=== PATIENT | female | born 1950 | race Caucasian/White ===

== ENCOUNTER 2021-11-23 10:44 | Inpatient (IN) ==
[2021-11-23 11:28] LABS: Basophils # (auto) 0.03 K/uL (0-0.2); Basophils % (auto) 0.2 %; Eosinophils # (auto) 0.05 K/uL (0-0.50); Eosinophils % (auto) 0.4 %; Hematocrit (blood only) 34.9 % (34.1-44.9); Hemoglobin 12.1 g/dl (12.0-16.0); Immature Granulocytes # (auto) 0.06 K/uL (0.00-0.02); Immature Granulocytes % (auto) 0.5 %; Lymphocytes # (auto) 1.83 K/uL (1.2-3.4); Lymphocytes % (auto) 14.7 %; Mean Corpuscular Hemoglobin 31.8 pg (25.0-34.0); Mean Corpuscular Hgb Conc 34.7 g/dL (32.0-36.0); Mean Corpuscular Volume 91.6 fL (80.0-100.0); Mean Platelet Volume 8.9 fL (9.4-12.3); Monocytes # (auto) 0.72 K/uL (0.24-0.82); Monocytes % (auto) 5.8 %; Neutrophils # (auto) 9.73 K/uL (1.4-6.5); Neutrophils % (auto) 78.4 %; Platelet Count 398 K/uL (130-400); RDW Standard Deviation 40.6 fL (36.4-46.3); Red Blood Count 3.81 M/uL (3.93-5.22); White Blood Count 12.42 K/ul (4.8-10.8)
[2021-11-23 11:46] LABS: Alanine Aminotransferase 12 U/L (7-52); Albumin Globulin Ratio 1.6 (0.9-2); Albumin Level 4.5 gm/dl (3.4-5.0); Alkaline Phosphatase 66 U/L (34-104); Anion Gap 14 (3-11); Aspartate Aminotransferase 12 U/L (13-39); BUN Creatinine Ratio 21.8 (10-20); Blood Urea Nitrogen 44 mg/dl (6-23); Calcium 9.8 mg/dl (8.5-10.1); Carbon Dioxide 22 mmol/L (21-32); Chloride 93 mmol/L (98-107); Est GFR (African American) 28.5 ml/min; Est GFR (Non-African American) 24.5 ml/min; Globulin 2.8 gm/dl (2.5-4.0); Glucose 165 mg/dl (70-99(Fasting)); Potassium 4.9 mmol/L (3.5-5.1); Sodium 129 mmol/L (136-145); Total Protein 7.3 gm/dl (6.0-8.3)
--- NOTE | 2021-11-23 12:10 | XRay Report ---
XR chest 1V portable HISTORY: Altered mental status. weakness COMPARISON: None. FINDINGS: No pneumothorax. No pleural effusions. There are low lung volumes. The heart is top normal in size. There are calcifications within the aortic knob. No focal lung consolidations to suggest pne umonia. No evidence for pulmonary edema. Small linear density lateral base of the left lower lobe fav ors subsegmental atelectasis are scarring. IMPRESSION: Low lung volumes. Otherwise, no acute process within the chest. ACT 112: Negative or not required by law. Electronically signed by: Moris Ann M.D. 11/23/2021 12:08 PM
--- NOTE | 2021-11-23 12:36 | Electrocardiogram Report ---
Test Reason : Blood Pressure : / mmHG Vent. Rate : 080 BPM Atrial Rate : 080 BPM P-R Int : 200 ms QRS Dur : 076 ms QT Int : 376 ms P-R-T Axes : 052 032 063 degrees QTc Int : 433 ms Normal sinus rhythm Low voltage QRS Abnormal ECG No previous ECGs available Confirmed by Artem Alcantar ([id number]) on 11/23/2021 12:36:27 PM Referred By: SELF Confirmed By:Mateusz Alcantar
[2021-11-23] MEDS ORDERED: QUEtiapine FUMARATE 25 MG TABLET PO STA (12:40)
[2021-11-23] MEDS ORDERED: SODIUM CHLORIDE 0.9% 1000ML 500 ML IV ONE (12:41)
[2021-11-23] MEDS ORDERED: HALOPERIDOL LACTATE 5 MG/ML 1 ML VIAL ONE (13:29)
[2021-11-23] MEDS: SODIUM CHLORIDE 0.9% 1000ML 1,000 ML IV SCH ×2 (13:36→21:58)
--- NOTE | 2021-11-23 14:00 | CT Scan Report ---
CT SCAN OF THE BRAIN WITHOUT IV CONTRAST CLINICAL HISTORY: Change in mental status. COMPARISON STUDY: No priors. TECHNIQUE: Unenhanced axial CT scan of the brain is performed from the vertex to the skull base. A do se lowering technique was utilized adhering to the principles of ALARA. CT DOSE: 537.48 mGy.cm FINDINGS: Brain parenchyma: There is age-related involutional change noting minimal subcortical and periventric ular microangiopathic disease. There is no hemorrhage, mass effect, or evidence of acute territorial ischemia by CT criteria. Ramos-white matter differentiation is preserved. No extra-axial fluid collect ion is seen. Ventricles, sulci, cisterns: Prominent secondary to involutional change. Intracranial vasculature: There is atherosclerotic calcification of the cavernous carotid arteries. Calvarium: Unremarkable. Sinuses and mastoids: The visualized paranasal sinuses are clear. The mastoid air cells are well pneu matized. Orbits: The bony orbits are grossly intact. There is a right ocular lens implant. IMPRESSION: There is no hemorrhage, mass effect, or evidence of acute territorial ischemia by CT chun urbina. ACT 112: Negative or not required by law. Electronically signed by: Sridhar Sifuentes M.D. 11/23/2021 1:59 PM
--- NOTE | 2021-11-23 15:35 | Emergency Department Note ---
Impression & Plan Hyponatremia, Acute kidney injury, Psychosis, Acute dehydration ED Provider Note CHIEF COMPLAINT: Abnormal labs, confusion HISTORY OF PRESENT ILLNESS: This 71-year-old female patient presents to the emergency department with complaints of laboratory work with an elevated creatinine and increase in psychotic thinking. The patient is currently an inpatient at the [facility] and was referred to our emergency department because of the low sodium and creatinine that has apparently gone from 0.9-2 over the last several days. The patient has had a decreased p.o. intake and does have some paranoid thinking. She is on multiple blood pressure medications in addition to her psychiatric treatments. She does have a history of diabetes. Patient is currently unable to answer questions and does have tangential thought process. She is unwilling to take any medications currently. REVIEW OF SYSTEMS: Unable to perform a full review of systems secondary to the patient's mental status/psychiatric illness. ALLERGIES: see below MEDICATIONS: see below PMH: see below SOCIAL HISTORY: see below DDx:Infection, dehydration, metabolic abnormality, hypo/hyperglycemia, el ectrolyte disturbance, anemia, hypoxia, cardiac sources, intracerebral event, toxicologic, neurologic, as well as other pathologies. PHYSICAL EXAM: Vital signs reviewed. General: Well-appearing 71-year-old female, in no significant distress. Slightly disheveled but ambulatory about the room. HEENT: No scleral icterus, PERRLA, neck supple. Dry mucous membranes. Cardiovascular: Regular rate and rhythm, no extra sounds. Pulmonary: Clear to auscultation bilaterally, normal work of breathing. Abdomen: Soft, nontender, nondistended, positive bowel sounds. Musculoskeletal: Atraumatic, no peripheral edema. Psychiatric: Paranoid about people present in the room. Speaking about Nazis and her parents. Accusatory thinking. Unable to answer more specific questions or to be redirected. Neurologic: Patient awake alert and aware that she is in the hospital. Believes that she is in [place] Skin: Warm, dry, no rash EMERGENCY DEPARTMENT COURSE/MDM: This patient was evaluated and appeared to be in no significant distress. The patient was somewhat paranoid and psychotic. She refused to take her Seroquel but was willing to take an IV. Patient took IV fluids but ripped out her IV shortly thereafter. She did receive 2.5 mg of IV Haldol. CT imaging of the head was performed and is negative for acute pathology. Electrolytes are significant only for mild hyponatremia at 129. Potassium is 4.9. I do believe the patient's renal insufficiency is explained by her medications including HCTZ and lisinopril as well as her poor p.o. intake. She refused p.o. fluids for me. She was willing to receive IV fluids and received at least 1 full liter of normal saline solution and had small 250 to 500 cc out of the second bag prior to ripping out her IV. Receive a call from Dr. Cote at the [facility] is concerned about the level of medical support that they have at their facility. I do believe that with some medication adjustments and helping the patient return to baseline p.o. intake the creatinine will recover. Nonetheless a renal ultrasound has been ordered and the hospitalist service has been consulted to ensure the patient is in optimal medical condition prior to returning for psychiatric care. Dr. Cote is aware that we do not have a psychiatrist available on the inpatient service this week due to staffing issues and COVID. MONITORING: An order for cardiac monitoring was placed and the patient is noted to be in a normal sinus rhythm at 73 beats per minute. RADIOLOGY: See below EKG: Normal sinus rhythm at 80 bpm. Low voltage QRS. QTC is 433. No PVC, no PVC. QTC is 433. No previous for comparison. DISPOSITION: Hospitalist consult Past Med/Surg History Medical History Acute dehydration Acute kidney injury Benzodiazepine withdrawal Diabetes Hypertension Hyponatremia Psychosis Surgical History (Updated 11/27/21 @ 09:35 by Gallo Hurley MD) S/P cataract surgery Family History Father , age 65 of an HI Myocardial infarction Mother , age 86 of congestive heart failure Heart disease Social History Smoking Status: Never smoker Hx Alcohol Use: No Hx Substance Use: Yes (unknown) Preferred Language: [place] Communication Ability: Impaired Slotter Operator Required: No Beliefs That Will Affect Care: None Current Living Situation: Spouse current occupational status: retired 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 Feels Safe at Home: Yes Assistive Devices: Cane Allergies Allergies Allergy/AdvReac Type Severity Reaction Status Date / Time ciprofloxacin Allergy Intermediate itching Unverified 11/23/21 10:55 Home Meds Home Medications Medication Instructions Recorded Confirmed acetaminophen 325 mg tablet 650 mg PO Q4H PRN Pain 11/23/21 11/23/21 atorvastatin 20 mg tablet 20 mg PO HS 11/23/21 11/23/21 metformin 500 mg tablet 1,000 mg PO BID 11/23/21 11/23/21 sitagliptin 50 mg tablet (Januvia) 50 mg PO BID 11/23/21 11/23/21 Previous Rx's Medication Instructions Recorded amlodipine 5 mg tablet 5 mg PO QAM #30 tabs 11/28/21 lisinopril 20 mg tablet 20 mg PO QAM #30 tabs 11/28/21 lorazepam 0.5 mg tablet 0.5 mg PO TID #30 tabs 11/28/21 quetiapine 25 mg tablet (Seroquel) 25 mg PO HS #30 tabs 11/28/21 valproic acid 250 mg capsule 500 mg PO BID #120 caps 11/28/21 Results & Data (ED) Vital Signs Vital Signs - 24 hr 11/23/21 10:38 11/23/21 11:02 11/23/21 11:10 Temperature 36.8 C Temperature Source Oral Pulse Rate 77 80 82 Pulse Rate from SpO2 Sensor 79 87 Pulse Rhythm Regular Respiratory Rate 16 22 17 Respiratory Depth Normal Blood Pressure 134/73 Blood Pressure Mean 93 Pulse Oximetry 100 97 98 Oxygen Delivery Method Room Air Sepsis Recent Fever Within 48 Hours No Sepsis New/Unexplained Change in Mental Status No Sepsis Action Taken by Nursing No Action Required 11/23/21 11:18 11/23/21 11:20 11/23/21 11:30 Temperature Temperature Source Pulse Rate 81 71 Pulse Rate from SpO2 Sensor Pulse Rhythm Respiratory Rate 21 12 Respiratory Depth Blood Pressure Blood Pressure Mean Pulse Oximetry 98 Oxygen Delivery Method Room Air Sepsis Recent Fever Within 48 Hours Sepsis New/Unexplained Change in Mental Status Sepsis Action Taken by Nursing 11/23/21 11:40 11/23/21 11:50 11/23/21 13:35 Temperature Temperature Source Pulse Rate 68 77 Pulse Rate from SpO2 Sensor Pulse Rhythm Respiratory Rate 15 23 Respiratory Depth Blood Pressure 114/59 L Blood Pressure Mean 77 Pulse Oximetry Oxygen Delivery Method Sepsis Recent Fever Within 48 Hours Sepsis New/Unexplained Change in Mental Status Sepsis Action Taken by Nursing 11/23/21 13:40 11/23/21 13:52 11/23/21 14:00 Temperature Temperature Source Pulse Rate 64 49 L 52 L Pulse Rate from SpO2 Sensor 65 50 L 53 L Pulse Rhythm Respiratory Rate 16 18 18 Respiratory Depth Blood Pressure Blood Pressure Mean Pulse Oximetry 94 95 95 Oxygen Delivery Method Sepsis Recent Fever Within 48 Hours Sepsis New/Unexplained Change in Mental Status Sepsis Action Taken by Nursing 11/23/21 14:10 Temperature Temperature Source Pulse Rate 73 Pulse Rate from SpO2 Sensor Pulse Rhythm Respiratory Rate 15 Respiratory Depth Blood Pressure Blood Pressure Mean Pulse Oximetry Oxygen Delivery Method Sepsis Recent Fever Within 48 Hours Sepsis New/Unexplained Change in Mental Status Sepsis Action Taken by [facility] Medications Current Medication List: was personally reviewed by me Laboratory Data Attestation: I reviewed the patient's lab results. Result diagrams: 11/27/21 05:36 11/27/21 05:36 Lab Results 11/23/21 11/23/21 11/23/21 Range/Units 10:52 10:52 10:52 WBC 12.42 H (4.8-10.8) K/ul RBC 3.81 L (3.93-5.22) M/uL Hgb 12.1 (12.0-16.0) g/dl Hct 34.9 (34.1-44.9) % MCV 91.6 (80.0-100.0) fL MCH 31.8 (25.0-34.0) pg MCHC 34.7 (32.0-36.0) g/dL RDW Std Deviation 40.6 (36.4-46.3) fL RDW Coeff of Farida 12.0 (11.5-14.5) % Plt Count 398 (130-400) K/uL MPV 8.9 L (9.4-12.3) fL Immature Gran % (Auto) 0.5 % Neut % (Auto) 78.4 % Lymph % (Auto) 14.7 % Thomas % (Auto) 5.8 % Eos % (Auto) 0.4 % Baso % (Auto) 0.2 % Neut # (Auto) 9.73 H (1.4-6.5) K/uL Lymph # (Auto) 1.83 (1.2-3.4) K/uL Thomas # (Auto) 0.72 (0.24-0.82) K/uL Eos # (Auto) 0.05 (0-0.50) K/uL Baso # (Auto) 0.03 (0-0.2) K/uL Immature Gran # (Auto) 0.06 H (0.00-0.02) K/uL Sodium 129 L (136-145) mmol/L Potassium 4.9 (3.5-5.1) mmol/L Chloride 93 L (98-107) mmol/L Carbon Dioxide 22 (21-32) mmol/L Anion Gap 14 H (3-11) BUN 44 H (6-23) mg/dl Creatinine 2.02 H (0.6-1.2) mg/dl Est Cr Clr Drug Dosing Not Reportable Est GFR ( Amer) 28.5 ml/min Est GFR (Non-Af Amer) 24.5 ml/min BUN/Creatinine Ratio 21.8 H (10-20) Glucose 165 H (70-99(Fasting)) mg/dl Calcium 9.8 (8.5-10.1) mg/dl Total Bilirubin 2.0 H (0.2-1.0) mg/dl AST 12 L (13-39) U/L ALT 12 (7-52) U/L Alkaline Phosphatase 66 (34-104) U/L Total Protein 7.3 (6.0-8.3) gm/dl Albumin 4.5 (3.4-5.0) gm/dl Globulin 2.8 (2.5-4.0) gm/dl Albumin/Globulin Ratio 1.6 (0.9-2) TSH 1.231 (0.300-4.500) uIu/ml Urine Color Urine Appearance (Clear) Urine pH (4.5-7.5) Ur Specific [place] (1.000-1.030) Urine Protein (Negative) Urine Glucose (UA) (Negative) Urine Ketones (Negative) Urine Blood (Negative) Urine Nitrite (Negative) Urine Bilirubin (Negative) Urine Urobilinogen (Negative) Ur Leukocyte Esterase (Negative) SARS-CoV-2, RNA, NAAT (NEGATIVE) 11/23/21 11/23/21 11/23/21 Range/Units 11:22 15:25 21:30 WBC (4.8-10.8) K/ul RBC (3.93-5.22) M/uL Hgb (12.0-16.0) g/dl Hct (34.1-44.9) % MCV (80.0-100.0) fL MCH (25.0-34.0) pg MCHC (32.0-36.0) g/dL RDW Std Deviation (36.4-46.3) fL RDW Coeff of Farida (11.5-14.5) % Plt Count (130-400) K/uL MPV (9.4-12.3) fL Immature Gran % (Auto) % Neut % (Auto) % Lymph % (Auto) % Thomas % (Auto) % Eos % (Auto) % Baso % (Auto) % Neut # (Auto) (1.4-6.5) K/uL Lymph # (Auto) (1.2-3.4) K/uL Thomas # (Auto) (0.24-0.82) K/uL Eos # (Auto) (0-0.50) K/uL Baso # (Auto) (0-0.2) K/uL Immature Gran # (Auto) (0.00-0.02) K/uL Sodium 129 L (136-145) mmol/L Potassium 4.5 (3.5-5.1) mmol/L Chloride 97 L (98-107) mmol/L Carbon Dioxide 20 L (21-32) mmol/L Anion Gap 12 H (3-11) BUN 44 H (6-23) mg/dl Creatinine 1.91 H (0.6-1.2) mg/dl Est Cr Clr Drug Dosing Not Reportable Est GFR ( Amer) 30.4 ml/min Est GFR (Non-Af Amer) 26.3 ml/min BUN/Creatinine Ratio 23.0 H (10-20) Glucose 181 H (70-99(Fasting)) mg/dl Calcium 8.9 (8.5-10.1) mg/dl Total Bilirubin (0.2-1.0) mg/dl AST (13-39) U/L ALT (7-52) U/L Alkaline Phosphatase (34-104) U/L Total Protein (6.0-8.3) gm/dl Albumin (3.4-5.0) gm/dl Globulin (2.5-4.0) gm/dl Albumin/Globulin Ratio (0.9-2) TSH (0.300-4.500) uIu/ml Urine Color Yellow Urine Appearance Clear (Clear) Urine pH 5.0 (4.5-7.5) Ur Specific [place] 1.012 (1.000-1.030) Urine Protein Negative (Negative) Urine Glucose (UA) Negative (Negative) Urine Ketones Trace H (Negative) Urine Blood Negative (Negative) Urine Nitrite Negative (Negative) Urine Bilirubin Negative (Negative) Urine Urobilinogen Negative (Negative) Ur Leukocyte Esterase Negative (Negative) SARS-CoV-2, RNA, NAAT NEGATIVE (NEGATIVE) 11/24/21 11/24/21 11/25/21 Range/Units 08:24 08:24 06:39 WBC 12.93 H 13.05 H (4.8-10.8) K/ul RBC 3.47 L 3.78 L (3.93-5.22) M/uL Hgb 11.1 L 12.0 (12.0-16.0) g/dl Hct 31.7 L 34.6 (34.1-44.9) % MCV 91.4 91.5 (80.0-100.0) fL MCH 32.0 31.7 (25.0-34.0) pg MCHC 35.0 34.7 (32.0-36.0) g/dL RDW Std Deviation 40.1 39.8 (36.4-46.3) fL RDW Coeff of Farida 12.0 11.9 (11.5-14.5) % Plt Count 330 345 (130-400) K/uL MPV 8.8 L 8.5 L (9.4-12.3) fL Immature Gran % (Auto) 0.3 0.3 % Neut % (Auto) 76.9 73.7 % Lymph % (Auto) 13.4 16.2 % Thomas % (Auto) 8.4 8.7 % Eos % (Auto) 0.7 0.7 % Baso % (Auto) 0.3 0.4 % Neut # (Auto) 9.95 H 9.63 H (1.4-6.5) K/uL Lymph # (Auto) 1.73 2.11 (1.2-3.4) K/uL Thomas # (Auto) 1.08 H 1.13 H (0.24-0.82) K/uL Eos # (Auto) 0.09 0.09 (0-0.50) K/uL Baso # (Auto) 0.04 0.05 (0-0.2) K/uL Immature Gran # (Auto) 0.04 H 0.04 H (0.00-0.02) K/uL Sodium 132 L (136-145) mmol/L Potassium 4.3 (3.5-5.1) mmol/L Chloride 101 (98-107) mmol/L Carbon Dioxide 21 (21-32) mmol/L Anion Gap 10 (3-11) BUN 30 H (6-23) mg/dl Creatinine 1.41 H D (0.6-1.2) mg/dl Est Cr Clr Drug Dosing 39.3 Est GFR ( Amer) 43.9 ml/min Est GFR (Non-Af Amer) 37.9 ml/min BUN/Creatinine Ratio 21.3 H (10-20) Glucose 149 H (70-99(Fasting)) mg/dl Calcium 8.7 (8.5-10.1) mg/dl Total Bilirubin 1.4 H (0.2-1.0) mg/dl AST 12 L (13-39) U/L ALT 11 (7-52) U/L Alkaline Phosphatase 58 (34-104) U/L Total Protein 6.6 (6.0-8.3) gm/dl Albumin 4.0 (3.4-5.0) gm/dl Globulin 2.6 (2.5-4.0) gm/dl Albumin/Globulin Ratio 1.5 (0.9-2) TSH (0.300-4.500) uIu/ml Urine Color Urine Appearance (Clear) Urine pH (4.5-7.5) Ur Specific [place] (1.000-1.030) Urine Protein (Negative) Urine Glucose (UA) (Negative) Urine Ketones (Negative) Urine Blood (Negative) Urine Nitrite (Negative) Urine Bilirubin (Negative) Urine Urobilinogen (Negative) Ur Leukocyte Esterase (Negative) SARS-CoV-2, RNA, NAAT (NEGATIVE) 11/25/21 Range/Units 06:39 WBC (4.8-10.8) K/ul RBC (3.93-5.22) M/uL Hgb (12.0-16.0) g/dl Hct (34.1-44.9) % MCV (80.0-100.0) fL MCH (25.0-34.0) pg MCHC (32.0-36.0) g/dL RDW Std Deviation (36.4-46.3) fL RDW Coeff of Farida (11.5-14.5) % Plt Count (130-400) K/uL MPV (9.4-12.3) fL Immature Gran % (Auto) % Neut % (Auto) % Lymph % (Auto) % Thomas % (Auto) % Eos % (Auto) % Baso % (Auto) % Neut # (Auto) (1.4-6.5) K/uL Lymph # (Auto) (1.2-3.4) K/uL Thomas # (Auto) (0.24-0.82) K/uL Eos # (Auto) (0-0.50) K/uL Baso # (Auto) (0-0.2) K/uL Immature Gran # (Auto) (0.00-0.02) K/uL Sodium 134 L (136-145) mmol/L Potassium 4.0 (3.5-5.1) mmol/L Chloride 103 (98-107) mmol/L Carbon Dioxide 22 (21-32) mmol/L Anion Gap 9 (3-11) BUN 19 (6-23) mg/dl Creatinine 1.10 D (0.6-1.2) mg/dl Est Cr Clr Drug Dosing 50.4 Est GFR ( Amer) 59.3 ml/min Est GFR (Non-Af Amer) 51.2 ml/min BUN/Creatinine Ratio 17.3 (10-20) Glucose 178 H (70-99(Fasting)) mg/dl Calcium 8.9 (8.5-10.1) mg/dl Total Bilirubin 1.2 H (0.2-1.0) mg/dl AST 11 L (13-39) U/L ALT 11 (7-52) U/L Alkaline Phosphatase 59 (34-104) U/L Total Protein 6.7 (6.0-8.3) gm/dl Albumin 4.0 (3.4-5.0) gm/dl Globulin 2.7 (2.5-4.0) gm/dl Albumin/Globulin Ratio 1.5 (0.9-2) TSH (0.300-4.500) uIu/ml Urine Color Urine Appearance (Clear) Urine pH (4.5-7.5) Ur Specific [place] (1.000-1.030) Urine Protein (Negative) Urine Glucose (UA) (Negative) Urine Ketones (Negative) Urine Blood (Negative) Urine Nitrite (Negative) Urine Bilirubin (Negative) Urine Urobilinogen (Negative) Ur Leukocyte Esterase (Negative) SARS-CoV-2, RNA, NAAT (NEGATIVE) Administered Medications Discontinued Medications Acetaminophen (Acetaminophen 325 Mg Tab) 650 mg PO Q4H PRN PRN Reason: pain/fever Stop: 12/23/21 21:49 Last Admin: 11/28/21 14:08 Dose: 650 mg Documented By: Admin: 11/28/21 05:47 Dose: 650 mg Documented By: Admin: 11/28/21 00:20 Dose: 650 mg Documented By: Admin: 11/27/21 17:30 Dose: 650 mg Documented By: Admin: 11/27/21 04:16 Dose: 650 mg Documented By: Admin: 11/26/21 17:36 Dose: 650 mg Documented By: [id number] Admin: 11/24/21 09:35 Dose: 650 mg Documented By: YOANDY(2) Albuterol (Albuterol Hfa 8 Gm Inhaler) 2 puffs INH NOW ONE Stop: 11/28/21 15:15 Last Admin: 11/28/21 16:57 Dose: 2 puffs Documented By: SCOTT Amlodipine Besylate (Amlodipine Besylate 5 Mg Tab) [facility] Stop: 12/24/21 08:59 Last Admin: 11/25/21 08:55 Dose: 10 mg Documented By: Admin: 11/24/21 12:54 Dose: 10 mg Documented By: YOANDY(2) Atorvastatin Calcium (Atorvastatin 20 Mg Tab) 20 mg PO HS [facility] Stop: 12/23/21 21:49 Last Admin: 11/27/21 21:43 Dose: 20 mg Documented By: Admin: 11/26/21 20:38 Dose: 20 mg Documented By: Admin: 11/25/21 20:07 Dose: 20 mg Documented By: Admin: 11/24/21 20:24 Dose: 20 mg Documented By: Admin: 11/23/21 22:31 Dose: Not Given Documented By: BOY Carvedilol (Carvedilol 12.5 Mg Tab) 12.5 mg PO BIDM DESIRAE Stop: 12/23/21 21:49 Last Admin: 11/25/21 16:59 Dose: 12.5 mg Documented By: Admin: 11/25/21 08:55 Dose: 12.5 mg Documented By: Admin: 11/24/21 20:24 Dose: 12.5 mg Documented By: Admin: 11/24/21 12:54 Dose: 12.5 mg Documented By: YOANDY(2) Admin: 11/23/21 22:26 Dose: 12.5 mg Documented By: BOY Enoxaparin Sodium (Enoxaparin Inj 40 Mg/0.4 Ml Syr) 40 mg SQ Q24H DESIRAE Stop: 12/27/21 12:59 Last Admin: 11/28/21 14:08 Dose: 40 mg Documented By: Admin: 11/27/21 13:43 Dose: 40 mg Documented By: NILSA Etomidate (Etomidate 2 Mg/Ml 20 Ml Vial) 25 mg IV NOW ONE Stop: 11/25/21 21:29 Last Admin: 11/25/21 23:43 Dose: Not Given Documented By: VALERIE Fentanyl Citrate (Fentanyl Citrate 2,500 Mcg/250 Ml Bag) Confirm Administered Dose 2,500 mcg IV .STK-MED ONE Stop: 11/25/21 22:11 Last Admin: 11/25/21 23:44 Dose: Not Given Documented By: VALERIE Gadobutrol (Gadobutrol 30ml Vial) 7.8 ml IV ONCE ONE Stop: 11/26/21 11:00 Last Admin: 11/26/21 10:33 Dose: 7.8 ml Documented By: SHER Haloperidol Lactate (Haloperidol Lactate 5 Mg/Ml 1 Ml Vial) Confirm Administered Dose 5 mg .ROUTE .STK-MED ONE Stop: 11/23/21 13:30 Last Admin: 11/23/21 13:35 Dose: 2.5 mg Documented By: AB Heparin Sodium (Porcine) (Heparin Sod 5,000 Unit/0.5 Ml Vial) 5,000 units SQ Q12 DESIRAE Stop: 12/26/21 08:59 Last Admin: 11/27/21 07:34 Dose: 5,000 units Documented By: Admin: 11/26/21 20:38 Dose: 5,000 units Documented By: Admin: 11/26/21 08:17 Dose: 5,000 units Documented By: [id number] Sodium Chloride (Nss 1000ml) 500 mls @ 999 mls/hr IV .Q31M ONE Stop: 11/23/21 13:11 Last Infusion: 11/23/21 14:05 Dose: 0 mls/hr Documented By: Admin: 11/23/21 13:35 Dose: 999 mls/hr Documented By: AB Sodium Chloride (Nss 1000ml) 1,000 mls @ 70 mls/hr IV .[id number] DESIRAE Stop: 12/23/21 12:44 Last Infusion: 11/25/21 09:45 Dose: 0 mls/hr Documented By: Infusion: 11/25/21 08:48 Dose: 0 mls/hr Documented By: Admin: 11/25/21 06:40 Dose: 150 mls/hr Documented By: Infusion: 11/25/21 06:40 Dose: 150 mls/hr Documented By: Admin: 11/25/21 00:26 Dose: 150 mls/hr Documented By: Infusion: 11/25/21 00:26 Dose: 150 mls/hr Documented By: Admin: 11/24/21 20:21 Dose: Not Given Documented By: Admin: 11/24/21 18:26 Dose: 150 mls/hr Documented By: YOANDY(2) Infusion: 11/24/21 11:23 Dose: 150 mls/hr Documented By: YOANDY(2) Admin: 11/24/21 04:42 Dose: 150 mls/hr Documented By: Infusion: 11/24/21 04:39 Dose: 150 mls/hr Documented By: Admin: 11/23/21 21:58 Dose: 150 mls/hr Documented By: Infusion: 11/23/21 17:17 Dose: 0 mls/hr Documented By: Admin: 11/23/21 13:36 Dose: 150 mls/hr Documented By: AB Levetiracetam 500 mg/ Sodium (Chloride) 105 mls @ 420 mls/hr IV Q12H DESIRAE Stop: 12/26/21 08:59 Last Infusion: 11/26/21 11:26 Dose: 0 mls/hr Documented By: [id number] Admin: 11/26/21 08:18 Dose: 420 mls/hr Documented By: [id number] Midazolam HCl (Versed) 125 mg in 250 mls @ 2 mls/hr IV .Q96H DESIRAE; Protocol Stop: 12/25/21 22:14 Last Titration: 11/26/21 11:26 Dose: 0 mg/hr, 0 mls/hr Documented By: [id number] Co-signed By: AGNES Titration: 11/26/21 07:07 Dose: 2 mg/hr, 4 mls/hr Documented By: AGNES Co-signed By: VALERIE Admin: 11/25/21 23:46 Dose: 2 mg/hr, 4 mls/hr Documented By: VALERIE Co-signed By: SHAE Fentanyl Citrate (Fentanyl Citrate) 2,500 mcg in 250 mls @ 0 mls/hr IV .Q0M DESIRAE; Protocol Stop: 12/09/21 22:14 Last Titration: 11/26/21 12:12 Dose: 0 mcg/hr, 0 mls/hr Documented By: [id number] Co-signed By: AVA Titration: 11/26/21 11:45 Dose: 75 mcg/hr, 7.5 mls/hr Documented By: [id number] Co-signed By: AGNES Titration: 11/26/21 07:07 Dose: 100 mcg/hr, 10 mls/hr Documented By: AGNES Co-signed By: VALERIE Admin: 11/25/21 23:45 Dose: 100 mcg/hr, 10 mls/hr Documented By: VALERIE Co-signed By: SHAE Levetiracetam 500 mg/ Sodium (Chloride) 105 mls @ 420 mls/hr IV NOW ONE Stop: 11/25/21 22:24 Last Infusion: 11/26/21 00:26 Dose: 0 mls/hr Documented By: Admin: 11/25/21 23:44 Dose: 420 mls/hr Documented By: VALERIE Sodium Chloride (Nss 1000ml) 1,000 mls @ 125 mls/hr IV .Q8H DESIRAE Stop: 12/25/21 23:29 Last Admin: 11/27/21 10:54 Dose: Not Given Documented By: Infusion: 11/27/21 10:53 Dose: 0 mls/hr Documented By: Admin: 11/27/21 01:55 Dose: 125 mls/hr Documented By: Infusion: 11/27/21 00:57 Dose: 125 mls/hr Documented By: Infusion: 11/26/21 22:03 Dose: 125 mls/hr Documented By: Infusion: 11/26/21 21:20 Dose: 0 mls/hr Documented By: Admin: 11/26/21 16:14 Dose: 125 mls/hr Documented By: [id number] Infusion: 11/26/21 15:31 Dose: 125 mls/hr Documented By: [id number] Admin: 11/26/21 07:31 Dose: 125 mls/hr Documented By: [id number] Infusion: 11/26/21 07:31 Dose: 125 mls/hr Documented By: [id number] Admin: 11/25/21 23:46 Dose: 125 mls/hr Documented By: VALERIE Magnesium Sulfate/Dextrose (Magnesium Sulfate / D5w) 1 gm in 100 mls @ 50 mls/hr IV Q2H DESIRAE Stop: 11/26/21 04:59 Last Infusion: 11/26/21 05:31 Dose: 0 mls/hr Documented By: Admin: 11/26/21 03:16 Dose: 50 mls/hr Documented By: Infusion: 11/26/21 03:16 Dose: 50 mls/hr Documented By: Y Admin: 11/26/21 01:23 Dose: 50 mls/hr Documented By: VALERIE Potassium Phosphate 30 mmol/ (Sodium Chloride) 510 mls @ 88 mls/hr IV ONE ONE Stop: 11/26/21 12:32 Last Infusion: 11/26/21 14:27 Dose: 0 mls/hr Documented By: [id number] Admin: 11/26/21 07:30 Dose: 88 mls/hr Documented By: [id number] Propofol (Diprivan) 1,000 mg in 100 mls @ 0 mls/hr IV .Q0M DESIRAE; Protocol Stop: 11/29/21 07:29 Last Titration: 11/26/21 12:45 Dose: 0 mcg/kg/min, 0 mls/hr Documented By: [id number] Titration: 11/26/21 12:12 Dose: 0 mcg/kg/min, 0 mls/hr Documented By: [id number] Titration: 11/26/21 11:59 Dose: 5 mcg/kg/min, 2.4 mls/hr Documented By: [id number] Titration: 11/26/21 11:54 Dose: 10 mcg/kg/min, 4.7 mls/hr Documented By: [id number] Titration: 11/26/21 11:44 Dose: 15 mcg/kg/min, 7.1 mls/hr Documented By: [id number] Admin: 11/26/21 07:31 Dose: 20 mcg/kg/min, 9.5 mls/hr Documented By: [id number] Co-signed By: AGNES Valproic Acid 1,000 mg/ (Dextrose) 60 mls @ 55 mls/hr IV ONE ONE Stop: 11/26/21 11:05 Last Infusion: 11/26/21 12:45 Dose: 0 mls/hr Documented By: [id number] Admin: 11/26/21 11:12 Dose: 55 mls/hr Documented By: [id number] Valproic Acid 250 mg/ Dextrose 52.5 mls @ 55 mls/hr IV Q6H DESIRAE Stop: 12/26/21 15:59 Last Infusion: 11/27/21 05:15 Dose: 0 mls/hr Documented By: Admin: 11/27/21 04:17 Dose: 55 mls/hr Documented By: Infusion: 11/26/21 22:03 Dose: 0 mls/hr Documented By: Admin: 11/26/21 21:05 Dose: 55 mls/hr Documented By: Infusion: 11/26/21 17:15 Dose: 0 mls/hr Documented By: [id number] Admin: 11/26/21 16:14 Dose: 55 mls/hr Documented By: [id number] Magnesium Sulfate/Dextrose (Magnesium Sulfate / D5w) 1 gm in 100 mls @ 50 mls/hr IV Q2H DESIRAE Stop: 11/27/21 12:59 Last Infusion: 11/27/21 14:48 Dose: 0 mls/hr Documented By: Admin: 11/27/21 12:40 Dose: 50 mls/hr Documented By: Infusion: 11/27/21 12:39 Dose: 0 mls/hr Documented By: Admin: 11/27/21 10:26 Dose: 50 mls/hr Documented By: Infusion: 11/27/21 09:33 Dose: 50 mls/hr Documented By: Admin: 11/27/21 07:33 Dose: 50 mls/hr Documented By: AGNES Insulin Aspart (Insulin Aspart Per Unit) 0 units SC ACHS DESIRAE Stop: 12/26/21 16:29 Last Admin: 11/28/21 17:26 Dose: Not Given Documented By: Admin: 11/28/21 12:32 Dose: 1 units Documented By: [email or web address] Co-signed By: [email or web address] Admin: 11/28/21 08:58 Dose: Not Given Documented By: Admin: 11/27/21 21:45 Dose: 1 units Documented By: [email or web address] Co-signed By: [id number] Admin: 11/27/21 17:03 Dose: 1 units Documented By: [email or web address] Co-signed By: GUDELIA Admin: 11/27/21 11:11 Dose: 1 units Documented By: AGNES Co-signed By: [email or web address] Admin: 11/27/21 07:35 Dose: Not Given Documented By: AGNES Co-signed By: [email or web address] Admin: 11/26/21 20:10 Dose: Not Given Documented By: Admin: 11/26/21 16:28 Dose: 1 units Documented By: [id number] Co-signed By: AGNES Levetiracetam (Levetiracetam 250 Mg Tab) 250 mg PO HS DESIRAE Stop: 12/23/21 21:49 Last Admin: 11/23/21 22:27 Dose: 250 mg Documented By: BOY Lorazepam (Lorazepam 0.5 Mg Tab) 0.5 mg PO TID DESIRAE Stop: 12/26/21 09:44 Last Admin: 11/28/21 14:08 Dose: 0.5 mg Documented By: Admin: 11/28/21 09:03 Dose: 0.5 mg Documented By: Admin: 11/27/21 21:43 Dose: 0.5 mg Documented By: Admin: 11/27/21 13:43 Dose: 0.5 mg Documented By: Admin: 11/27/21 07:36 Dose: 0.5 mg Documented By: Admin: 11/26/21 20:38 Dose: 0.5 mg Documented By: Admin: 11/26/21 14:03 Dose: 0.5 mg Documented By: [id number] Admin: 11/26/21 11:12 Dose: 0.5 mg Documented By: [id number] Midazolam HCl (Midazolam Hcl 125mg/250ml D5w) Confirm Administered Dose 125 mg .ROUTE .STK-MED ONE Stop: 11/25/21 22:12 Last Admin: 11/25/21 23:44 Dose: Not Given Documented By: VALERIE Miscellaneous (Rapid Sequence Induction Bag) Confirm Administered Dose 1 each .ROUTE .STK-MED ONE Stop: 11/25/21 21:29 Last Admin: 11/25/21 23:43 Dose: 1 each Documented By: VALERIE Polyethylene Glycol (Polyethylene (Miralax) 17 Gm Pack) 17 gm PO DAILY DESIRAE Stop: 12/25/21 08:59 Last Admin: 11/25/21 08:53 Dose: Not Given Documented By: MYNOR Potassium Chloride (Potassium Chloride 20 Meq/15 Ml Udc) 40 meq PO NOW STA Stop: 11/26/21 06:36 Last Admin: 11/26/21 07:33 Dose: 40 meq Documented By: [id number] Potassium Chloride (Potassium Chloride Crtab 20 Meq Tabcr) 20 meq PO NOW STA Stop: 11/27/21 06:36 Last Admin: 11/27/21 07:33 Dose: 20 meq Documented By: AGNES Potassium Phosphate (Potassium Phos 3 Mmol/1 Ml Infusion) 30 mmol IV NOW STA Stop: 11/26/21 06:36 Last Admin: 11/26/21 11:30 Dose: Not Given Documented By: [id number] Propofol (Propofol Iv Emulsion 10 Mg/Ml 100 Ml Vial) Confirm Administered Dose 1,000 mg IV .STK-MED ONE Stop: 11/25/21 21:44 Last Admin: 11/25/21 23:44 Dose: Not Given Documented By: VALERIE Quetiapine Fumarate (Quetiapine Fumarate 25 Mg Tablet) 12.5 mg PO NOW STA Stop: 11/23/21 12:41 Last Admin: 11/23/21 17:18 Dose: Not Given Documented By: KAILEY Quetiapine Fumarate (Quetiapine Fumarate 25 Mg Tablet) 12.5 mg PO Q4H PRN PRN Reason: Agitation Stop: 12/23/21 21:49 Last Admin: 11/25/21 11:06 Dose: 12.5 mg Documented By: Admin: 11/24/21 09:34 Dose: 12.5 mg Documented By: YOANDY(2) Quetiapine Fumarate (Quetiapine Fumarate 25 Mg Tablet) 50 mg PO HS DESIRAE Stop: 12/23/21 21:49 Last Admin: 11/24/21 20:25 Dose: 50 mg Documented By: Admin: 11/23/21 22:27 Dose: 50 mg Documented By: BOY Quetiapine Fumarate (Quetiapine Fumarate 25 Mg Tablet) 25 mg PO DESIRAE Stop: 12/25/21 20:59 Last Admin: 11/25/21 20:07 Dose: 25 mg Documented By: BERTHA Senna/Docusate Sodium (Docusate Sodium/Senna 50/8.6mg Tab) 1 tab PO QA DESIRAE Stop: 12/25/21 07:44 Last Admin: 11/28/21 08:58 Dose: Not Given Documented By: Admin: 11/27/21 07:33 Dose: 1 tab Documented By: Admin: 11/26/21 08:17 Dose: Not Given Documented By: [id number] Admin: 11/25/21 09:11 Dose: Not Given Documented By: Admin: 11/25/21 09:11 Dose: Not Given Documented By: MYNOR Succinylcholine Chloride (Succinylcholine Chloride 20 Mg/Ml 10 Ml Vial) 100 mg IV NOW STA Stop: 11/25/21 21:29 Last Admin: 11/25/21 23:43 Dose: Not Given Documented By: Y Valproic Acid (Valproic Acid Soln 500 Mg/10 Ml Udc) 500 mg PO BID DESIRAE Stop: 12/27/21 09:59 Last Admin: 11/28/21 08:58 Dose: 500 mg Documented By: Admin: 11/27/21 21:43 Dose: 500 mg Documented By: Admin: 11/27/21 10:06 Dose: 500 mg Documented By: AGNES Venlafaxine HCl (Venlafaxine Hcl Xr 75 Mg Capxr) 75 mg PO QAM DESIRAE Stop: 12/24/21 08:59 Last Admin: 11/24/21 21:45 Dose: Not Given Documented By: ESG Venlafaxine HCl (Venlafaxine Hcl Xr 37.5 Mg Capxr) 37.5 mg PO QAM DESIRAE Stop: 12/25/21 08:59 Last Admin: 11/25/21 11:06 Dose: 37.5 mg Documented By: MYNOR Imaging Data Attestation: I personally reviewed and interpreted this imaging study as follows: Radiologist's Impression: Chest X-Ray 11/23/21 11:18 XR chest 1V portable HISTORY: Altered mental status. weakness COMPARISON: None. FINDINGS: No pneumothorax. No pleural effusions. There are low lung volumes. The heart is top normal in size. There are calcifications within the aortic knob. No focal lung consolidations to suggest pneumonia. No evidence for pulmonary edema. Small linear density lateral base of the left lower lobe favors subsegmental atelectasis are scarring. IMPRESSION: Low lung volumes. Otherwise, no acute process within the chest. ACT 112: Negative or not required by law. Electronically signed by: Moris Ann M.D. 11/23/2021 12:[address] 11/23/21 11:19 CT SCAN OF THE BRAIN WITHOUT IV CONTRAST CLINICAL HISTORY: Change in mental status. COMPARISON STUDY: No priors. TECHNIQUE: Unenhanced axial CT scan of the brain is performed from the vertex to the skull base. A dose lowering technique was utilized adhering to the principles of ALARA. CT DOSE: 537.48 mGy.cm FINDINGS: Brain parenchyma: There is age-related involutional change noting minimal subcortical and periventricular microangiopathic disease. There is no hemorrhage, mass effect, or evidence of acute territorial ischemia by CT criteria. Ramos-white matter differentiation is preserved. No extra-axial fluid collection is seen. Ventricles, sulci, cisterns: Prominent secondary to involutional change. Intracranial vasculature: There is atherosclerotic calcification of the cavernous carotid arteries. Calvarium: Unremarkable. Sinuses and mastoids: The visualized paranasal sinuses are clear. The mastoid air cells are well pneumatized. Orbits: The bony orbits are grossly intact. There is a right ocular lens implant. IMPRESSION: There is no hemorrhage, mass effect, or evidence of acute territorial ischemia by CT criteria. ACT 112: Negative or not required by law. Electronically signed by: Sridhar Sifuentes M.D. 11/23/2021 1:59 PM Blood Pressure Blood Pressure Findings: Normal blood pressure Blood Pressure Disposition: did not require urgent referral Discharge Plan Visit Data Chief Complaint: Confusion Stated Complaint: AMS ED Provider: Noris Garcia Discharge Problem: Hyponatremia, Acute kidney injury, Psychosis, Acute dehydration Patient Disposition: Admitted As Inpatient Condition: Good Discharge Instructions Interventions: ED Discharge Assessment Last Done: 11/23/21 20:26
[2021-11-23 16:02] LABS: Anion Gap 12 (3-11); Blood Urea Nitrogen 44 mg/dl (6-23); Calcium 8.9 mg/dl (8.5-10.1); Carbon Dioxide 20 mmol/L (21-32); Chloride 97 mmol/L (98-107); Est GFR (African American) 30.4 ml/min; Est GFR (Non-African American) 26.3 ml/min; Glucose 181 mg/dl (70-99(Fasting)); Potassium 4.5 mmol/L (3.5-5.1); Sodium 129 mmol/L (136-145)
--- NOTE | 2021-11-23 16:18 | Ultrasound Report ---
RENAL ULTRASOUND HISTORY: Acute kidney injury. COMPARISON: None. FINDINGS: Right kidney: 11.2 cm. No hydronephrosis. Normal corticomedullary differentiation and cortical thickn ess. Left kidney: 10.2 cm. No hydronephrosis. Normal corticomedullary differentiation and cortical thickne ss. Bladder: No bladder wall thickening. Only the right ureteral jet was identified this time. IMPRESSION: 1. Normal kidneys. 2. Normal bladder. ACT 112: Negative or not required by law. Electronically signed by: Moris Ann M.D. 11/23/2021 4:16 PM
--- NOTE | 2021-11-23 16:19 | History & Physical Report ---
Date of Service November 23, 2021 Assessment & Plan (1) GABI (acute kidney injury): Plan: Hold lisinopril and HCTZ LR @ 125 ml/hr Repeat BMP in AM (2) Acute dehydration: Plan: IV fluids as above (3) Diarrhea: Plan: Stool PCR is able and diarrhea continues. Possibly contributing towards diarrhea. (4) Hyponatremia: Plan: Suspect due to poor intake and HCTZ use. IV fluids as above (5) Groin pain: Plan: Complained of bilateral groin pain to RN. Unable to examine her at the current time. UA when/if able (6) Psychosis: Plan: paranoid delusions. Expressed Zach is controlling her brain and she needs help froma burning room from RN. Mute to myself. Pulling out IVs Continue Seroquel (7) Hypertension: Plan: Continue amlodipine and carvedilol. Stop lisinopril and carvedilol as above Plan VTE Prophylaxis - low risk and increased risk of delusions/delirium therefore deferred Diet - regular Disposition observation status to med/surg Admission and Anticipated Discharge Date Admission Date: November 23, 2021 History of Present Illness Chief Complaint: Increased creatinine Primary Care Provider: NO PCP Kenya Lord is a 71 year old female who presents from the [facility] due to GABI on routine lab work. Unable to get any history from the patient as she will not talk to me, just stares blankly back at me. She has expressed paranoid thinking to her RN in the ER with asking to be kept safe from the room of fire and saying someone called Zach is controlling her brain. Reportedly because of these paranoid delusions she hasn't been eating or drinking well likely leading to GABI in setting of lisinopril and HCTZ use in addition. Reportedly she has also had some diarrhea while going to the bathroom in the Emergency room. She has also complained of groin pain but will not let me examine this area. Allergies Allergy/AdvReac Type Severity Reaction Status Date / Time ciprofloxacin Allergy Intermediate itching Unverified 11/23/21 10:55 Home Medications Medication Instructions Recorded Confirmed Type acetaminophen 325 mg tablet 650 mg PO Q4H PRN Pain 11/23/21 11/23/21 History amlodipine 5 mg tablet 10 mg PO QAM 11/23/21 11/23/21 History atorvastatin 20 mg tablet 20 mg PO HS 11/23/21 11/23/21 History carvedilol 3.125 mg tablet 12.5 mg PO BIDM 11/23/21 11/23/21 History donepezil 5 mg tablet 5 mg PO HS 11/23/21 11/23/21 History hydrochlorothiazide 25 mg tablet 25 mg PO QAM 11/23/21 11/23/21 History levetiracetam 250 mg tablet 250 mg PO HS 11/23/21 11/23/21 History lisinopril 20 mg tablet 40 mg PO QAM 11/23/21 11/23/21 History metformin 500 mg tablet 1,000 mg PO BID 11/23/21 11/23/21 History potassium chloride 10 mEq 10 meq PO BID 11/23/21 11/23/21 History capsule,extended release quetiapine 25 mg tablet 12.5 mg PO Q4H PRN Agitation 11/23/21 11/23/21 History quetiapine 50 mg tablet 50 mg PO HS 11/23/21 11/23/21 History sitagliptin 50 mg tablet (Januvia) 50 mg PO BID 11/23/21 11/23/21 History venlafaxine 37.5 mg 37.5 mg PO DAILY@1300 11/23/21 11/23/21 History capsule,extended release 24 hr venlafaxine 75 mg tablet,extended 75 mg PO QAM 11/23/21 11/23/21 History release 24 hr Past Med/Surg History Medical History (Updated 11/23/21 @ 17:35 by Sonny Garcia MD) Acute dehydration Acute kidney injury Diabetes Hypertension Hyponatremia Psychosis Social History (Updated 11/23/21 @ 15:43 by Noris Garcia MD) Smoking Status: Unknown if ever smoked Hx Substance Use: Yes (unknown) Preferred Language: Hebrew Communication Ability: Impaired Field Servicer Required: No Beliefs That Will Affect Care: None Current Living Situation: Other Current Living Situation Comment: [facility] Other Information That Helps Us Care for You: No other: Current inpatient at the [facility]. Feels Safe at Home: Yes Assistive Devices: None Review of Systems Review of Systems: Unobtainable due to mental health condition Physical Exam Physical Exam: Limited exam due to patient co-operation Constitutional: WD/WN, vitals as above Respiratory: normal respiratory effort, lungs clear to auscultation Cardiovascular: RRR, no murmur, no edema Gastrointestinal (Abdomen): normal bowel sounds, soft, nontender, no hepatosplenomegaly Neurologic: moves all extremities and awake Psychiatric: Orientation: alert; + not oriented x 3 (will not talk to me) Affect: + flat affect Thought Content: + paranoid Insight: + severely impaired insight Genitourinary: no CVA tenderness Results & Data Results & Data ([facility]) Vital Signs (Past 12 Hours) Vital Signs Temp Pulse Pulse Resp BP BP Pulse Ox 11/23/21 16:13 69 18 102/61 99 11/23/21 14:10 73 15 11/23/21 14:00 52 L 18 95 11/23/21 13:52 49 L 18 95 11/23/21 13:40 64 16 94 11/23/21 13:35 114/59 L 11/23/21 11:50 77 23 11/23/21 11:40 68 15 11/23/21 11:30 71 12 11/23/21 11:20 81 21 11/23/21 11:18 98 11/23/21 11:10 82 17 98 11/23/21 11:02 80 22 97 11/23/21 10:38 36.8 C 77 16 134/73 100 O2 Del Method 11/23/21 16:13 Room Air 11/23/21 14:10 11/23/21 14:00 11/23/21 13:52 11/23/21 13:40 11/23/21 13:35 11/23/21 11:50 11/23/21 11:40 11/23/21 11:30 11/23/21 11:20 11/23/21 11:18 Room Air 11/23/21 11:10 11/23/21 11:02 11/23/21 10:38 Room Air Laboratory Results Abnormal lab results 11/23/21 11/23/21 11/23/21 Range/Units 10:52 10:52 15:25 WBC 12.42 H (4.8-10.8) K/ul RBC 3.81 L (3.93-5.22) M/uL MPV 8.9 L (9.4-12.3) fL Neut # (Auto) 9.73 H (1.4-6.5) K/uL Immature Gran # (Auto) 0.06 H (0.00-0.02) K/uL Sodium 129 L 129 L (136-145) mmol/L Chloride 93 L 97 L (98-107) mmol/L Carbon Dioxide 20 L (21-32) mmol/L Anion Gap 14 H 12 H (3-11) BUN 44 H 44 H (6-23) mg/dl Creatinine 2.02 H 1.91 H (0.6-1.2) mg/dl BUN/Creatinine Ratio 21.8 H 23.0 H (10-20) Glucose 165 H 181 H (70-99(Fasting)) mg/dl Total Bilirubin 2.0 H (0.2-1.0) mg/dl AST 12 L (13-39) U/L Diagnostic Findings XR chest 1V portable HISTORY: Altered mental status. weakness COMPARISON: None. FINDINGS: No pneumothorax. No pleural effusions. There are low lung volumes. The heart is top normal in size. There are calcifications within the aortic knob. No focal lung consolidations to suggest pneumonia. No evidence for pulmonary edema. Small linear density lateral base of the left lower lobe favors subsegmental atelectasis are scarring. IMPRESSION: Low lung volumes. Otherwise, no acute process within the chest. CT SCAN OF THE BRAIN WITHOUT IV CONTRAST CLINICAL HISTORY: Change in mental status. COMPARISON STUDY: No priors. TECHNIQUE: Unenhanced axial CT scan of the brain is performed from the vertex to the skull base. A dose lowering technique was utilized adhering to the principles of ALARA. CT DOSE: 537.48 mGy.cm FINDINGS: Brain parenchyma: There is age-related involutional change noting minimal subcortical and periventricular microangiopathic disease. There is no hemorrhage, mass effect, or evidence of acute territorial ischemia by CT criteria. Ramos-white matter differentiation is preserved. No extra-axial fluid collection is seen. Ventricles, sulci, cisterns: Prominent secondary to involutional change. Intracranial vasculature: There is atherosclerotic calcification of the cavernous carotid arteries. Calvarium: Unremarkable. Sinuses and mastoids: The visualized paranasal sinuses are clear. The mastoid air cells are well pneumatized. Orbits: The bony orbits are grossly intact. There is a right ocular lens implant. IMPRESSION: There is no hemorrhage, mass effect, or evidence of acute territorial ischemia by CT criteria. RENAL ULTRASOUND HISTORY: Acute kidney injury. COMPARISON: None. FINDINGS: Right kidney: 11.2 cm. No hydronephrosis. Normal corticomedullary differentiation and cortical thickness. Left kidney: 10.2 cm. No hydronephrosis. Normal corticomedullary differentiation and cortical thickness. Bladder: No bladder wall thickening. Only the right ureteral jet was identified this time. IMPRESSION: 1. Normal kidneys. 2. Normal bladder. Medications Administered ER medications given: Quetiapine 2.5 mg p.o. NSS 500 mL bolus Haloperidol ECG Indication: altered mental status Rate (beats per minute): 80 Rhythm: normal sinus Findings: no acute ischemic change Comparison ECG Date: no prior available Code Status & VTE Plan Code Status Full - default presumed VTE Prophylaxis Plan VTE Prophylaxis will be ordered: No PG Care Time/CCT Total # of Minutes Spent Total Time Spent with Patient: Total time spent is greater than 50% in coordination of care (as documented) at patient's floor/unit and/or counseling patient: Coding Level of Care Code INT OBSERVATION CARE 50M LVL 2 Diagnoses GABI (acute kidney injury) N17.9 Acute dehydration E86.0 Diarrhea R19.7 Hyponatremia E87.1 Groin pain R10.30 Psychosis F29 Hypertension I10
[2021-11-23] MEDS ORDERED: POLYETHYLENE (MIRALAX) 17 GM PACK PO PRN (21:50)
[2021-11-23] MEDS ORDERED: levETIRAcetam 250 MG TAB PO SCH (21:50)
[2021-11-23 22:22] LABS: Appearance Urine Clear (Clear); Bilirubin Urine Negative (Negative); Blood Urine Negative (Negative); Color Urine Yellow; Glucose Urine UA Negative (Negative); Ketones Urine Trace (Negative); Leukocyte Esterase Urine Negative (Negative); Nitrite Urine Negative (Negative); Protein Urine Negative (Negative); Specific Gravity Urine 1.012 (1.000-1.030); Urobilinogen Urine Negative (Negative)
[2021-11-23] MEDS: carvediloL 12.5 MG TAB PO SCH (22:26)
[2021-11-23] MEDS: QUEtiapine FUMARATE 25 MG TABLET PO SCH (22:27)
[2021-11-23] MEDS: ATORVASTATIN 20 MG TAB PO SCH (22:31)
[2021-11-24] MEDS: SODIUM CHLORIDE 0.9% 1000ML 1,000 ML IV SCH ×3 (04:42→20:21)
[2021-11-24 08:58] LABS: Basophils # (auto) 0.04 K/uL (0-0.2); Basophils % (auto) 0.3 %; Eosinophils # (auto) 0.09 K/uL (0-0.50); Eosinophils % (auto) 0.7 %; Hematocrit (blood only) 31.7 % (34.1-44.9); Hemoglobin 11.1 g/dl (12.0-16.0); Immature Granulocytes # (auto) 0.04 K/uL (0.00-0.02); Immature Granulocytes % (auto) 0.3 %; Lymphocytes # (auto) 1.73 K/uL (1.2-3.4); Lymphocytes % (auto) 13.4 %; Mean Corpuscular Volume 91.4 fL (80.0-100.0); Mean Platelet Volume 8.8 fL (9.4-12.3); Monocytes # (auto) 1.08 K/uL (0.24-0.82); Monocytes % (auto) 8.4 %; Neutrophils # (auto) 9.95 K/uL (1.4-6.5); Neutrophils % (auto) 76.9 %; Platelet Count 330 K/uL (130-400); RDW Standard Deviation 40.1 fL (36.4-46.3); Red Blood Count 3.47 M/uL (3.93-5.22); White Blood Count 12.93 K/ul (4.8-10.8)
[2021-11-24] MEDS ORDERED: VENLAFAXINE HCL XR 75 MG CAPXR PO SCH (09:00)
[2021-11-24 09:10] LABS: Albumin Globulin Ratio 1.5 (0.9-2); BUN Creatinine Ratio 21.3 (10-20); Bilirubin,Total 1.4 mg/dl (0.2-1.0); Calcium 8.7 mg/dl (8.5-10.1); Creatinine Clr Calc Pharmacy 39.3 ml/min; Est GFR (African American) 43.9 ml/min; Est GFR (Non-African American) 37.9 ml/min; Globulin 2.6 gm/dl (2.5-4.0); Potassium 4.3 mmol/L (3.5-5.1); Total Protein 6.6 gm/dl (6.0-8.3)
[2021-11-24] MEDS ORDERED: HALOPERIDOL LACTATE 5 MG/ML 1 ML VIAL IM PRN (09:15)
[2021-11-24] MEDS: QUEtiapine FUMARATE 25 MG TABLET PO PRN (09:34)
[2021-11-24] MEDS: ACETAMINOPHEN 325 MG TAB PO PRN (09:35)
--- NOTE | 2021-11-24 11:36 | Psychiatric Consultation ---
Date of Consultation November 24, 2021 Impression / Recommendations Impression 71 yo admitted medically as transfer from [facility] due to concern for worsening mental status changes with significant hyponatremia and GABI. Diagnostically consistent with delirium likely from hyponatremia superimposed on worsening recent confusion and paranoia. Unclear if these behavioral and psychiatric symptoms are new or if she has a history of elvie or schizophrenia or any substance use or dementia with behavioral disturbance. Lack of orientation is a significant change from admission at [facility] a few days ago. Suspect hyponatremia may be due to recent additions of psychiatric medications at [facility] including Effexor and addition vs changes in seroquel vs lack of po intake due to paranoia. No evidence for catatonia. She was started on donepezil and Keppra at [facility] for suspected dementia and for mood symptoms/agitation as well. (1) Delirium: (2) Psychosis: (3) Acute dehydration: (4) Hyponatremia: (5) Acute kidney injury: Plan -Decrease Effexor XR to 37.5 mg qd and then stop after 1 -2 days -Stop Keppra given no known history of epilepsy (psych liason confirmed no hx with [facility] medical provider) and risk of worsening agitation/disinhibition -Continue with seroquel 50mg qhs and 12.5mg q4h prn, continue to monitor Na+ encouragingly it has been improving slowly -Hold donepezil for now given unclear hx regarding cognitive impairment and limiting polypharmacy in context of delirium -Get records from [facility] to confirm prior to admission and med changes while admitted there -Psych liason to get further collateral, especially past psych hx and symptom progression prior to [facility], from patient's -Patient does not have decision making capacity regarding disposition, cannot leave AMA Psych History Identifying Data 71 yo woman with history of possible dementia and possible BPAD [facility] status and GABI. Psychiatry consulted for medication recommendations. Chief Complaint "lino, lino, lino, lino, lino". History of Present Illness Kenya presents in bed, malodorous and unable to engage with meaningful interview. She is oriented to person and knows she is in a hospital but thinks she is still at [facility], doesn't know city, month, year and responds bizarrely at times to these questions and out of context. She states she lives in [place] then changes her response to [facility] (per chart review she lives in [facility] [place]). Recalls that she has a but states his name is Julio (per chart review and RN discussion this is not her 's name). She then became perseverative on this topic stating repeatedly "hubby, hubby, hubby, hubby". Per discussion with RN she threw her breakfast food this morning and pulled out her IV lines. Made bizarre statements in the ED related to paranoia and expressing concerns regarding delusions of control. Per ED documentation she has not been eating or drinking well due to paranoia likely leading to her worsening altered mental status and GABI. Per review of chart documentation from [facility] she was fully oriented when admitted there on 11/18/21 but would not cooperate with admission interview until 11/19/21. They noted reason for admission was due to "confusion and psychosis". While at the [facility] her prior to admission sertraline was discontinued and she was started on Effexor XR which was titrated to 75mg qd. She was also on seroquel 75mg qhs and donepezil and Keppra were added for possible cognitive impairment/dementia. Past Psychiatric History Previous Psych History: unable to assess Allergies Allergy/AdvReac Type Severity Reaction Status Date / Time ciprofloxacin Allergy Intermediate itching Unverified 11/23/21 10:55 Home Medications Medication Instructions Recorded Confirmed Type acetaminophen 325 mg tablet 650 mg PO Q4H PRN Pain 11/23/21 11/23/21 History amlodipine 5 mg tablet 10 mg PO QAM 11/23/21 11/23/21 History atorvastatin 20 mg tablet 20 mg PO HS 11/23/21 11/23/21 History carvedilol 3.125 mg tablet 12.5 mg PO BIDM 11/23/21 11/23/21 History donepezil 5 mg tablet 5 mg PO HS 11/23/21 11/23/21 History hydrochlorothiazide 25 mg tablet 25 mg PO QAM 11/23/21 11/23/21 History levetiracetam 250 mg tablet 250 mg PO HS 11/23/21 11/23/21 History lisinopril 20 mg tablet 40 mg PO QAM 11/23/21 11/23/21 History metformin 500 mg tablet 1,000 mg PO BID 11/23/21 11/23/21 History potassium chloride 10 mEq 10 meq PO BID 11/23/21 11/23/21 History capsule,extended release quetiapine 25 mg tablet 12.5 mg PO Q4H PRN Agitation 11/23/21 11/23/21 History quetiapine 50 mg tablet 50 mg PO HS 11/23/21 11/23/21 History sitagliptin 50 mg tablet (Januvia) 50 mg PO BID 11/23/21 11/23/21 History venlafaxine 37.5 mg 37.5 mg PO DAILY@1300 11/23/21 11/23/21 History capsule,extended release 24 hr venlafaxine 75 mg tablet,extended 75 mg PO QAM 11/23/21 11/23/21 History release 24 hr Family History unknown Substance Abuse History unknown, per [facility] intake patient reported "I do and I don't" when asked about alcohol use. Personal History Living Arrangements: Home (with her ) Beliefs That Will Affect Care: None Patient History Medical History Acute dehydration Acute kidney injury Diabetes Hypertension Hyponatremia Psychosis Social History Smoking Status: Unknown if ever smoked Hx Substance Use: Yes (unknown) Preferred Language: Vincentian Communication Ability: Impaired Drupal Programmer Required: No Beliefs That Will Affect Care: None Current Living Situation: Other Current Living Situation Comment: [facility] Other Information That Helps Us Care for You: No other: Current inpatient at the [facility]. Feels Safe at Home: Yes Assistive Devices: None Physical Exam Psychiatric: Orientation: alert and oriented to person; + not oriented to place and + not oriented to time Apperance: + disheveled Eye Contact: + poor eye contact Motor Behavior: no abnormal motor movements Speech: + abnormal rate/rhythm/volume of speech (brief, loud) Affect: + labile affect Mood: + irritable mood Thought Process: + looseness of associations and + perseveration Thought Content: + paranoid, + delusions and + thought broadcasting Suicidal Thoughts: denies suicidal thoughts Homicidal Thoughts: denies homicidal thoughts Hallucinations: no auditory hallucinations (but possible responding to internal stimuli) and no visual hallucinations Cognition: language grossly intact; + recent memory not intact, + remote memory not intact and + attention not intact Insight: + severely impaired insight Judgement: + severely impaired judgement Vital Signs (Past 24 Hours): Last Vital Signs Temp 37 C 11/24/21 07:30 Pulse 74 11/24/21 07:30 Resp 18 11/24/21 07:30 BP 134/75 11/24/21 07:30 Pulse Ox 96 11/24/21 07:30 O2 Del Method 11/24/21 07:30 Review of Systems Unobtainable due to mental health condition Results & Data (PSY) Medications Administered Acetaminophen (Acetaminophen 325 Mg Tab) 650 mg PO Q4H PRN PRN Reason: pain/fever Stop: 12/23/21 21:49 Last Admin: 11/24/21 09:35 Dose: 650 mg Documented By: YOANDY Atorvastatin Calcium (Atorvastatin 20 Mg Tab) 20 mg PO [facility] Stop: 12/23/21 21:49 Last Admin: 11/23/21 22:31 Dose: Not Given Documented By: BOY Carvedilol (Carvedilol 12.5 Mg Tab) 12.5 mg PO BIDM DESIRAE Stop: 12/23/21 21:49 Last Admin: 11/23/21 22:26 Dose: 12.5 mg Documented By: BOY Sodium Chloride (Nss 1000ml) 1,000 mls @ 150 mls/hr IV .Q6H40M DESIRAE Stop: 12/23/21 12:44 Last Admin: 11/24/21 04:42 Dose: 150 mls/hr Documented By: Infusion: 11/24/21 04:39 Dose: 150 mls/hr Documented By: Admin: 11/23/21 21:58 Dose: 150 mls/hr Documented By: Infusion: 11/23/21 17:17 Dose: 0 mls/hr Documented By: Admin: 11/23/21 13:36 Dose: 150 mls/hr Documented By: Levetiracetam (Levetiracetam 250 Mg Tab) 250 mg PO HS DESIRAE Stop: 12/23/21 21:49 Last Admin: 11/23/21 22:27 Dose: 250 mg Documented By: BOY Quetiapine Fumarate (Quetiapine Fumarate 25 Mg Tablet) 12.5 mg PO Q4H PRN PRN Reason: Agitation Stop: 12/23/21 21:49 Last Admin: 11/24/21 09:34 Dose: 12.5 mg Documented By: YOANDY Quetiapine Fumarate (Quetiapine Fumarate 25 Mg Tablet) 50 mg PO HS DESIRAE Stop: 12/23/21 21:49 Last Admin: 11/23/21 22:27 Dose: 50 mg Documented By: BOY Coding Level of Care Code 48633 Inpt Consult Level 3 Diagnoses Delirium R41.0 Psychosis F29 Acute dehydration E86.0 Hyponatremia E87.1 Acute kidney injury N17.9
[2021-11-24] MEDS ORDERED: OLANZapine 10 MG/2.1 ML SDV IM PRN (12:35)
[2021-11-24] MEDS: amLODIPine BESYLATE 5 MG TAB PO SCH (12:54)
[2021-11-24] MEDS: carvediloL 12.5 MG TAB PO SCH ×2 (12:54→20:24)
[2021-11-24] MEDS ORDERED: VENLAFAXINE HCL XR 37.5 MG CAPXR PO SCH (13:00)
--- NOTE | 2021-11-24 15:26 | Hospitalist Progress Note ---
Date of Service November 24, 2021 Assessment & Plan (1) GABI (acute kidney injury): Plan: Secondary to likely poor p.o. intake and side effect of psychiatric medications causing delirium which led to the poor p.o. intake. She is also on lisinopril and HCTZ at home both of which have been held down to 1.4 from 2.2 on admission Metabolic acidosis is now improved, and hyponatremia also improved to 132, BUN down to 30 from 44 Urinalysis shows ketones consistent with dehydration -Continue LR @ 150 ml/hr once IVs replaced Repeat BMP in AM (2) Acute dehydration: Plan: IV fluids as above (3) Diarrhea: Plan: Stool PCR is able and diarrhea continues. Possibly contributing towards dehydration She has not had any diarrhea since admission (4) Hyponatremia: Plan: Suspect due to poor intake and HCTZ use. IV fluids as above Improving today up to 132 Follow BMP (5) Groin pain: Plan: Complained of bilateral groin pain to RN. Now appears comfortable and is resting Urinalysis with ketones only (6) Psychosis: Plan: Seems more consistent with acute metabolic encephalopathy as well as possible toxic encephalopathy from recent medication changes at psychiatric inpatient unit Discussed with psychiatry-will taper off Effexor, not give any benzodiazepines, and stop Keppra Titrate up on Seroquel new Seroquel as needed, IM Zyprexa as needed severe agitation Continue to correct acute kidney injury and hyponatremia -Supportive care with one-on-one sitter as well -Not allowed to leave AMA (7) Hypertension: Plan: Blood pressures controlled Continue amlodipine and carvedilol. Stop lisinopril and HCTZ as above (8) Hyperbilirubinemia: Plan: Total bilirubin 2.0 on admission but rest of LFTs are normal No upper abdominal pain noted on admission Total bilirubin now down to 1.4 Could be Gilbert's in the setting of dehydration Follow LFTs in the morning Plan VTE Prophylaxis - low risk and increased risk of delusions/delirium therefore deferred Diet - regular Disposition-continued stay on medical/surgical unit, eventually back to the [facility] psychiatric unit when encephalopathy and acute kidney injury resolved Admission and Anticipated Discharge Date Admission Date: November 23, 2021 Subjective Patient would not wake up for me but did move her arms in response to my touch. Nursing reports that she did wake up earlier and pulled out her IV and threw some things this morning. She was later in the day then agreeable to replacement of IV to start IV fluids again. She did not eat or drink much throughout the day. I discussed her case with psychiatry, the catalytic case operator, as well as Queta from the [facility] at [phone]. I also discussed her case with her , Pedro at [phone], on the phone. He reports that at home she typically is independent and drives, walks with a cane, and is not agitated or delusional or manic. She has never had a history of seizures. The [facility] psychiatrist put her on Keppra, clonazepam, and Effexor shortly before she became severely agitated and dehydrated. Review of Systems Review of Systems: Unobtainable due to cognitive status Physical Exam Constitutional: WD/WN, vitals as above Neck: trachea midline, no thyromegaly Respiratory: normal respiratory effort, lungs clear to auscultation Cardiovascular: RRR, no murmur, no edema Gastrointestinal (Abdomen): normal bowel sounds, soft, nontender, no hepatosplenomegaly Musculoskeletal: Extremities: extremities normal to inspection; no cyanosis and no clubbing Skin: no rashes, warm and dry Neurologic: + not awake Results & Data Results & Data ([facility]) Vital Signs (Past 12 Hours) Vital Signs Temp Pulse Pulse Resp BP BP Pulse Ox 11/24/21 15:15 37 C 63 18 115/68 92 11/24/21 07:30 37 C 74 18 134/75 96 O2 Del Method 11/24/21 15:15 Room Air 11/24/21 07:30 Room Air Laboratory Results 11/24/21 11/24/21 11/23/21 Range/Units 08:24 08:24 21:30 WBC 12.93 H (4.8-10.8) K/ul RBC 3.47 L (3.93-5.22) M/uL Hgb 11.1 L (12.0-16.0) g/dl Hct 31.7 L (34.1-44.9) % MCV 91.4 (80.0-100.0) fL MCH 32.0 (25.0-34.0) pg MCHC 35.0 (32.0-36.0) g/dL RDW Std Deviation 40.1 (36.4-46.3) fL RDW Coeff of Farida 12.0 (11.5-14.5) % Plt Count 330 (130-400) K/uL MPV 8.8 L (9.4-12.3) fL Immature Gran % (Auto) 0.3 % Neut % (Auto) 76.9 % Lymph % (Auto) 13.4 % [place] % (Auto) 8.4 % Eos % (Auto) 0.7 % Baso % (Auto) 0.3 % Neut # (Auto) 9.95 H (1.4-6.5) K/uL Lymph # (Auto) 1.73 (1.2-3.4) K/uL [place] # (Auto) 1.08 H (0.24-0.82) K/uL Eos # (Auto) 0.09 (0-0.50) K/uL Baso # (Auto) 0.04 (0-0.2) K/uL Immature Gran # (Auto) 0.04 H (0.00-0.02) K/uL Sodium 132 L (136-145) mmol/L Potassium 4.3 (3.5-5.1) mmol/L Chloride 101 (98-107) mmol/L Carbon Dioxide 21 (21-32) mmol/L Anion Gap 10 (3-11) BUN 30 H (6-23) mg/dl Creatinine 1.41 H D (0.6-1.2) mg/dl Est Cr Clr Drug Dosing 39.3 ml/min Est GFR ( Amer) 43.9 ml/min Est GFR (Non-Af Amer) 37.9 ml/min BUN/Creatinine Ratio 21.3 H (10-20) Glucose 149 H (70-99(Fasting)) mg/dl Calcium 8.7 (8.5-10.1) mg/dl Total Bilirubin 1.4 H (0.2-1.0) mg/dl AST 12 L (13-39) U/L ALT 11 (7-52) U/L Alkaline Phosphatase 58 (34-104) U/L Total Protein 6.6 (6.0-8.3) gm/dl Albumin 4.0 (3.4-5.0) gm/dl Globulin 2.6 (2.5-4.0) gm/dl Albumin/Globulin Ratio 1.5 (0.9-2) Urine Color Yellow Urine Appearance Clear (Clear) Urine pH 5.0 (4.5-7.5) Ur Specific [place] 1.012 (1.000-1.030) Urine Protein Negative (Negative) Urine Glucose (UA) Negative (Negative) Urine Ketones Trace H (Negative) Urine Blood Negative (Negative) Urine Nitrite Negative (Negative) Urine Bilirubin Negative (Negative) Urine Urobilinogen Negative (Negative) Ur Leukocyte Esterase Negative (Negative) PG Care Time/CCT Total # of Minutes Spent Total Time Spent with Patient: Total time spent is greater than 50% in coordination of care (as documented) at patient's floor/unit and/or counseling patient: Coding Level of Care Code 53426 Subseq Hosp Care Lvl 3 Diagnoses GABI (acute kidney injury) N17.9 Acute dehydration E86.0 Diarrhea R19.7 Hyponatremia E87.1 Groin pain R10.30 Psychosis F29 Hypertension I10 Hyperbilirubinemia E80.6
[2021-11-24] MEDS: ATORVASTATIN 20 MG TAB PO SCH (20:24)
[2021-11-24] MEDS: QUEtiapine FUMARATE 25 MG TABLET PO SCH (20:25)
[2021-11-25] MEDS: SODIUM CHLORIDE 0.9% 1000ML 1,000 ML IV SCH ×3 (00:26→23:46)
[2021-11-25 06:53] LABS: Basophils # (auto) 0.05 K/uL (0-0.2); Basophils % (auto) 0.4 %; Eosinophils # (auto) 0.09 K/uL (0-0.50); Eosinophils % (auto) 0.7 %; Hematocrit (blood only) 34.6 % (34.1-44.9); Immature Granulocytes # (auto) 0.04 K/uL (0.00-0.02); Immature Granulocytes % (auto) 0.3 %; Lymphocytes # (auto) 2.11 K/uL (1.2-3.4); Lymphocytes % (auto) 16.2 %; Mean Corpuscular Hemoglobin 31.7 pg (25.0-34.0); Mean Corpuscular Hgb Conc 34.7 g/dL (32.0-36.0); Mean Corpuscular Volume 91.5 fL (80.0-100.0); Mean Platelet Volume 8.5 fL (9.4-12.3); Monocytes # (auto) 1.13 K/uL (0.24-0.82); Monocytes % (auto) 8.7 %; Neutrophils # (auto) 9.63 K/uL (1.4-6.5); Neutrophils % (auto) 73.7 %; Platelet Count 345 K/uL (130-400); RDW Coefficient of Variation 11.9 % (11.5-14.5); RDW Standard Deviation 39.8 fL (36.4-46.3); Red Blood Count 3.78 M/uL (3.93-5.22); White Blood Count 13.05 K/ul (4.8-10.8)
[2021-11-25 07:27] LABS: Albumin Globulin Ratio 1.5 (0.9-2); BUN Creatinine Ratio 17.3 (10-20); Bilirubin,Total 1.2 mg/dl (0.2-1.0); Calcium 8.9 mg/dl (8.5-10.1); Creatinine Clr Calc Pharmacy 50.4 ml/min; Est GFR (African American) 59.3 ml/min; Est GFR (Non-African American) 51.2 ml/min; Globulin 2.7 gm/dl (2.5-4.0); Total Protein 6.7 gm/dl (6.0-8.3)
--- NOTE | 2021-11-25 07:35 | Hospitalist Progress Note ---
Date of Service November 25, 2021 Assessment & Plan (1) Acute encephalopathy: Plan: Seems more consistent with acute metabolic encephalopathy as well as possible toxic encephalopathy from recent medication changes at psychiatric inpatient unit Discussed with psychiatry-will taper off Effexor, not give any benzodiazepines, and have stopped Keppra Seroquel also seems to be causing possible akathisia Symptoms ongoing despite resolution of GABI and improvement in sodium to close to normal -Supportive care with one-on-one sitter as well -Not allowed to leave AMA -decreasing Seroquel dosing now -check brain MRI when able to lie still -consider Neuro consult on Saturday if not improving with time off offending medications -continue to correct hyponatremia (2) GABI (acute kidney injury): Plan: Secondary to likely poor p.o. intake and side effect of psychiatric medications causing delirium which led to the poor p.o. intake. She is also on lisinopril and HCTZ at home both of which have been held Treated with IVFs x 2 days intermittently between patient pulling ot IVs Research Epidemiologist now down to 1.1 from 2.2 on admission Metabolic acidosis is now improved, and hyponatremia also improved to 134 (from 129 on admit), BUN down to 19 from 44 Urinalysis shows ketones consistent with dehydration dc IVFs, encourage po intake Repeat BMP in AM (3) Acute dehydration: Plan: resolved as above (4) Fall: Plan: with mechanical fall-tripped while trying to run out the door, fell onto face and arm xrays of right wrist and CT head noncon negative Neuro exam similar to previous observe for worsening issues continue 1:1 sitter (5) Diarrhea: Plan: reported on admission but she has not had a BM since admission, she thinks she is constipated start senna/docusate, Miralax (6) Hyponatremia: Plan: Suspect due to poor intake and HCTZ use Improving today up to 134 Follow BMP (7) Groin pain: Plan: Complained of bilateral groin pain to RN. Now appears comfortable, no abnormalities on exam Urinalysis with ketones only (8) Hypertension: Plan: Blood pressures controlled Continue amlodipine and carvedilol. Stop lisinopril and HCTZ as above (9) Hyperbilirubinemia: Plan: Total bilirubin 2.0 on admission but rest of LFTs are normal No upper abdominal pain noted on admission Total bilirubin now down to 1.2 Could be Gilbert's in the setting of dehydration Follow LFTs in the morning (10) Leukocytosis: Plan: WBC count persistently mildly elevated at 12-13 each day, afebrile, no evidence of infection anywhere suspect stress induced continue to follow clinically follow CBC in AM Plan VTE Prophylaxis - low risk and increased risk of delusions/delirium therefore deferred Diet - regular Disposition-continued stay on medical/surgical unit, eventually back to the [facility] psychiatric unit when encephalopathy and acute kidney injury resolved Admission and Anticipated Discharge Date Admission Date: November 23, 2021 Subjective Pt seen on two occasions today. Initially seen early in AM after she was agitated and pulled the CODE BLUE alarm unintentionally. At that point she was back in bed but agitated, trying to rip out her IV. She was repeatedly saying "I have lost the ability...to forgive and forget." She did have some clearer moments throughout the conversation, but then at times seems easily distracted. She did say that she has pain in her legs but couldn't ell me exactly where. No BM since admission. In the afternoon, I came to see her again after I was notified she jumped up out of her bed and tried to escape out of the room as dietary was leaving the room and she tripped over her feet and fell forward, landing on her head and forearm. When I saw her, she was awake and alert, able to tell me her forehead was hurting and her right wrist was hurting but nowhere else. She had an abrasion on her left knee. RN reports that since being given the prn Seroquel this AM, she has become more energetic, wandering around the room constantly, trying to organize things, talking a lot more. Discussed with Psychiatry about this and decision made to decrease dose of Ser oquel. Review of Systems Review of Systems: Unobtainable due to cognitive status Physical Exam Constitutional: WD/WN, vitals as above Eyes: PERRL, conjunctivae normal, anicteric sclerae EOM intact bilaterally; no anisocoria and no nystagmus ENMT: external ear and nose normal, oropharynx normal no ttp over forehead, no hematoma Neck: trachea midline, no thyromegaly Respiratory: normal respiratory effort, lungs clear to auscultation Cardiovascular: RRR, no murmur, no edema Gastrointestinal (Abdomen): normal bowel sounds, soft, nontender, no hepatosplenomegaly Musculoskeletal: Extremities: + extremities abnormal to inspection (mild edema right wrist), no cyanosis and no clubbing +mild TTP over dorsal right wrist, FROM of wrist No other TTP over all joints, with FROM throughout Skin: no rashes, warm and dry Trauma: + abrasion (left knee, right knee scab) Neurologic: PERRL, EOMI, accommodation nl, no face palsy, no dysarthria CN's II-XI intact bilaterally, moves all extremities, awake and + confused; no focal motor deficits Psychiatric: Orientation: alert, cooperative (intermittently) and + guarded Apperance: + disheveled Eye Contact: + fair eye contact Motor Behavior: + psychomotor agitation Speech: normal rate/rhythm/volume of speech Affect: + flat affect Mood: + anxious mood Thought Process: + looseness of associations, + perseveration and + confabulations Insight: + impaired ins ight Judgement: + impaired judgement Results & Data Results & Data ([facility]) Vital Signs (Past 12 Hours) Vital Signs Temp Pulse Resp BP Pulse Ox O2 Del Method 11/24/21 20:40 Room Air 11/24/21 20:15 37.2 C 72 20 126/70 92 Room Air Laboratory Results 11/25/21 11/25/21 Range/Units 06:39 06:39 WBC 13.05 H (4.8-10.8) K/ul RBC 3.78 L (3.93-5.22) M/uL Hgb 12.0 (12.0-16.0) g/dl Hct 34.6 (34.1-44.9) % MCV 91.5 (80.0-100.0) fL MCH 31.7 (25.0-34.0) pg MCHC 34.7 (32.0-36.0) g/dL RDW Std Deviation 39.8 (36.4-46.3) fL RDW Coeff of Farida 11.9 (11.5-14.5) % Plt Count 345 (130-400) K/uL MPV 8.5 L (9.4-12.3) fL Immature Gran % (Auto) 0.3 % Neut % (Auto) 73.7 % Lymph % (Auto) 16.2 % [place] % (Auto) 8.7 % Eos % (Auto) 0.7 % Baso % (Auto) 0.4 % Neut # (Auto) 9.63 H (1.4-6.5) K/uL Lymph # (Auto) 2.11 (1.2-3.4) K/uL [place] # (Auto) 1.13 H (0.24-0.82) K/uL Eos # (Auto) 0.09 (0-0.50) K/uL Baso # (Auto) 0.05 (0-0.2) K/uL Immature Gran # (Auto) 0.04 H (0.00-0.02) K/uL Sodium 134 L (136-145) mmol/L Potassium 4.0 (3.5-5.1) mmol/L Chloride 103 (98-107) mmol/L Carbon Dioxide 22 (21-32) mmol/L Anion Gap 9 (3-11) BUN 19 (6-23) mg/dl Creatinine 1.10 D (0.6-1.2) mg/dl Est Cr Clr Drug Dosing 50.4 ml/min Est GFR ( Amer) 59.3 ml/min Est GFR (Non-Af Amer) 51.2 ml/min BUN/Creatinine Ratio 17.3 (10-20) Glucose 178 H (70-99(Fasting)) mg/dl Calcium 8.9 (8.5-10.1) mg/dl Total Bilirubin 1.2 H (0.2-1.0) mg/dl AST 11 L (13-39) U/L ALT 11 (7-52) U/L Alkaline Phosphatase 59 (34-104) U/L Total Protein 6.7 (6.0-8.3) gm/dl Albumin 4.0 (3.4-5.0) gm/dl Globulin 2.7 (2.5-4.0) gm/dl Albumin/Globulin Ratio 1.5 (0.9-2) Diagnostic Findings Head CT 11/25/21 13:[address] DOSE: 1459.56 mGycm HISTORY: Confusion. fall, headache TECHNIQUE: Multiaxial CT images of the head were performed without the use of intravenous contrast. Automated exposure control was utilized for this study. A dose lowering technique was utilized adhering to the principles of ALARA. Comparison: Head CT 11/23/2021. Findings: The paranasal sinuses and mastoid air cells are clear. The calvarium and skull base are intact. The ventricles and sulci are within normal limits. There is no mass, hematoma, midline shift, or acute infarct. Impression: No acute intracranial abnormality. ACT 112: Negative or not required by law. Electronically signed by: Moris Ann M.D. 11/25/2021 2:37 PM Wrist X-Ray 11/25/21 13:53 XR wrist RT min 3V routine CLINICAL HISTORY: fall, right wrist pain COMPARISON STUDY: None. FINDINGS: Soft tissue swelling within the right wrist. No fracture or dislocation. 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 There is also mild osteoarthritis at the radiocarpal joint. IMPRESSION: Soft tissue swelling within the right wrist. No acute fractures. ACT 112: Negative or not required by law. Electronically signed by: Moris Ann M.D. 11/25/2021 2:50 PM PG Care Time/CCT Total # of Minutes Spent Total Time Spent with Patient: Total time spent is greater than 50% in coordination of care (as documented) at patient's floor/unit and/or counseling patient: Coding Level of Care Code 95222 Subseq Hosp Care Lvl 3 Diagnoses Acute encephalopathy G93.40 GABI (acute kidney injury) N17.9 Acute dehydration E86.0 Fall W19.XXXA Diarrhea R19.7 Hyponatremia E87.1 Groin pain R10.30 Hypertension I10 Hyperbilirubinemia E80.6 Leukocytosis D72.829
[2021-11-25] MEDS: DOCUSATE SODIUM/SENNA 50/8.6MG TAB PO SCH ×2 (08:53→09:11)
[2021-11-25] MEDS: amLODIPine BESYLATE 5 MG TAB PO SCH (08:55)
[2021-11-25] MEDS: carvediloL 12.5 MG TAB PO SCH ×2 (08:55→16:59)
[2021-11-25] MEDS ORDERED: POLYETHYLENE (MIRALAX) 17 GM PACK PO SCH (09:00)
[2021-11-25] MEDS ORDERED: VENLAFAXINE HCL XR 37.5 MG CAPXR PO SCH (09:00)
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
[2021-11-25] MEDS: QUEtiapine FUMARATE 25 MG TABLET PO PRN (11:06)
[2021-11-25] MEDS ORDERED: ETOMIDATE 2 MG/ML 20 ML VIAL IV ONE ×2 (12:07→21:28)
[2021-11-25] MEDS ORDERED: SUCCINYLCHOLINE CHLORIDE 20 MG/ML 10 ML VIAL IV ONE (12:07)
--- NOTE | 2021-11-25 14:39 | CT Scan Report ---
HEAD CT NONCONTRAST CT DOSE: 1459.56 mGycm HISTORY: Confusion. fall, headache TECHNIQUE: Multiaxial CT images of the head were performed without the use of intravenous contrast. A utomated exposure control was utilized for this study. A dose lowering technique was utilized adheri ng to the principles of ALARA. Comparison: Head CT 11/23/2021. Findings: The paranasal sinuses and mastoid air cells are clear. The calvarium and skull base are int act. The ventricles and sulci are within normal limits. There is no mass, hematoma, midline shift, or acute infarct. Impression: No acute intracranial abnormality. ACT 112: Negative or not required by law. Electronically signed by: Moris Ann M.D. 11/25/2021 2:37 PM
--- NOTE | 2021-11-25 14:51 | XRay Report ---
XR wrist RT min 3V routine CLINICAL HISTORY: fall, right wrist pain COMPARISON STUDY: None. FINDINGS: Soft tissue swelling within the right wrist. No fracture or dislocation. 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 There is also mild osteoarthritis at the radiocarpal joint. IMPRESSION: Soft tissue swelling within the right wrist. No acute fractures. ACT 112: Negative or not required by law. Electronically signed by: Moris Ann M.D. 11/25/2021 2:50 PM
[2021-11-25] MEDS: ATORVASTATIN 20 MG TAB PO SCH (20:07)
[2021-11-25] MEDS ORDERED: QUEtiapine FUMARATE 25 MG TABLET PO SCH (21:00)
[2021-11-25] MEDS ORDERED: SUCCINYLCHOLINE CHLORIDE 20 MG/ML 10 ML VIAL IV STA (21:28)
[2021-11-25] MEDS ORDERED: RAPID SEQUENCE INDUCTION BAG ONE (21:28)
[2021-11-25] MEDS ORDERED: PROPOFOL IV EMULSION 10 MG/ML 100 ML VIAL IV ONE (21:43)
[2021-11-25] MEDS ORDERED: LORazepam 1 MG TAB PO PRN (21:49)
[2021-11-25] MEDS ORDERED: MIDAZOLAM BOLUS FROM BAG IV PRN (22:07)
[2021-11-25] MEDS ORDERED: levETIRAcetam 500 MG in 0.9 % SODIUM CHLORIDE 100 ML IV ONE (22:10)
[2021-11-25] MEDS ORDERED: fentaNYL citrate 2,500 MCG/250 ML BAG IV ONE (22:10)
[2021-11-25] MEDS ORDERED: MIDAZOLAM HCL 125MG/250ML D5W ONE (22:11)
[2021-11-25 22:12] LABS: Hematocrit (blood only) 35.4 % (34.1-44.9); Hemoglobin 11.6 g/dl (12.0-16.0); Mean Corpuscular Hemoglobin 31.7 pg (25.0-34.0); Mean Corpuscular Hgb Conc 32.8 g/dL (32.0-36.0); Mean Corpuscular Volume 96.7 fL (80.0-100.0); Mean Platelet Volume 8.9 fL (9.4-12.3); Platelet Count 342 K/uL (130-400); RDW Coefficient of Variation 11.9 % (11.5-14.5); RDW Standard Deviation 42.4 fL (36.4-46.3); Red Blood Count 3.66 M/uL (3.93-5.22); White Blood Count 22.16 K/ul (4.8-10.8)
[2021-11-25] MEDS ORDERED: MIDAZOLAM HCL 125 MG/250 ML BAG IV SCH (22:15)
[2021-11-25] MEDS ORDERED: fentaNYL citrate 2,500 MCG/250 ML BAG IV SCH (22:15)
[2021-11-25 22:17] LABS: Albumin Globulin Ratio 1.7 (0.9-2); Albumin Level 4.2 gm/dl (3.4-5.0); BUN Creatinine Ratio 14.7 (10-20); Bilirubin,Total 1.2 mg/dl (0.2-1.0); Calcium 9.3 mg/dl (8.5-10.1); Creatinine Clr Calc Pharmacy 42.9 ml/min; Est GFR (African American) 48.9 ml/min; Est GFR (Non-African American) 42.2 ml/min; Globulin 2.5 gm/dl (2.5-4.0); Total Protein 6.7 gm/dl (6.0-8.3)
--- NOTE | 2021-11-25 22:34 | Emergency Department Note ---
ED Visit Note CODE BLUE/RSI/intubation note A CODE BLUE was called and I responded. When I arrived the patient was being bagged by Asael from the ICU. The history was the patient collapsed and became unresponsive. There was questionable seizure initially. She has not had any recent benzos or narcotics. She does have a pulse but is completely unresponsive. She was unresponsive and clamped down but with bagging was 100%. We felt she needed airway protection she was unresponsive we did review her labs earlier today and she had normal potassium of 4 and normal renal function. Based on this we chose to give her etomidate 25 mg IV and succinylcholine 100 mg IV. Asael did then intubate her and used a glide scope and a 7.0 ET tube, I observe it as well and it passed on the first attempt and it went through the cords I listened and there was equal breath sounds bilaterally no breath sounds over the stomach follow-up chest x-ray shows the endotracheal tube a few centimeters above the regino. The patient has pulses and stable hemodynamics at this point and will be transferred to the ICU for further inpatient treatment evaluation. .
[2021-11-25 22:35] LABS: Magnesium 1.8 mg/dl (1.7-2.4); Phosphorus 3.7 mg/dl (2.5-4.9)
--- NOTE | 2021-11-25 23:13 | Critical Care Consultation ---
Date of Consultation November 25, 2021 Assessment & Plan (1) Cardiac arrest: Reason Critically Ill: 71-year-old female with questionable seizure-like activity followed by cardiac arrest presents to the ICU following CODE BLUE with successful ROSC, now mechanically ventilated. Neuro - Sedation: Fentanyl/Versed drips Psychosis/encephalopathypatient's encephalopathy was reported to be improving and was thought to be related to GABI/hyponatremia which have both improved. -Ammonia was unremarkable, BUN 19 -Effexor was being weaned and Seroquel increased -We will hold Seroquel and Zyprexa for the time being -Psychiatry following. Follow recommendations Seizure?Unsure of etiology at this time. Patient had witnessed seizure-like activity prior to cardiac arrest which likely contributed. -No confirmed history of seizures the patient was on Keppra -Keppra recently stopped. We will restart -CT head negative for acute intracranial findings -MRI and EEG pending -Consult neurology -Currently sedated with fentanyl and Versed drips. No further seizure like activity seen on exam and patient recently had to be restrained due to reaching for medical equipment. We will continue to monitor closely Cardiac - Cardiac arrestpatient thought to be in PEA rhythm which converted with CPR only to sinus rhythm. Unclear etiology at this time but thought to be respiratory arrest related to seizure activity? -EKG sinus rhythm without ST elevation. QTc within normal limits -Troponin pending -Hold hypertensive medications for the time being -Echo pending -Currently hemodynamically stable without need for vasopressors and sinus rhythm on monitor -Continuous monitor on telemetry Respiratory - Mechanically ventilatedintubated to secure airway following cardiac arrest. No significant hypoxia or acid-base disorders on ABG -Chest x-ray unremarkable -Follow-up ABG and chest x-ray in a.m. -Continue with mechanical ventilation for now, possible SBT in the morning -Continuous monitoring pulse ox and end-tidal CO2 GI - N.p.o. Hyperbilirubinemiastable, LFTs unremarkable. Monitor RENAL/LYTES - AKIimproving. Likely due to dehydration -Continue to hold lisinopril, HCTZ -Continue with IV fluid resuscitation -Monitor routine BMPs - Foleystrict I's and O's ENDO - DM type IIholding oral agents in favor of sliding scale. ICU hyperglycemic protocol HEME - H&H stable, monitor routine CBCs ID - Leukocytosislikely stress-induced. No other signs of infection at this time and will hold on antibiotic therapy for the time being. Trend fever curve LINES/IV ACCESS - Peripheral IVs DVT PROPHYLAXIS - SCDs, heparin subcu I have personally spent 70 minutes of critical care time in the direct management of this patient. This is a life/limb threatening event. This includes time spent evaluating patient, direct bedside care, chart review, placing orders, interpretation of diagnostic studies, discussion with consultants, patient, and family members, as well as other required patient management activities. This time is exclusive of all separately billable procedures, and teaching time and separate from and in addition to any other critical care service time. Thank you for allowing us to participate in the care of this patient. Please refer to my attending physician's documentation for any further recommendations. (2) Leukocytosis: (3) Acute encephalopathy: (4) Hyperbilirubinemia: (5) GABI (acute kidney injury): (6) Hypertension: (7) Diabetes: (8) Hyponatremia: (9) Psychosis: History of Present Illness Attending Physician: Zoila Wilkins MD History of Present Illness Patient is a 71-year-old female with past medical history of HTN, DM type II, and uncertain psychiatric history suspicious for depression and bipolar disorder. Patient was current resident at [facility] and was admitted with GABI, hyponatremia, and acute metabolic encephalopathy. Hyponatremia and GABI improved during hospitalization and patient was seen by psych. Was undergoing Effexor taper and Keppra had recently been stopped as patient has no known history of epilepsy. This evening patient had a witnessed arrest in which she displayed seizure-like activity. Patient was noted to have stopped breathing and no pulse was palpable and CODE BLUE was called. On arrival to the room patient was receiving CPR. Pads were placed on the patient which revealed underlying sinus rhythm which was thought to be PEA. At pulse check patient was noted to have agonal breathing and palpable pulse was obtained. No epinephrine have been administered as she did not have IV access at the time. At the time she was in sinus bradycardia and was displaying agonal breathing and unable to obtain airway. Decision was made to emergently intubate. She was then stabilized and taken for CT head which was negative for acute intracranial findings. She is now being admitted to ICU for further management at this time. Allergies Allergy/AdvReac Type Severity Reaction Status Date / Time ciprofloxacin Allergy Intermediate itching Unverified 11/23/21 10:55 Home Medications Medication Instructions Recorded Confirmed Type acetaminophen 325 mg tablet 650 mg PO Q4H PRN Pain 11/23/21 11/23/21 History amlodipine 5 mg tablet 10 mg PO QAM 11/23/21 11/23/21 History atorvastatin 20 mg tablet 20 mg PO HS 11/23/21 11/23/21 History carvedilol 3.125 mg tablet 12.5 mg PO BIDM 11/23/21 11/23/21 History donepezil 5 mg tablet 5 mg PO HS 11/23/21 11/23/21 History hydrochlorothiazide 25 mg tablet 25 mg PO QAM 11/23/21 11/23/21 History levetiracetam 250 mg tablet 250 mg PO HS 11/23/21 11/23/21 History lisinopril 20 mg tablet 40 mg PO QAM 11/23/21 11/23/21 History metformin 500 mg tablet 1,000 mg PO BID 11/23/21 11/23/21 History potassium chloride 10 mEq 10 meq PO BID 11/23/21 11/23/21 History capsule,extended release quetiapine 25 mg tablet 12.5 mg PO Q4H PRN Agitation 11/23/21 11/23/21 History quetiapine 50 mg tablet 50 mg PO HS 11/23/21 11/23/21 History sitagliptin 50 mg tablet (Januvia) 50 mg PO BID 11/23/21 11/23/21 History venlafaxine 37.5 mg 37.5 mg PO DAILY@1300 11/23/21 11/23/21 History capsule,extended release 24 hr venlafaxine 75 mg tablet,extended 75 mg PO QAM 11/23/21 11/23/21 History release 24 hr Patient History Medical History Acute dehydration Acute kidney injury Diabetes Hypertension Hyponatremia Psychosis Social History Smoking Status: Unknown if ever smoked Hx Substance Use: Yes (unknown) Preferred Language: Lithuanian Communication Ability: Impaired Embossing 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 Other Information That Helps Us Care for You: No other: Current inpatient at the [facility]. Feels Safe at Home: Yes Assistive Devices: Cane Review of Systems Review of Systems: Unobtainable due to cognitive status Physical Exam Constitutional: + mechanically ventilated Eyes: PERRL, conjunctivae normal, anicteric sclerae ENMT: external ear and nose normal, oropharynx normal Neck: trachea midline, no thyromegaly Respiratory: Mechanically ventilated. Symmetrical chest wall movement. Lungs clear to auscultation bilaterally. Cardiovascular: RRR, no murmur, no edema Extremities: normal capillary refill; no edema Gastrointestinal (Abdomen): normal bowel sounds, soft, nontender, no hepatosplenomegaly Skin: no rashes, warm and dry Neurologic: Sedated. MC Psychiatric: Sedated. MC Genitourinary: Indwelling Sharpe catheter Results & Data Results & Data ([facility]) Vital Signs (Past 12 Hours) Vital Signs Temp Pulse Pulse Pulse Resp BP BP 11/25/21 22:58 77 19 11/25/21 16:58 37.4 C 89 16 116/76 11/25/21 13:46 105 H 16 107/67 Pulse Ox O2 Del Method FiO2 11/25/21 22:58 99 40 11/25/21 16:58 94 Room Air 11/25/21 13:46 96 Coding Level of Care Code Critical Care 1st 30-74 mins Diagnoses Cardiac arrest I46.9 Leukocytosis D72.829 Acute encephalopathy G93.40 Hyperbilirubinemia E80.6 GABI (acute kidney injury) N17.9 Hypertension I10 Diabetes E11.9 Hyponatremia E87.1 Psychosis F29
--- NOTE | 2021-11-25 23:13 | Procedure Note ---
Procedure Note Date of Service November 25, 2021 Note INTUBATION PROCEDURE NOTE: Provider: CHILO Casanova Attending: Zoran Briones A time-out was completed verifying correct patient, procedure, site, positioning. Patient was evaluated and required intubation following cardiac arrest and unable to protect airway following ROSC. Sedative agent used: Etomidate Paralysis agent used: Succinylcholine []Emergent consent was implied given patients rapidly declining clinical status and need for airway protection. The patient was prepared in the appropriate fashion. Sedation was achieved utilizing etomidate and succinylcholine, per Dr. Lnych administration. The patient was easily ventilated using [id number] to achieve adequate oxygenation. A 7.5 Yi endotracheal tube was placed with assistance of video-assisted laryngoscope. Vocal cords were visualized and the ET tube was inserted into the trachea. The stylette was removed and balloon was inflated with 10mL of air. Appropriate Colorimetric change was appreciated. Bilateral breath sounds were heard without air sounds in the abdomen. Dr. Lynch was present for the entire procedure. Post Intubation Chest X-ray confirms placement without pneumothorax. Patient tolerated the procedure well and there were no immediate complications. Coding CPT Codes Resuscitation - Resuscitation: 45827 Endotracheal Intubation, emergency ([id number]) [facility] [place] Procedure Codes (Charges) Resuscitation Resuscitation: 88773 Endotracheal Intubation, emergency
[2021-11-25 23:30] LABS: Cortisol Random 20.25 mcg/dl
[2021-11-26 00:40] LABS: Amphetamines+Metham, Urine Neg (Neg); Barbiturates, Urine Neg (Neg); Benzodiazepine, Urine Neg (Neg); Cocaine, Urine Neg (Neg); MDMA (Ecstacy), Urine Neg (Neg); Methadone, Urine Neg (Neg); Opiate, Urine Neg (Neg); Phencyclidine, Urine Neg (Neg)
[2021-11-26] MEDS: MAGNESIUM SULFATE / D5W 1 GM/100 ML BAG IV SCH ×2 (01:23→03:16)
[2021-11-26 05:04] LABS: iSTAT Allen Test Pass; iSTAT Art Bld Gas pCO2 Correct 31 mmHg (35-46); iSTAT Art Bld Gas pH Corrected 7.444 (7.35-7.45); iSTAT Arterial Blood Gas HCO3 21 meg/L (19-24); iSTAT Arterial Blood Gas pCO2 31 mmHg (35-46); iSTAT Arterial Blood Gas pH 7.44 (7.35-7.45); iSTAT Arterial Blood Gas pO2 86 mmHg (80-95); iSTAT Arterial Blood Gas pO2 C 86; iSTAT Carbon Dioxide 22 mmol/L (24-31); iSTAT FiO2 30 %; iSTAT Hematocrit 27 % (37-47); iSTAT Hemoglobin 9.2 g/dl (12.0-16.0); iSTAT Potassium 2.9 mmol/L (3.3-5.0); iSTAT Site R Radial; iSTAT Sodium 131 mmol/L (135-144)
[2021-11-26 05:39] LABS: Basophils # (auto) 0.03 K/uL (0-0.2); Basophils % (auto) 0.2 %; Eosinophils # (auto) 0.16 K/uL (0-0.50); Eosinophils % (auto) 1.2 %; Hematocrit (blood only) 31.7 % (34.1-44.9); Immature Granulocytes # (auto) 0.08 K/uL (0.00-0.02); Immature Granulocytes % (auto) 0.6 %; Lymphocytes # (auto) 2.89 K/uL (1.2-3.4); Lymphocytes % (auto) 22.5 %; Mean Corpuscular Hemoglobin 32.2 pg (25.0-34.0); Mean Corpuscular Hgb Conc 34.7 g/dL (32.0-36.0); Mean Corpuscular Volume 92.7 fL (80.0-100.0); Mean Platelet Volume 8.7 fL (9.4-12.3); Monocytes # (auto) 0.78 K/uL (0.24-0.82); Monocytes % (auto) 6.1 %; Neutrophils # (auto) 8.88 K/uL (1.4-6.5); Neutrophils % (auto) 69.4 %; Platelet Count 265 K/uL (130-400); RDW Standard Deviation 40.9 fL (36.4-46.3); Red Blood Count 3.42 M/uL (3.93-5.22); White Blood Count 12.82 K/ul (4.8-10.8)
[2021-11-26 06:04] LABS: Albumin Globulin Ratio 1.7 (0.9-2); Albumin Level 3.7 gm/dl (3.4-5.0); BUN Creatinine Ratio 14.5 (10-20); Bilirubin,Total 1.3 mg/dl (0.2-1.0); Calcium 8.4 mg/dl (8.5-10.1); Creatinine Clr Calc Pharmacy 51.2 ml/min; Est GFR (African American) 59.3 ml/min; Est GFR (Non-African American) 51.2 ml/min; Globulin 2.2 gm/dl (2.5-4.0); Magnesium 2.1 mg/dl (1.7-2.4); Phosphorus 2.2 mg/dl (2.5-4.9); Total Protein 5.9 gm/dl (6.0-8.3)
[2021-11-26] MEDS ORDERED: POTASSIUM PHOS 3 MMOL/1 ML INFUSION IV STA (06:35)
[2021-11-26] MEDS ORDERED: POTASSIUM CHLORIDE 20 MEQ/15 ML UDC PO STA (06:35)
[2021-11-26] MEDS ORDERED: POTASSIUM PHOSPHATE 30 MMOL in SODIUM CHLORIDE 0.9% 500 ML IV ONE (06:45)
--- NOTE | 2021-11-26 06:50 | CT Scan Report ---
CT SCAN OF THE BRAIN WITHOUT IV CONTRAST CLINICAL HISTORY: Seizure. Cardiac arrest. COMPARISON STUDY: CT of the brain performed earlier the same day 11/25/2021. TECHNIQUE: Unenhanced axial CT scan of the brain is performed from the vertex to the skull base. A do se lowering technique was utilized adhering to the principles of ALARA. CT DOSE: 823.12 mGy.cm FINDINGS: An endotracheal tube is noted on the exploitation analyst tomogram. Brain parenchyma: There is age-related involutional change noting minimal subcortical and periventric ular microangiopathic disease. There is no hemorrhage, mass effect, or evidence of acute territorial ischemia by CT criteria. Ramos-white matter differentiation is preserved. No extra-axial fluid collect ion is seen. Ventricles, sulci, cisterns: Prominent secondary to involutional change. Intracranial vasculature: There is atherosclerotic calcification of the cavernous carotid arteries. Calvarium: Unremarkable. Sinuses and mastoids: The visualized paranasal sinuses are clear. The mastoid air cells are well pneu matized. Orbits: The bony orbits are grossly intact. There is a right ocular lens implant. IMPRESSION: There is no hemorrhage, mass effect, or evidence of acute territorial ischemia by CT chun urbina. ACT 112: Negative or not required by law. Electronically signed by: Sridhar Sifuentes M.D. 11/26/2021 6:49 AM
[2021-11-26] MEDS ORDERED: PROPOFOL BOLUS FROM BAG IV PRN (07:16)
[2021-11-26] MEDS ORDERED: STAT IV Infusion **Titration per Protocol STA (07:16)
[2021-11-26] MEDS ORDERED: propofoL 1,000 MG/100 ML VIAL IV SCH (07:30)
[2021-11-26] MEDS: SODIUM CHLORIDE 0.9% 1000ML 1,000 ML IV SCH ×2 (07:31→16:14)
[2021-11-26] MEDS: DOCUSATE SODIUM/SENNA 50/8.6MG TAB PO SCH (08:17)
[2021-11-26] MEDS: HEPARIN SOD 5,000 UNIT/0.5 ML VIAL SQ SCH ×2 (08:17→20:38)
--- NOTE | 2021-11-26 08:31 | XRay Report ---
SINGLE VIEW CHEST CLINICAL HISTORY: Respiratory arrest. Intubation. FINDINGS: An AP, portable, supine chest radiograph is compared to study dated 11/23/2021. An endotrach eal tube has been placed. The tip projects approximately 3.5 cm above the regino. The cardiomediastin al silhouette is unremarkable. There is mild elevation of the right hemidiaphragm with associated ate lectasis. The lungs and pleural spaces are otherwise clear. No pneumothorax is seen. The skeletal str uctures are osteopenic. The bony thorax is grossly intact. IMPRESSION: 1. An endotracheal tube has been placed as above. 2. The lungs are clear. ACT 112: Negative or not required by law. Electronically signed by: Sridhar Sifuentes M.D. 11/26/2021 8:30 AM
--- NOTE | 2021-11-26 08:33 | XRay Report ---
KUB CLINICAL HISTORY: Enteric tube placement. FINDINGS: An AP, portable, supine abdominal radiograph is obtained. No prior studies are available fo r comparison at the time of dictation. There is a nonobstructed abdominal bowel gas pattern. Gas is s een throughout the colon. An enteric tube has been placed. The tip projects below the diaphragm over the mid stomach. No evidence of intraperitoneal free air is seen on this supine image. There are no a bnormal abdominal calcifications. The skeletal structures are osteopenic and appear intact. Lumbosacr al spondylosis is observed. IMPRESSION: 1. An enteric tube has been placed as above. 2. There is no radiographic evidence of bowel obstruction Electronically signed by: Sridhar Sifuentes M.D. 11/26/2021 8:31 AM
[2021-11-26] MEDS ORDERED: levETIRAcetam 500 MG in 0.9 % SODIUM CHLORIDE 100 ML IV SCH (09:00)
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
--- NOTE | 2021-11-26 09:46 | Hospitalist Progress Note ---
Date of Service November 26, 2021 Assessment & Plan (1) Acute encephalopathy: Plan: Seems more consistent with acute metabolic encephalopathy as well as possible toxic encephalopathy from recent medication changes at psychiatric inpatient unit Discussed with psychiatry- tapered off Effexor, stopped Keppra Seroquel also seems to be causing possible akathisia-discontinued Symptoms ongoing despite resolution of GABI and improvement in sodium to close to normal Had seizure and CODE BLUE due to respiratory arrest and possible PEA on evening of 11/25--> discovered by 11/26 [facility] shows consistent use of po lorazepam tid therefore her whole presentation is likely delirium tremens related to lorazepam withdrawal. Now in ICU, extubated, restarted po lorazepam and started IV Depakote for seizures as well as for mood MRI brain with contrast negative 11/26 NH3 52 -Supportive care, can make one-on-one sitter prn now -Not allowed to leave AMA as per Psych due to encephalopathy, but I do not believe she is there on a 302 -dc Seroquel as can lower seizure threshold, dc Effexor -awaiting EEG -Neuro consult on Saturday -continue to correct hyponatremia although I do not believe her hyponatremia is related to/the cause of her seizure -continue IVFs -adv diet as tolerated s/p extubation -started Depakote for seizures/mood, check levels daily x 3 days as per Neuro -restart home lorazepam 0.5mg po tid-if desired to stop this medication, would recommend more gradual taper (2) Seizure: Plan: as above (3) GABI (acute kidney injury): Plan: Secondary to likely poor p.o. intake and side effect of psychiatric medications and withdrawal from lorazepam causing delirium which led to the poor p.o. intake. She is also on lisinopril and HCTZ at home both of which have been held Treated with IVFs x 2 days intermittently between patient pulling ot IVs [employer] now down to 1.1 from 2.2 on admission Metabolic acidosis is now improved, and hyponatremia also improved to 134 (from 129 on admit), BUN down to 19 from 44 Urinalysis shows ketones consistent with dehydration Na+ back down to 130 after seizure restarted IVFs, encourage po intake once able to take po Repeat BMP in AM (4) Acute dehydration: Plan: resolved as above (5) Fall: Plan: with mechanical fall-tripped while trying to run out the door, fell onto face and arm while delirious on 11/25 xrays of right wrist and CT head noncon negative continue 1:1 sitter prn (6) Diarrhea: Plan: reported on admission but she has not had a BM since admission, she thinks she is constipated started senna/docusate, Miralax (7) Hyponatremia: Plan: Suspect due to poor intake and HCTZ use Improved Follow BMP (8) Groin pain: Plan: Complained of bilateral groin pain to RN. Now appears comfortable, no abnormalities on exam Urinalysis with ketones only (9) Hypertension: Plan: Blood pressures controlled Continue amlodipine and carvedilol. Stop lisinopril and HCTZ as above (10) Hyperbilirubinemia: Plan: Total bilirubin 2.0 on admission but rest of LFTs are normal No upper abdominal pain noted on admission Total bilirubin now down to 1.2 Could be Gilbert's in the setting of dehydration Follow LFTs (11) Leukocytosis: Plan: WBC count persistently mildly elevated at 12-13 each day, afebrile, no evidence of infection anywhere With acute rise to 22 shortly after CODE suspect stress induced continue to follow clinically follow CBC in AM Plan VTE Prophylaxis - low risk and increased risk of delusions/delirium therefore deferred Diet - NPO for now until improved s/p extubation Disposition-continued stay in ICU, possible downgrade to PCU tomorrow if continues to improve, eventually back to the [facility] psychiatric unit when encephalopathy and acute kidney injury resolved Admission and Anticipated Discharge Date Admission Date: November 25, 2021 Subjective Pt had seizure activity last night and difficulty breathing/witnessed agonal respirations as per notes from nursing, CODE ASHLEY called as initially thought to not have a pulse. Had CPR and had sinus rhythm, was intubated for airway protection, and transferred to ICU. She was extubated today and I saw her 2 hours afterwards. SHe was drowsy but did wake up and answer some of my que stions. She does says that she typically takes lorazepam 3 times a day prior to her admission at the [facility]. She was not being given this medication prior to her transfer here and it was not known until today that she was previously on this medication. Remains on 3LNC, VSS, remains NPO, on IVFs. Brain MRI completed and negative, EEG not done yet. I discussed her care at length with Neurology, Psychiatry, and the Outreach Director. Tele reviewed and NSR, PVCs, normal rates Review of Systems Review of Systems: Unobtainable due to cognitive status Physical Exam Constitutional: WD/WN, vitals as above Eyes: PERRL, conjunctivae normal, anicteric sclerae EOM intact bilaterally; no anisocoria and no nystagmus ENMT: external ear and nose normal, oropharynx normal Neck: trachea midline, no thyromegaly Respiratory: normal respiratory effort, lungs clear to auscultation Cardiovascular: RRR, no murmur, no edema Gastrointestinal (Abdomen): normal bowel sounds, soft, nontender, no hepatosplenomegaly Musculoskeletal: Extremities: no cyanosis and no clubbing Skin: no rashes, warm and dry Trauma: + abrasion (left knee, right knee scab) Psychiatric: Orientation: + not alert (drowsy but wakes up to verbal stimulus and answers questions) Eye Contact: + fair eye contact Affect: + flat affect Insight: + impaired insight Judgement: + impaired judgement Results & Data Results & Data ([facility]) Vital Signs (Past 12 Hours) Vital Signs Temp Pulse Resp BP Pulse Ox O2 Del Method FiO2 11/26/21 09:10 37.5 C 70 14 98 11/26/21 09:00 37.4 C 80 20 118/64 99 11/26/21 08:50 37.4 C 79 16 99 11/26/21 08:40 37.4 C 69 14 98 11/26/21 08:30 37.4 C 67 16 97 11/26/21 08:30 118/64 11/26/21 08:20 37.4 C 73 16 99 11/26/21 08:10 37.4 C 69 14 98 11/26/21 08:00 37.3 C 70 16 98 11/26/21 08:00 129/62 11/26/21 08:53 30 11/26/21 07:50 37.4 C 66 16 99 11/26/21 07:40 37.4 C 65 14 98 11/26/21 07:30 37.4 C 71 16 99 11/26/21 07:30 137/79 11/26/21 07:20 37.4 C 69 16 99 11/26/21 07:17 113/66 11/26/21 07:17 37.4 C 71 17 99 11/26/21 07:10 37.4 C 69 14 97 11/26/21 07:00 37.5 C 71 16 99 11/26/21 07:00 124/67 Mechanical Vent 11/26/21 06:50 37.5 C 64 16 98 11/26/21 06:40 37.5 C 65 14 98 11/26/21 06:30 37.5 C 63 16 98 11/26/21 06:20 37.5 C 66 16 99 11/26/21 06:10 37.5 C 67 14 98 11/26/21 06:00 37.5 C 68 16 98 11/26/21 06:00 117/61 11/26/21 05:50 37.6 C H 67 16 98 11/26/21 05:40 37.5 C 68 14 98 11/26/21 07:24 57 L 22 99 30 11/26/21 08:00 68 11/26/21 08:00 Mechanical Vent 11/26/21 05:30 37.5 C 68 16 98 11/26/21 05:30 134/65 11/26/21 05:20 37.5 C 70 16 99 11/26/21 05:10 37.5 C 66 14 98 11/26/21 05:00 37.5 C 65 16 98 11/26/21 05:00 128/67 11/26/21 04:50 37.5 C 66 18 99 11/26/21 04:40 37.5 C 65 16 98 11/26/21 04:56 16 11/26/21 04:30 37.5 C 66 18 98 11/26/21 04:30 123/62 11/26/21 04:20 37.5 C 68 18 99 11/26/21 04:10 37.5 C 67 16 99 11/26/21 04:00 37.5 C 69 18 99 11/26/21 04:00 118/63 11/26/21 03:50 37.5 C 70 18 99 11/26/21 03:40 37.5 C 70 16 98 11/26/21 03:30 37.5 C 69 18 11/26/21 03:30 112/59 L 11/26/21 03:20 37.4 C 70 18 98 11/26/21 03:10 37.4 C 67 16 99 11/26/21 03:00 37.3 C 69 18 98 11/26/21 03:00 138/68 11/26/21 02:50 37.3 C 71 18 99 11/26/21 02:40 37.3 C 72 16 97 11/26/21 02:30 37.2 C 68 18 98 11/26/21 02:30 118/63 11/26/21 02:20 37.2 C 68 18 98 11/26/21 02:10 37.2 C 70 16 98 11/26/21 02:00 37.2 C 63 18 11/26/21 01:50 37.1 C 69 18 98 11/26/21 01:40 37.1 C 71 16 98 11/26/21 01:30 37.1 C 67 18 11/26/21 01:30 118/61 11/26/21 01:20 37.1 C 69 18 98 11/26/21 01:10 37.0 C 70 16 98 11/26/21 01:00 37.0 C 70 18 98 11/26/21 00:50 36.9 C 70 18 97 11/26/21 00:40 36.8 C 71 16 98 11/26/21 00:31 122/72 11/26/21 00:31 36.8 C 65 16 95 11/26/21 00:30 36.8 C 70 18 98 11/26/21 00:20 36.7 C 71 18 99 11/26/21 00:10 36.6 C 68 16 99 11/26/21 00:01 36.6 C 70 16 100 11/26/21 00:01 165/80 H 11/26/21 00:00 36.6 C 70 18 100 11/25/21 23:50 36.7 C 65 18 100 11/25/21 23:40 36.7 C 64 15 100 11/25/21 23:30 36.6 C 62 18 11/25/21 23:30 135/74 11/25/21 23:20 36.6 C 65 18 100 11/25/21 23:10 36.6 C 69 18 100 11/25/21 23:00 36.7 C 67 18 100 11/25/21 23:00 132/70 11/25/21 22:50 36.8 C 70 18 98 11/25/21 22:40 36.9 C 74 18 98 11/25/21 22:30 37.0 C 79 18 100 11/25/21 22:30 94/63 L 11/26/21 02:45 66 18 98 30 11/26/21 01:00 70 11/26/21 00:32 Mechanical Vent 30 11/25/21 22:58 77 19 99 40 Laboratory Results 11/26/21 11/26/21 11/26/21 Range/Units 08:44 05:15 05:15 WBC (4.8-10.8) K/ul RBC (3.93-5.22) M/uL Hgb (12.0-16.0) g/dl POC Hgb (12.0-16.0) g/dl Hct (34.1-44.9) % POC Hct (37-47) % MCV (80.0-100.0) fL MCH (25.0-34.0) pg MCHC (32.0-36.0) g/dL RDW Std Deviation (36.4-46.3) fL RDW Coeff of Farida (11.5-14.5) % Plt Count (130-400) K/uL MPV (9.4-12.3) fL Immature Gran % (Auto) % Neut % (Auto) % Lymph % (Auto) % [place] % (Auto) % Eos % (Auto) % Baso % (Auto) % Neut # (Auto) (1.4-6.5) K/uL Lymph # (Auto) (1.2-3.4) K/uL [place] # (Auto) (0.24-0.82) K/uL Eos # (Auto) (0-0.50) K/uL Baso # (Auto) (0-0.2) K/uL Immature Gran # (Auto) (0.00-0.02) K/uL PT (9.0-12.0) Seconds INR (0.9-1.1) Sample Site POC pH (7.35-7.45) POC pCO2 (35-46) mmHg POC pO2 (80-95) mmHg POC HCO3 (19-24) elisa/L POC Total CO2 (24-31) mmol/L POC Base Excess (-9-1.8) elisa/L ABG pH (Temp Correct) (7.35-7.45) ABG pCO2 (Temp Corrct (35-46) mmHg POC ABG pO2 at Pt Temp POC ABG O2 Sat (90-95) % Sina Test O2 Delivery Device POC O2 Rate POC FiO2 % Tidal Volume PEEP POC Sodium (135-144) mmol/L Sodium 130 L (136-145) mmol/L POC Potassium (3.3-5.0) mmol/L Potassium 3.0 L D (3.5-5.1) mmol/L Chloride 98 (98-107) mmol/L Carbon Dioxide 23 (21-32) mmol/L Anion Gap 9 (3-11) BUN 16 (6-23) mg/dl Creatinine 1.10 (0.6-1.2) mg/dl Est Cr Clr Drug Dosing 51.2 ml/min Est GFR ( Amer) 59.3 ml/min Est GFR (Non-Af Amer) 51.2 ml/min BUN/Creatinine Ratio 14.5 (10-20) Glucose 168 H (70-99(Fasting)) mg/dl POC Glucose 154 H (70-99) mg/dl Lactate (0.4-2.0) mmol/L Calcium 8.4 L (8.5-10.1) mg/dl Phosphorus 2.2 L D (2.5-4.9) mg/dl Magnesium 2.1 (1.7-2.4) mg/dl Total Bilirubin 1.3 H (0.2-1.0) mg/dl AST 34 (13-39) U/L ALT 36 (7-52) U/L Alkaline Phosphatase 58 (34-104) U/L Ammonia (18-72) umol/L Troponin I High Sens (0-14) pg/ml Total Protein 5.9 L (6.0-8.3) gm/dl Albumin 3.7 (3.4-5.0) gm/dl Globulin 2.2 L (2.5-4.0) gm/dl Albumin/Globulin Ratio 1.7 (0.9-2) Vitamin B12 (180-914) pg/ml Procalcitonin < 0.05 (0-0.5) ng/ml Random Cortisol mcg/dl Urine Opiates Screen (Neg) Ur Methadone, Qual (Neg) Urine Barbiturates (Neg) Levetiracetam Ur Phencyclidine (PCP) (Neg) U Amphetamin/Meth Scrn (Neg) MDMA (Ecstasy) Screen (Neg) U Benzodiazepines Scrn (Neg) Ur Cocaine Metabolite (Neg) U Marijuana (THC) Screen (Neg) 11/26/21 11/26/21 11/26/21 Range/Units 05:15 04:50 00:31 WBC 12.82 H (4.8-10.8) K/ul RBC 3.42 L (3.93-5.22) M/uL Hgb 11.0 L (12.0-16.0) g/dl POC Hgb 9.2 L (12.0-16.0) g/dl Hct 31.7 L (34.1-44.9) % POC Hct 27 L (37-47) % MCV 92.7 (80.0-100.0) fL MCH 32.2 (25.0-34.0) pg MCHC 34.7 (32.0-36.0) g/dL RDW Std Deviation 40.9 (36.4-46.3) fL RDW Coeff of Farida 12.0 (11.5-14.5) % Plt Count 265 (130-400) K/uL MPV 8.7 L (9.4-12.3) fL Immature Gran % (Auto) 0.6 % Neut % (Auto) 69.4 % Lymph % (Auto) 22.5 % [place] % (Auto) 6.1 % Eos % (Auto) 1.2 % Baso % (Auto) 0.2 % Neut # (Auto) 8.88 H (1.4-6.5) K/uL Lymph # (Auto) 2.89 (1.2-3.4) K/uL [place] # (Auto) 0.78 (0.24-0.82) K/uL Eos # (Auto) 0.16 (0-0.50) K/uL Baso # (Auto) 0.03 (0-0.2) K/uL Immature Gran # (Auto) 0.08 H (0.00-0.02) K/uL PT (9.0-12.0) Seconds INR (0.9-1.1) Sample Site R Radial POC pH 7.44 (7.35-7.45) POC pCO2 31 L (35-46) mmHg POC pO2 86 (80-95) mmHg POC HCO3 21 (19-24) elisa/L POC Total CO2 22 L (24-31) mmol/L POC Base Excess -3.0 (-9-1.8) elisa/L ABG pH (Temp Correct) 7.444 (7.35-7.45) ABG pCO2 (Temp Corrct 31 L (35-46) mmHg POC ABG pO2 at Pt Temp 86 POC ABG O2 Sat 97.0 H (90-95) % Sina Test Pass O2 Delivery Device Ventilator POC O2 Rate 18 POC FiO2 30 % Tidal Volume 400 PEEP 5 POC Sodium 131 L (135-144) mmol/L Sodium (136-145) mmol/L POC Potassium 2.9 L (3.3-5.0) mmol/L Potassium (3.5-5.1) mmol/L Chloride (98-107) mmol/L Carbon Dioxide (21-32) mmol/L Anion Gap (3-11) BUN (6-23) mg/dl Creatinine (0.6-1.2) mg/dl Est Cr Clr Drug Dosing ml/min Est GFR ( Amer) ml/min Est GFR (Non-Af Amer) ml/min BUN/Creatinine Ratio (10-20) Glucose (70-99(Fasting)) mg/dl POC Glucose (70-99) mg/dl Lactate 2.0 (0.4-2.0) mmol/L Calcium (8.5-10.1) mg/dl Phosphorus (2.5-4.9) mg/dl Magnesium (1.7-2.4) mg/dl Total Bilirubin (0.2-1.0) mg/dl AST (13-39) U/L ALT (7-52) U/L Alkaline Phosphatase (34-104) U/L Ammonia (18-72) umol/L Troponin I High Sens (0-14) pg/ml Total Protein (6.0-8.3) gm/dl Albumin (3.4-5.0) gm/dl Globulin (2.5-4.0) gm/dl Albumin/Globulin Ratio (0.9-2) Vitamin B12 (180-914) pg/ml Procalcitonin (0-0.5) ng/ml Random Cortisol mcg/dl Urine Opiates Screen (Neg) Ur Methadone, Qual (Neg) Urine Barbiturates (Neg) Levetiracetam Ur Phencyclidine (PCP) (Neg) U Amphetamin/Meth Scrn (Neg) MDMA (Ecstasy) Screen (Neg) U Benzodiazepines Scrn (Neg) Ur Cocaine Metabolite (Neg) U Marijuana (THC) Screen (Neg) 11/25/21 11/25/21 11/25/21 Range/Units 23:31 22:48 22:48 WBC (4.8-10.8) K/ul RBC (3.93-5.22) M/uL Hgb (12.0-16.0) g/dl POC Hgb (12.0-16.0) g/dl Hct (34.1-44.9) % POC Hct (37-47) % MCV (80.0-100.0) fL MCH (25.0-34.0) pg MCHC (32.0-36.0) g/dL RDW Std Deviation (36.4-46.3) fL RDW Coeff of Farida (11.5-14.5) % Plt Count (130-400) K/uL MPV (9.4-12.3) fL Immature Gran % (Auto) % Neut % (Auto) % Lymph % (Auto) % [place] % (Auto) % Eos % (Auto) % Baso % (Auto) % Neut # (Auto) (1.4-6.5) K/uL Lymph # (Auto) (1.2-3.4) K/uL [place] # (Auto) (0.24-0.82) K/uL Eos # (Auto) (0-0.50) K/uL Baso # (Auto) (0-0.2) K/uL Immature Gran # (Auto) (0.00-0.02) K/uL PT (9.0-12.0) Seconds INR (0.9-1.1) Sample Site POC pH (7.35-7.45) POC pCO2 (35-46) mmHg POC pO2 (80-95) mmHg POC HCO3 (19-24) elisa/L POC Total CO2 (24-31) mmol/L POC Base Excess (-9-1.8) elisa/L ABG pH (Temp Correct) (7.35-7.45) ABG pCO2 (Temp Corrct (35-46) mmHg POC ABG pO2 at Pt Temp POC ABG O2 Sat (90-95) % Sina Test O2 Delivery Device POC O2 Rate POC FiO2 % Tidal Volume PEEP POC Sodium (135-144) mmol/L Sodium (136-145) mmol/L POC Potassium (3.3-5.0) mmol/L Potassium (3.5-5.1) mmol/L Chloride (98-107) mmol/L Carbon Dioxide (21-32) mmol/L Anion Gap (3-11) BUN (6-23) mg/dl Creatinine (0.6-1.2) mg/dl Est Cr Clr Drug Dosing ml/min Est GFR ( Amer) ml/min Est GFR (Non-Af Amer) ml/min BUN/Creatinine Ratio (10-20) Glucose (70-99(Fasting)) mg/dl POC Glucose (70-99) mg/dl Lactate 3.9 H* (0.4-2.0) mmol/L Calcium (8.5-10.1) mg/dl Phosphorus (2.5-4.9) mg/dl Magnesium (1.7-2.4) mg/dl Total Bilirubin (0.2-1.0) mg/dl AST (13-39) U/L ALT (7-52) U/L Alkaline Phosphatase (34-104) U/L Ammonia (18-72) umol/L Troponin I High Sens 6.0 (0-14) pg/ml Total Protein (6.0-8.3) gm/dl Albumin (3.4-5.0) gm/dl Globulin (2.5-4.0) gm/dl Albumin/Globulin Ratio (0.9-2) Vitamin B12 (180-914) pg/ml Procalcitonin (0-0.5) ng/ml Random Cortisol mcg/dl Urine Opiates Screen Neg (Neg) Ur Methadone, Qual Neg (Neg) Urine Barbiturates Neg (Neg) Levetiracetam Ur Phencyclidine (PCP) Neg (Neg) U Amphetamin/Meth Scrn Neg (Neg) MDMA (Ecstasy) Screen Neg (Neg) U Benzodiazepines Scrn Neg (Neg) Ur Cocaine Metabolite Neg (Neg) U Marijuana (THC) Screen Neg (Neg) 11/25/21 11/25/21 11/25/21 Range/Units 22:48 22:43 22:43 WBC (4.8-10.8) K/ul RBC (3.93-5.22) M/uL Hgb (12.0-16.0) g/dl POC Hgb (12.0-16.0) g/dl Hct (34.1-44.9) % POC Hct (37-47) % MCV (80.0-100.0) fL MCH (25.0-34.0) pg MCHC (32.0-36.0) g/dL RDW Std Deviation (36.4-46.3) fL RDW Coeff of Farida (11.5-14.5) % Plt Count (130-400) K/uL MPV (9.4-12.3) fL Immature Gran % (Auto) % Neut % (Auto) % Lymph % (Auto) % [place] % (Auto) % Eos % (Auto) % Baso % (Auto) % Neut # (Auto) (1.4-6.5) K/uL Lymph # (Auto) (1.2-3.4) K/uL [place] # (Auto) (0.24-0.82) K/uL Eos # (Auto) (0-0.50) K/uL Baso # (Auto) (0-0.2) K/uL Immature Gran # (Auto) (0.00-0.02) K/uL PT (9.0-12.0) Seconds INR (0.9-1.1) Sample Site POC pH (7.35-7.45) POC pCO2 (35-46) mmHg POC pO2 (80-95) mmHg POC HCO3 (19-24) elisa/L POC Total CO2 (24-31) mmol/L POC Base Excess (-9-1.8) elisa/L ABG pH (Temp Correct) (7.35-7.45) ABG pCO2 (Temp Corrct (35-46) mmHg POC ABG pO2 at Pt Temp POC ABG O2 Sat (90-95) % Sina Test O2 Delivery Device POC O2 Rate POC FiO2 % Tidal Volume PEEP POC Sodium (135-144) mmol/L Sodium (136-145) mmol/L POC Potassium (3.3-5.0) mmol/L Potassium (3.5-5.1) mmol/L Chloride (98-107) mmol/L Carbon Dioxide (21-32) mmol/L Anion Gap (3-11) BUN (6-23) mg/dl Creatinine (0.6-1.2) mg/dl Est Cr Clr Drug Dosing ml/min Est GFR ( Amer) ml/min Est GFR (Non-Af Amer) ml/min BUN/Creatinine Ratio (10-20) Glucose (70-99(Fasting)) mg/dl POC Glucose (70-99) mg/dl Lactate (0.4-2.0) mmol/L Calcium (8.5-10.1) mg/dl Phosphorus (2.5-4.9) mg/dl Magnesium (1.7-2.4) mg/dl Total Bilirubin (0.2-1.0) mg/dl AST (13-39) U/L ALT (7-52) U/L Alkaline Phosphatase (34-104) U/L Ammonia 52.0 (18-72) umol/L Troponin I High Sens (0-14) pg/ml Total Protein (6.0-8.3) gm/dl Albumin (3.4-5.0) gm/dl Globulin (2.5-4.0) gm/dl Albumin/Globulin Ratio (0.9-2) Vitamin B12 173 L (180-914) pg/ml Procalcitonin (0-0.5) ng/ml Random Cortisol 20.25 mcg/dl Urine Opiates Screen (Neg) Ur Methadone, Qual (Neg) Urine Barbiturates (Neg) Levetiracetam Pending Ur Phencyclidine (PCP) (Neg) U Amphetamin/Meth Scrn (Neg) MDMA (Ecstasy) Screen (Neg) U Benzodiazepines Scrn (Neg) Ur Cocaine Metabolite (Neg) U Marijuana (THC) Screen (Neg) 11/25/21 11/25/21 11/25/21 Range/Units 22:43 21:25 21:25 WBC 22.16 H D (4.8-10.8) K/ul RBC 3.66 L (3.93-5.22) M/uL Hgb 11.6 L (12.0-16.0) g/dl POC Hgb (12.0-16.0) g/dl Hct 35.4 (34.1-44.9) % POC Hct (37-47) % MCV 96.7 D (80.0-100.0) fL MCH 31.7 (25.0-34.0) pg MCHC 32.8 (32.0-36.0) g/dL RDW Std Deviation 42.4 (36.4-46.3) fL RDW Coeff of Farida 11.9 (11.5-14.5) % Plt Count 342 (130-400) K/uL MPV 8.9 L (9.4-12.3) fL Immature Gran % (Auto) % Neut % (Auto) % Lymph % (Auto) % [place] % (Auto) % Eos % (Auto) % Baso % (Auto) % Neut # (Auto) (1.4-6.5) K/uL Lymph # (Auto) (1.2-3.4) K/uL [place] # (Auto) (0.24-0.82) K/uL Eos # (Auto) (0-0.50) K/uL Baso # (Auto) (0-0.2) K/uL Immature Gran # (Auto) (0.00-0.02) K/uL PT 11.0 (9.0-12.0) Seconds INR 1.0 (0.9-1.1) Sample Site POC pH (7.35-7.45) POC pCO2 (35-46) mmHg POC pO2 (80-95) mmHg POC HCO3 (19-24) elisa/L POC Total CO2 (24-31) mmol/L POC Base Excess (-9-1.8) elisa/L ABG pH (Temp Correct) (7.35-7.45) ABG pCO2 (Temp Corrct (35-46) mmHg POC ABG pO2 at Pt Temp POC ABG O2 Sat (90-95) % Sina Test O2 Delivery Device POC O2 Rate POC FiO2 % Tidal Volume PEEP POC Sodium (135-144) mmol/L Sodium 133 L (136-145) mmol/L POC Potassium (3.3-5.0) mmol/L Potassium 4.0 (3.5-5.1) mmol/L Chloride 97 L (98-107) mmol/L Carbon Dioxide 18 L (21-32) mmol/L Anion Gap 18 H (3-11) BUN 19 (6-23) mg/dl Creatinine 1.29 H (0.6-1.2) mg/dl Est Cr Clr Drug Dosing 42.9 ml/min Est GFR ( Amer) 48.9 ml/min Est GFR (Non-Af Amer) 42.2 ml/min BUN/Creatinine Ratio 14.7 (10-20) Glucose 228 H (70-99(Fasting)) mg/dl POC Glucose (70-99) mg/dl Lactate (0.4-2.0) mmol/L Calcium 9.3 (8.5-10.1) mg/dl Phosphorus 3.7 (2.5-4.9) mg/dl Magnesium 1.8 (1.7-2.4) mg/dl Total Bilirubin 1.2 H (0.2-1.0) mg/dl AST 30 (13-39) U/L ALT 35 (7-52) U/L Alkaline Phosphatase 64 (34-104) U/L Ammonia (18-72) umol/L Troponin I High Sens (0-14) pg/ml Total Protein 6.7 (6.0-8.3) gm/dl Albumin 4.2 (3.4-5.0) gm/dl Globulin 2.5 (2.5-4.0) gm/dl Albumin/Globulin Ratio 1.7 (0.9-2) Vitamin B12 (180-914) pg/ml Procalcitonin (0-0.5) ng/ml Random Cortisol mcg/dl Urine Opiates Screen (Neg) Ur Methadone, Qual (Neg) Urine Barbiturates (Neg) Levetiracetam Ur Phencyclidine (PCP) (Neg) U Amphetamin/Meth Scrn (Neg) MDMA (Ecstasy) Screen (Neg) U Benzodiazepines Scrn (Neg) Ur Cocaine Metabolite (Neg) U Marijuana (THC) Screen (Neg) Diagnostic Findings Wrist X-Ray 11/25/21 13:53 XR wrist RT min 3V routine CLINICAL HISTORY: fall, right wrist pain COMPARISON STUDY: None. FINDINGS: Soft tissue swelling within the right wrist. No fracture or dislocation. 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 There is also mild osteoarthritis at the radiocarpal joint. IMPRESSION: Soft tissue swelling within the right wrist. No acute fractures. ACT 112: Negative or not required by law. Electronically signed by: Moris Ann M.D. 11/25/2021 2:[address] 11/25/21 21:31 CT SCAN OF THE BRAIN WITHOUT IV CONTRAST CLINICAL HISTORY: Seizure. Cardiac arrest. COMPARISON STUDY: CT of the brain performed earlier the same day 11/25/2021. TECHNIQUE: Unenhanced axial CT scan of the brain is performed from the vertex to the skull base. A dose lowering technique was utilized adhering to the principles of ALARA. CT DOSE: 823.12 mGy.cm FINDINGS: An endotracheal tube is noted on the hotel director tomogram. Brain parenchyma: There is age-related involutional change noting minimal subcortical and periventricular microangiopathic disease. There is no hemorrhage, mass effect, or evidence of acute territorial ischemia by CT criteria. Ramos-white matter differentiation is preserved. No extra-axial fluid collection is seen. Ventricles, sulci, cisterns: Prominent secondary to involutional change. Intracranial vasculature: There is atherosclerotic calcification of the cavernous carotid arteries. Calvarium: Unremarkable. Sinuses and mastoids: The visualized paranasal sinuses are clear. The mastoid air cells are well pneumatized. Orbits: The bony orbits are grossly intact. There is a right ocular lens implant. IMPRESSION: There is no hemorrhage, mass effect, or evidence of acute territorial ischemia by CT criteria. ACT 112: Negative or not required by law. Electronically signed by: Sridhar Sifuentes M.D. 11/26/2021 6:49 AM Chest X-Ray 11/25/21 21:34 SINGLE VIEW CHEST CLINICAL HISTORY: Respiratory arrest. Intubation. FINDINGS: An AP, portable, supine chest radiograph is compared to study dated 11/23/2021. An endotracheal tube has been placed. The tip projects approximately 3.5 cm above the regino. The cardiomediastinal silhouette is unremarkable. There is mild elevation of the right hemidiaphragm with associated atelectasis. The lungs and pleural spaces are otherwise clear. No pneumothorax is seen. The skeletal structures are osteopenic. The bony thorax is grossly intact. IMPRESSION: 1. An endotracheal tube has been placed as above. 2. The lungs are clear. ACT 112: Negative or not required by law. Electronically signed by: Sridhar Sifuentes M.D. 11/26/2021 8:30 AM KUB X-Ray 11/25/21 22:07 KUB CLINICAL HISTORY: Enteric tube placement. FINDINGS: An AP, portable, supine abdominal radiograph is obtained. No prior studies are available for comparison at the time of dictation. There is a nonobstructed abdominal bowel gas pattern. Gas is seen throughout the colon. An enteric tube has been placed. The tip projects below the diaphragm over the mid stomach. No evidence of intraperitoneal free air is seen on this supine image. There are no abnormal abdominal calcifications. The skeletal structures are osteopenic and appear intact. Lumbosacral spondylosis is observed. IMPRESSION: 1. An enteric tube has been placed as above. 2. There is no radiographic evidence of bowel obstruction Electronically signed by: Sridhar Sifuentes M.D. 11/26/2021 8:31 AM Brain MRI 11/26/21 09:29 MRI OF THE BRAIN COMBO CLINICAL HISTORY: Seizure. COMPARISON STUDY: CT of the brain dated 11/25/2021. TECHNIQUE: MRI of the brain was performed utilizing various T1 and T2-weighted sequences in the axial, sagittal, and coronal planes. Contrast-enhanced sequences were acquired following the administration of 7.8 cc of Gadavist. FINDINGS: Brain parenchyma: There is age-related involutional change noting minimal microangiopathic disease. There is no hemorrhage or mass effect. There is no restricted diffusion to suggest acute ischemia. No enhancing mass lesion is identified on the postcontrast images. Ramos-white matter differentiation is preserved. No extra-axial fluid collection is seen. The cerebellar tonsils are normal in configuration. The hippocampi are normal and symmetric. Ventricles, sulci, and cisterns: Prominent secondary to involutional change. Pituitary and sella: Unremarkable. Intracranial vasculature: Normal flow voids are maintained at the skull base. Orbits: The bony orbits are grossly intact. Orbital contents are normal in appearance noting a right ocular lens implants. Sinuses and mastoids: There is trace mucosal thickening ethmoid sinuses. The remaining paranasal sinuses and the mastoid air cells are clear. A small amount of layering fluid is noted in the pharynx. Calvarium: Unremarkable. Cervical cord: Partially visualized cervical spinal cord is normal in morphology and signal intensity. IMPRESSION: No intracranial abnormality is identified. ACT 112: Negative or not required by law. Electronically signed by: Sridhar Sifuentes M.D. 11/26/2021 11:15 AM ECG Additional Comments: ECG NSR, no ischemic changes ECHO-normal PG Care Time/CCT Total # of Minutes Spent Total Time Spent with Patient: Total time spent is greater than 50% in coordination of care (as documented) at patient's floor/unit and/or counseling patient: Coding Level of Care Code 88397 Subseq Hosp Care Lvl 3 Diagnoses Acute encephalopathy G93.40 Seizure R56.9 GABI (acute kidney injury) N17.9 Acute dehydration E86.0 Fall W19.XXXA Diarrhea R19.7 Hyponatremia E87.1 Groin pain R10.30 Hypertension I10 Hyperbilirubinemia E80.6 Leukocytosis D72.829
[2021-11-26] MEDS ORDERED: VALPROATE SOD 1,000 MG in DEXTROSE 5% 50 ML IV ONE (10:00)
--- NOTE | 2021-11-26 10:14 | Critical Care Progress Note ---
Date of Service November 26, 2021 Assessment & Plan (1) Cardiac arrest: Plan: Reason Critically Ill: 71-year-old female with questionable seizure-like activity followed by cardiac arrest presents to the ICU following CODE BLUE with successful ROSC, now mechanically ventilated. Neuro - Sedation: Fentanyl/Versed drips -Decrease sedation after MRI to proceed with extubation Psychosis/encephalopathypatient's encephalopathy was reported to be improving and was thought to be related to GABI/hyponatremia which have both improved. -Ammonia was unremarkable, BUN 19 -Effexor was being weaned and Seroquel increased -We will hold Seroquel and Zyprexa for the time being -Psychiatry following -Restart Ativan schedule SeizureUnsure of etiology at this time. Patient had witnessed seizure-like activity prior to cardiac arrest which likely contributed. -No confirmed history of seizures the patient was on Keppra -Keppra recently stopped. We will restart -CT head negative for acute intracranial findings -MRI and EEG pending -Consult neurology Cardiac - Cardiac arrestpatient thought to be in PEA rhythm which converted with CPR only to sinus rhythm. Unclear etiology at this time but thought to be respiratory arrest related to seizure activity? -EKG sinus rhythm without ST elevation. QTc within normal limits -Troponin pending -Hold hypertensive medications for the time being -Echo pending -Currently hemodynamically stable without need for vasopressors and sinus rhythm on monitor -Continuous monitor on telemetry Respiratory - Mechanically ventilatedintubated to secure airway following cardiac arrest. No significant hypoxia or acid-base disorders on ABG -Chest x-ray unremarkable -Follow-up ABG and chest x-ray in a.m. -Stable for trial of extubation once MRI completed GI - N.p.o. Hyperbilirubinemiastable, LFTs unremarkable. Monitor RENAL/LYTES - AKIresolved. Likely due to dehydration -Continue to hold lisinopril, HCTZ - Foleystrict I's and O's ENDO - DM type IIholding oral agents in favor of sliding scale. ICU hyperglycemic protocol HEME - H&H stable, monitor routine CBCs ID - Leukocytosislikely stress-induced. No other signs of infection at this time and will hold on antibiotic therapy for the time being. Trend fever curve LINES/IV ACCESS - Peripheral IVs DVT PROPHYLAXIS - SCDs, heparin subcu I have personally spent 35 minutes of critical care time in the direct management of this patient. This is a life/limb threatening event. This includes time spent evaluating patient, direct bedside care, chart review, placing orders, interpretation of diagnostic studies, discussion with consultants, patient, and family members, as well as other required patient management activities. This time is exclusive of all separately billable procedures, and teaching time and separate from and in addition to any other critical care service time. (2) Leukocytosis: (3) Acute encephalopathy: (4) Hyperbilirubinemia: (5) GABI (acute kidney injury): (6) Hypertension: (7) Diabetes: (8) Hyponatremia: (9) Psychosis: Admission and Anticipated Discharge Date Admission Date: November 25, 2021 Subjective No overnight events. Patient following simple commands Review of Systems Review of Systems: Unobtainable due to endotracheal tube Physical Exam Physical Exam: General: Sedated. nontoxic. Skin: Warm, dry, Head: Atraumatic Ears, nose, mouth and throat: airway obscured by endotracheal tube Cardiovascular: Normal peripheral perfusion Respiratory: Ventilator settings reviewed Gastrointestinal: Non distended Musculoskeletal: No deformity Results & Data Results & Data ([facility]) Vital Signs (Past 12 Hours) Vital Signs Temp Pulse Resp BP Pulse Ox O2 Del Method FiO2 11/26/21 09:10 37.5 C 70 14 98 11/26/21 09:00 37.4 C 80 20 118/64 99 11/26/21 08:50 37.4 C 79 16 99 11/26/21 08:40 37.4 C 69 14 98 11/26/21 08:30 37.4 C 67 16 97 11/26/21 08:30 118/64 11/26/21 08:20 37.4 C 73 16 99 11/26/21 08:10 37.4 C 69 14 98 11/26/21 08:00 37.3 C 70 16 98 11/26/21 08:00 129/62 11/26/21 08:53 30 11/26/21 07:50 37.4 C 66 16 99 11/26/21 07:40 37.4 C 65 14 98 11/26/21 07:30 37.4 C 71 16 99 11/26/21 07:30 137/79 11/26/21 07:20 37.4 C 69 16 99 11/26/21 07:17 113/66 11/26/21 07:17 37.4 C 71 17 99 11/26/21 07:10 37.4 C 69 14 97 11/26/21 07:00 37.5 C 71 16 99 11/26/21 07:00 124/67 Mechanical Vent 11/26/21 06:50 37.5 C 64 16 98 11/26/21 06:40 37.5 C 65 14 98 11/26/21 06:30 37.5 C 63 16 98 11/26/21 06:20 37.5 C 66 16 99 11/26/21 06:10 37.5 C 67 14 98 11/26/21 06:00 37.5 C 68 16 98 11/26/21 06:00 117/61 11/26/21 05:50 37.6 C H 67 16 98 11/26/21 05:40 37.5 C 68 14 98 11/26/21 07:24 57 L 22 99 30 11/26/21 08:00 68 11/26/21 08:00 Mechanical Vent 11/26/21 05:30 37.5 C 68 16 98 11/26/21 05:30 134/65 11/26/21 05:20 37.5 C 70 16 99 11/26/21 05:10 37.5 C 66 14 98 11/26/21 05:00 37.5 C 65 16 98 11/26/21 05:00 128/67 11/26/21 04:50 37.5 C 66 18 99 11/26/21 04:40 37.5 C 65 16 98 11/26/21 04:56 16 11/26/21 04:30 37.5 C 66 18 98 11/26/21 04:30 123/62 11/26/21 04:20 37.5 C 68 18 99 11/26/21 04:10 37.5 C 67 16 99 11/26/21 04:00 37.5 C 69 18 99 11/26/21 04:00 118/63 11/26/21 03:50 37.5 C 70 18 99 11/26/21 03:40 37.5 C 70 16 98 11/26/21 03:30 37.5 C 69 18 11/26/21 03:30 112/59 L 11/26/21 03:20 37.4 C 70 18 98 11/26/21 03:10 37.4 C 67 16 99 11/26/21 03:00 37.3 C 69 18 98 11/26/21 03:00 138/68 11/26/21 02:50 37.3 C 71 18 99 11/26/21 02:40 37.3 C 72 16 97 11/26/21 02:30 37.2 C 68 18 98 11/26/21 02:30 118/63 11/26/21 02:20 37.2 C 68 18 98 11/26/21 02:10 37.2 C 70 16 98 11/26/21 02:00 37.2 C 63 18 11/26/21 01:50 37.1 C 69 18 98 11/26/21 01:40 37.1 C 71 16 98 11/26/21 01:30 37.1 C 67 18 11/26/21 01:30 118/61 11/26/21 01:20 37.1 C 69 18 98 11/26/21 01:10 37.0 C 70 16 98 11/26/21 01:00 37.0 C 70 18 98 11/26/21 00:50 36.9 C 70 18 97 11/26/21 00:40 36.8 C 71 16 98 11/26/21 00:31 122/72 11/26/21 00:31 36.8 C 65 16 95 11/26/21 00:30 36.8 C 70 18 98 11/26/21 00:20 36.7 C 71 18 99 11/26/21 00:10 36.6 C 68 16 99 11/26/21 00:01 36.6 C 70 16 100 11/26/21 00:01 165/80 H 11/26/21 00:00 36.6 C 70 18 100 11/25/21 23:50 36.7 C 65 18 100 11/25/21 23:40 36.7 C 64 15 100 11/25/21 23:30 36.6 C 62 18 11/25/21 23:30 135/74 11/25/21 23:20 36.6 C 65 18 100 11/25/21 23:10 36.6 C 69 18 100 11/25/21 23:00 36.7 C 67 18 100 11/25/21 23:00 132/70 11/25/21 22:50 36.8 C 70 18 98 11/25/21 22:40 36.9 C 74 18 98 11/25/21 22:30 37.0 C 79 18 100 11/25/21 22:30 94/63 L 11/26/21 02:45 66 18 98 30 11/26/21 01:00 70 11/26/21 00:32 Mechanical Vent 30 11/25/21 22:58 77 19 99 40 Critical Care Results & Data Vital Signs (Past 12 Hours) Vital Signs Temp Pulse Resp BP Pulse Ox O2 Del Method FiO2 11/26/21 09:10 37.5 C 70 14 98 11/26/21 09:00 37.4 C 80 20 118/64 99 11/26/21 08:50 37.4 C 79 16 99 11/26/21 08:40 37.4 C 69 14 98 11/26/21 08:30 37.4 C 67 16 97 11/26/21 08:30 118/64 11/26/21 08:20 37.4 C 73 16 99 11/26/21 08:10 37.4 C 69 14 98 11/26/21 08:00 37.3 C 70 16 98 11/26/21 08:00 129/62 11/26/21 08:53 30 11/26/21 07:50 37.4 C 66 16 99 11/26/21 07:40 37.4 C 65 14 98 11/26/21 07:30 37.4 C 71 16 99 11/26/21 07:30 137/79 11/26/21 07:20 37.4 C 69 16 99 11/26/21 07:17 113/66 11/26/21 07:17 37.4 C 71 17 99 11/26/21 07:10 37.4 C 69 14 97 11/26/21 07:00 37.5 C 71 16 99 11/26/21 07:00 124/67 Mechanical Vent 11/26/21 06:50 37.5 C 64 16 98 11/26/21 06:40 37.5 C 65 14 98 11/26/21 06:30 37.5 C 63 16 98 11/26/21 06:20 37.5 C 66 16 99 11/26/21 06:10 37.5 C 67 14 98 11/26/21 06:00 37.5 C 68 16 98 11/26/21 06:00 117/61 11/26/21 05:50 37.6 C H 67 16 98 11/26/21 05:40 37.5 C 68 14 98 11/26/21 07:24 57 L 22 99 30 11/26/21 08:00 68 11/26/21 08:00 Mechanical Vent 11/26/21 05:30 37.5 C 68 16 98 11/26/21 05:30 134/65 11/26/21 05:20 37.5 C 70 16 99 11/26/21 05:10 37.5 C 66 14 98 11/26/21 05:00 37.5 C 65 16 98 11/26/21 05:00 128/67 11/26/21 04:50 37.5 C 66 18 99 11/26/21 04:40 37.5 C 65 16 98 11/26/21 04:56 16 11/26/21 04:30 37.5 C 66 18 98 11/26/21 04:30 123/62 11/26/21 04:20 37.5 C 68 18 99 11/26/21 04:10 37.5 C 67 16 99 11/26/21 04:00 37.5 C 69 18 99 11/26/21 04:00 118/63 11/26/21 03:50 37.5 C 70 18 99 11/26/21 03:40 37.5 C 70 16 98 11/26/21 03:30 37.5 C 69 18 11/26/21 03:30 112/59 L 11/26/21 03:20 37.4 C 70 18 98 11/26/21 03:10 37.4 C 67 16 99 11/26/21 03:00 37.3 C 69 18 98 11/26/21 03:00 138/68 11/26/21 02:50 37.3 C 71 18 99 11/26/21 02:40 37.3 C 72 16 97 11/26/21 02:30 37.2 C 68 18 98 11/26/21 02:30 118/63 11/26/21 02:20 37.2 C 68 18 98 11/26/21 02:10 37.2 C 70 16 98 11/26/21 02:00 37.2 C 63 18 11/26/21 01:50 37.1 C 69 18 98 11/26/21 01:40 37.1 C 71 16 98 11/26/21 01:30 37.1 C 67 18 11/26/21 01:30 118/61 11/26/21 01:20 37.1 C 69 18 98 11/26/21 01:10 37.0 C 70 16 98 11/26/21 01:00 37.0 C 70 18 98 11/26/21 00:50 36.9 C 70 18 97 11/26/21 00:40 36.8 C 71 16 98 11/26/21 00:31 122/72 11/26/21 00:31 36.8 C 65 16 95 11/26/21 00:30 36.8 C 70 18 98 11/26/21 00:20 36.7 C 71 18 99 11/26/21 00:10 36.6 C 68 16 99 11/26/21 00:01 36.6 C 70 16 100 11/26/21 00:01 165/80 H 11/26/21 00:00 36.6 C 70 18 100 11/25/21 23:50 36.7 C 65 18 100 11/25/21 23:40 36.7 C 64 15 100 11/25/21 23:30 36.6 C 62 18 11/25/21 23:30 135/74 11/25/21 23:20 36.6 C 65 18 100 11/25/21 23:10 36.6 C 69 18 100 11/25/21 23:00 36.7 C 67 18 100 11/25/21 23:00 132/70 11/25/21 22:50 36.8 C 70 18 98 11/25/21 22:40 36.9 C 74 18 98 11/25/21 22:30 37.0 C 79 18 100 11/25/21 22:30 94/63 L 11/26/21 02:45 66 18 98 30 11/26/21 01:00 70 11/26/21 00:32 Mechanical Vent 30 11/25/21 22:58 77 19 99 40 Lab & Micro Results (Past 24 Hours) RBC 3.42 M/uL (3.93-5.22) L 11/26/21 WBC 12.82 K/ul (4.8-10.8) H 11/26/21 Hgb 11.0 g/dl (12.0-16.0) L 11/26/21 Hct 31.7 % (34.1-44.9) L 11/26/21 MCV 92.7 fL (80.0-100.0) 11/26/21 MCH 32.2 pg (25.0-34.0) 11/26/21 MCHC 34.7 g/dL (32.0-36.0) 11/26/21 RDW Standard Deviation 40.9 fL (36.4-46.3) 11/26/21 RDW Coefficient of Variation 12.0 % (11.5-14.5) 11/26/21 Plt Count 265 K/uL (130-400) 11/26/21 MPV 8.7 fL (9.4-12.3) L 11/26/21 Neutrophils (%) (Auto) 69.4 % 11/26/21 Lymphocytes (%) (Auto) 22.5 % 11/26/21 Monocytes # (Auto) 0.78 K/uL (0.24-0.82) 11/26/21 Eosinophils # (Auto) 0.16 K/uL (0-0.50) 11/26/21 Immature Granulocyte % (Auto) 0.6 % 11/26/21 Neutrophils # (Auto) 8.88 K/uL (1.4-6.5) H 11/26/21 Lymphocytes # (Auto) 2.89 K/uL (1.2-3.4) 11/26/21 Monocytes # (Auto) 0.78 K/uL (0.24-0.82) 11/26/21 Eosinophils # (Auto) 0.16 K/uL (0-0.50) 11/26/21 Basophils # (Auto) 0.03 K/uL (0-0.2) 11/26/21 Immature Granulocyte # (Auto) 0.08 K/uL (0.00-0.02) H 11/26 Na 130 mmol/L (136-145) L 11/26/21 K 3.0 mmol/L (3.5-5.1) L 11/26/21 Cl 98 mmol/L (98-107) 11/26/21 CO2 23 mmol/L (21-32) 11/26/21 Anion Gap 9 (3-11) 11/26/21 BUN 16 mg/dl (6-23) 11/26/21 Creatinine 1.10 mg/dl (0.6-1.2) 11/26/21 Estimated GFR ( Amer) 59.3 ml/min 11/26/21 Estimated GFR (Non-Af Amer) 51.2 ml/min 11/26/21 BUN/Creatinine Ratio 14.5 (10-20) 11/26/21 Glu 168 mg/dl (70-99(Fasting)) H 11/26/21 Ca 8.4 mg/dl (8.5-10.1) L 11/26/21 Phosphorus Level 2.2 mg/dl (2.5-4.9) L 11/26/21 Total Bilirubin 1.3 mg/dl (0.2-1.0) H 11/26/21 AST 34 U/L (13-39) 11/26/21 ALT 36 U/L (7-52) 11/26/21 Alkaline Phosphatase 58 U/L (34-104) 11/26/21 TP 5.9 gm/dl (6.0-8.3) L 11/26/21 Albumin 3.7 gm/dl (3.4-5.0) 11/26/21 Globulin 2.2 gm/dl (2.5-4.0) L 11/26/21 Albumin/Globulin Ratio 1.7 (0.9-2) 11/26/21 Mg 2.1 mg/dl (1.7-2.4) 11/26/21 05:15 Calcium Level 8.4 mg/dl (8.5-10.1) L 11/26/21 05:15 Prothromb Time International Ratio 1.0 (0.9-1.1) 11/25/21 22:4 3 Sina Test Pass 11/26/21 04:50 Diagnostic Findings (Past 24 Hours) Head CT 11/25/21 13:[address] DOSE: 1459.56 mGycm HISTORY: Confusion. fall, headache TECHNIQUE: Multiaxial CT images of the head were performed without the use of intravenous contrast. Automated exposure control was utilized for this study. A dose lowering technique was utilized adhering to the principles of ALARA. Comparison: Head CT 11/23/2021. Findings: The paranasal sinuses and mastoid air cells are clear. The calvarium and skull base are intact. The ventricles and sulci are within normal limits. There is no mass, hematoma, midline shift, or acute infarct. Impression: No acute intracranial abnormality. ACT 112: Negative or not required by law. Electronically signed by: Moris Ann M.D. 11/25/2021 2:37 PM Wrist X-Ray 11/25/21 13:53 XR wrist RT min 3V routine CLINICAL HISTORY: fall, right wrist pain COMPARISON STUDY: None. FINDINGS: Soft tissue swelling within the right wrist. No fracture or dislocation. 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 There is also mild osteoarthritis at the radiocarpal joint. IMPRESSION: Soft tissue swelling within the right wrist. No acute fractures. ACT 112: Negative or not required by law. Electronically signed by: Moris Ann M.D. 11/25/2021 2:[address] 11/25/21 21:31 CT SCAN OF THE BRAIN WITHOUT IV CONTRAST CLINICAL HISTORY: Seizure. Cardiac arrest. COMPARISON STUDY: CT of the brain performed earlier the same day 11/25/2021. TECHNIQUE: Unenhanced axial CT scan of the brain is performed from the vertex to the skull base. A dose lowering technique was utilized adhering to the principles of ALARA. CT DOSE: 823.12 mGy.cm FINDINGS: An endotracheal tube is noted on the manager transit tomogram. Brain parenchyma: There is age-related involutional change noting minimal subcortical and periventricular microangiopathic disease. There is no hemorrhage, mass effect, or evidence of acute territorial ischemia by CT criteria. Ramos-white matter differentiation is preserved. No extra-axial fluid collection is seen. Ventricles, sulci, cisterns: Prominent secondary to involutional change. Intracranial vasculature: There is atherosclerotic calcification of the cavernous carotid arteries. Calvarium: Unremarkable. Sinuses and mastoids: The visualized paranasal sinuses are clear. The mastoid air cells are well pneumatized. Orbits: The bony orbits are grossly intact. There is a right ocular lens implant. IMPRESSION: There is no hemorrhage, mass effect, or evidence of acute territorial ischemia by CT criteria. ACT 112: Negative or not required by law. Electronically signed by: Sridhar Sifuentes M.D. 11/26/2021 6:49 AM Chest X-Ray 11/25/21 21:34 SINGLE VIEW CHEST CLINICAL HISTORY: Respiratory arrest. Intubation. FINDINGS: An AP, portable, supine chest radiograph is compared to study dated 11/23/2021. An endotracheal tube has been placed. The tip projects approximately 3.5 cm above the regino. The cardiomediastinal silhouette is unremarkable. There is mild elevation of the right hemidiaphragm with associated atelectasis. The lungs and pleural spaces are otherwise clear. No pneumothorax is seen. The skeletal structures are osteopenic. The bony thorax is grossly intact. IMPRESSION: 1. An endotracheal tube has been placed as above. 2. The lungs are clear. ACT 112: Negative or not required by law. Electronically signed by: Sridhar Sifuentes M.D. 11/26/2021 8:30 AM KUB X-Ray 11/25/21 22:07 KUB CLINICAL HISTORY: Enteric tube placement. FINDINGS: An AP, portable, supine abdominal radiograph is obtained. No prior studies are available for comparison at the time of dictation. There is a nonobstructed abdominal bowel gas pattern. Gas is seen throughout the colon. An enteric tube has been placed. The tip projects below the diaphragm over the mid stomach. No evidence of intraperitoneal free air is seen on this supine image. There are no abnormal abdominal calcifications. The skeletal structures are osteopenic and appear intact. Lumbosacral spondylosis is observed. IMPRESSION: 1. An enteric tube has been placed as above. 2. There is no radiographic evidence of bowel obstruction Electronically signed by: Sridhar Sifuentes M.D. 11/26/2021 8:31 AM I & O Totals 24 Hours 11/25/21 11/26/21 11/27/21 06:59 06:59 06:59 Intake Total 2835 / 2835 619.167 / 865.893 6476.817 / 1271.817 Output Total 350 / 350 700 / 700 175 / 175 Balance 2485 / 2485 -80.833 / -80.833 1096.817 / 1096.817 Cumulative 11/23/21 10:38 thru 11/26/21 08:00 Intake Total 7375.984 Output Total 1650 Balance 5725.984 RT Ventilator Mngmt (Last Documented) Ventilator Ordered Settings Ventilator Support Mode Assist Control 11/26/21 08:53 Respiratory Rate 14 11/26/21 09:10 Ventilator Tidal Volume 400 11/26/21 08:53 Setting Minute Ventilation 7.2 11/26/21 07:24 Positive End Expiratory 5 11/26/21 08:53 Pressure Fraction of Inspired Oxygen 30 11/26/21 08:53 Machine Comment found on 30% 11/26/21 02:45 Ventilator - PT Measurements Respiratory Rate 14 Exhaled Tidal Volume 455 Minute Ventilation 7.2 Peak Inspiratory Airway 20 Pressure Plateau Pressure 13.7 Respiratory Cycle Inspiratory: 1:2.8 Expiratory Ratio Inspiratory Phase Time 1 End-Tidal CO2 30 Static Lung Compliance 52.30 Dynamic Lung Compliance 30.33 Normal Static Lung Compliance 47.00 Coding Level of Care Code Critical Care 1st 30-74 mins Diagnoses Cardiac arrest I46.9 Leukocytosis D72.829 Acute encephalopathy G93.40 Hyperbilirubinemia E80.6 GABI (acute kidney injury) N17.9 Hypertension I10 Diabetes E11.9 Hyponatremia E87.1 Psychosis F29
[2021-11-26] MEDS ORDERED: GADOBUTROL 30ML VIAL IV ONE (10:59)
[2021-11-26] MEDS: LORazepam 0.5 MG TAB PO SCH ×3 (11:12→20:38)
--- NOTE | 2021-11-26 11:18 | Magnetic Resonance Report ---
MRI OF THE BRAIN COMBO CLINICAL HISTORY: Seizure. COMPARISON STUDY: CT of the brain dated 11/25/2021. TECHNIQUE: MRI of the brain was performed utilizing various T1 and T2-weighted sequences in the axial , sagittal, and coronal planes. Contrast-enhanced sequences were acquired following the administratio n of 7.8 cc of Gadavist. FINDINGS: Brain parenchyma: There is age-related involutional change noting minimal microangiopathic disease. T here is no hemorrhage or mass effect. There is no restricted diffusion to suggest acute ischemia. No enhancing mass lesion is identified on the postcontrast images. Ramos-white matter differentiation is preserved. No extra-axial fluid collection is seen. The cerebellar tonsils are normal in configuratio n. The hippocampi are normal and symmetric. Ventricles, sulci, and cisterns: Prominent secondary to involutional change. Pituitary and sella: Unremarkable. Intracranial vasculature: Normal flow voids are maintained at the skull base. Orbits: The bony orbits are grossly intact. Orbital contents are normal in appearance noting a right ocular lens implants. Sinuses and mastoids: There is trace mucosal thickening ethmoid sinuses. The remaining paranasal sinu ses and the mastoid air cells are clear. A small amount of layering fluid is noted in the pharynx. Calvarium: Unremarkable. Cervical cord: Partially visualized cervical spinal cord is normal in morphology and signal intensity . IMPRESSION: No intracranial abnormality is identified. ACT 112: Negative or not required by law. Electronically signed by: Sridhar Sifuentes M.D. 11/26/2021 11:15 AM
[2021-11-26] MEDS ORDERED: Nursing to Pharmacy Communication SCH (12:15)
--- NOTE | 2021-11-26 12:48 | Electrocardiogram Report ---
Test Reason : Blood Pressure : / mmHG Vent. Rate : 067 BPM Atrial Rate : 067 BPM P-R Int : 192 ms QRS Dur : 080 ms QT Int : 394 ms P-R-T Axes : 021 -01 036 degrees QTc Int : 416 ms Normal sinus rhythm Low voltage QRS Septal infarct (cited on or before 25-NOV-2021) Abnormal ECG When compared with ECG of 23-NOV-2021 11:02, No significant change was found Confirmed by Karri Gonzalez ([id number]) on 11/26/2021 12:48:17 PM Referred By: REFERRED SELF Confirmed By:Karri Gonzalez
--- NOTE | 2021-11-26 13:08 | XCELERA ---
[id number]
[2021-11-26] MEDS ORDERED: CARBOHYDRATES FOR HYPOGLYCEMIA PO PRN (16:04)
[2021-11-26] MEDS ORDERED: DEXTROSE 50% 50 ML SYRINGE IV PRN (16:04)
[2021-11-26] MEDS ORDERED: GLUCOSE 10 TAB/TUBE PO PRN (16:04)
[2021-11-26] MEDS ORDERED: GLUCAGON FOR INJ 1 MG VIAL SQ PRN (16:04)
[2021-11-26] MEDS ORDERED: GLUCOSE 40% GEL 15 GM TUBE PO PRN (16:04)
[2021-11-26] MEDS: VALPROATE SOD 250 MG in DEXTROSE 5% 50 ML IV SCH ×2 (16:14→21:05)
[2021-11-26] MEDS: INSULIN ASPART PER UNIT SC SCH ×2 (16:28→20:10)
[2021-11-26] MEDS: ACETAMINOPHEN 325 MG TAB PO PRN (17:36)
[2021-11-26] MEDS: ATORVASTATIN 20 MG TAB PO SCH (20:38)
[2021-11-27] MEDS: SODIUM CHLORIDE 0.9% 1000ML 1,000 ML IV SCH ×2 (01:55→10:54)
[2021-11-27] MEDS: ACETAMINOPHEN 325 MG TAB PO PRN ×2 (04:16→17:30)
[2021-11-27] MEDS: VALPROATE SOD 250 MG in DEXTROSE 5% 50 ML IV SCH (04:17)
[2021-11-27 05:47] LABS: Basophils # (auto) 0.04 K/uL (0-0.2); Basophils % (auto) 0.4 %; Eosinophils # (auto) 0.36 K/uL (0-0.50); Eosinophils % (auto) 3.3 %; Hematocrit (blood only) 28.5 % (34.1-44.9); Hemoglobin 9.8 g/dl (12.0-16.0); Immature Granulocytes # (auto) 0.05 K/uL (0.00-0.02); Immature Granulocytes % (auto) 0.5 %; Lymphocytes # (auto) 2.07 K/uL (1.2-3.4); Lymphocytes % (auto) 19.1 %; Mean Corpuscular Hgb Conc 34.4 g/dL (32.0-36.0); Mean Corpuscular Volume 93.1 fL (80.0-100.0); Mean Platelet Volume 8.8 fL (9.4-12.3); Monocytes # (auto) 0.64 K/uL (0.24-0.82); Monocytes % (auto) 5.9 %; Neutrophils # (auto) 7.65 K/uL (1.4-6.5); Neutrophils % (auto) 70.8 %; Platelet Count 227 K/uL (130-400); RDW Standard Deviation 40.8 fL (36.4-46.3); Red Blood Count 3.06 M/uL (3.93-5.22); White Blood Count 10.81 K/ul (4.8-10.8)
[2021-11-27 06:16] LABS: Albumin Globulin Ratio 1.5 (0.9-2); Albumin Level 3.4 gm/dl (3.4-5.0); BUN Creatinine Ratio 7.4 (10-20); Bilirubin,Total 0.8 mg/dl (0.2-1.0); Calcium 7.9 mg/dl (8.5-10.1); Creatinine Clr Calc Pharmacy 59.8 ml/min; Est GFR (African American) 70.8 ml/min; Est GFR (Non-African American) 61.1 ml/min; Globulin 2.2 gm/dl (2.5-4.0); Magnesium 1.5 mg/dl (1.7-2.4); Phosphorus 3.6 mg/dl (2.5-4.9); Potassium 3.9 mmol/L (3.5-5.1); Total Protein 5.6 gm/dl (6.0-8.3)
[2021-11-27] MEDS ORDERED: POTASSIUM CHLORIDE CRTAB 20 MEQ TABCR PO STA (06:35)
[2021-11-27] MEDS: MAGNESIUM SULFATE / D5W 1 GM/100 ML BAG IV SCH ×3 (07:33→12:40)
[2021-11-27] MEDS: DOCUSATE SODIUM/SENNA 50/8.6MG TAB PO SCH (07:33)
[2021-11-27] MEDS: HEPARIN SOD 5,000 UNIT/0.5 ML VIAL SQ SCH (07:34)
[2021-11-27] MEDS: INSULIN ASPART PER UNIT SC SCH ×4 (07:35→21:45)
[2021-11-27] MEDS: LORazepam 0.5 MG TAB PO SCH ×3 (07:36→21:43)
[2021-11-27 07:51] LABS: Estimated Average Glucose 154 mg/dl
--- NOTE | 2021-11-27 08:48 | Critical Care Progress Note ---
Date of Service November 27, 2021 Assessment & Plan (1) Acute encephalopathy: (2) Seizure: (3) Benzodiazepine withdrawal: (4) GABI (acute kidney injury): Plan 71-year-old female with a past medical history of anxiety and depression presenting to the hospital due to GABI. She was found to have benzodiazepine withdrawal and had a seizure on the floor. She was intubated. There was concern of cardiac arrest at 1 point. She has now much improved and off the ventilator. Neurologic: Avoid agents that could lower her seizure threshold including antipsychotics. Continue benzodiazepines. Appreciate neurology input. Valproic acid per neurology recommendations. Pulmonary: No issues at present. Extubated 11/26/2021. Cardiovascular: Hemodynamically stable. Continue to monitor telemetry. Echo from 11/26/2021 reviewed with a normal LVEF of 60 to 65%. Mild mitral regurgitation. Continue home antihypertensives. Gastrointestinal: Initiate low-carb and cardiac diet. LFTs unremarkable. Renal: Mild hyponatremia. This should correct with her diet and with minimizing SSRIs and SNRIs. Replacing electrolytes per ICU protocol. Infectious disease: No issues. Hematologic: Mild hemodilution all anemia. Follow hemoglobin. Endocrine: TSH normal. Hemoglobin A1c 7. Continue sliding scale. VTE prophylaxis: Lovenox 40 mg subcu CODE STATUS: Full code Family at bedside: Not available at bedside. Disposition: Downgrade out of the ICU. Discussed with bedside nursing and neurologist. Thank you for allowing us to participate in the care of this patient. Admission and Anticipated Discharge Date Admission Date: November 25, 2021 Subjective Patient seen and examined at bedside. She denies any chest pain or shortness of breath. She had an uneventful morning. She is eager to get an IV out of her hand due to pain and itchiness. No significant fevers or chills. She endorses taking too many pills of Ativan and Seroquel at home due to severe anxiety. Review of Systems Review of Systems: All systems reviewed & are unremarkable except as noted in HPI & below Physical Exam Physical Exam: Constitutional: Mildly anxious appearing female. No apparent distress. Lying in bed. Eyes: Pupils are equal round and reactive to light. Conjunctivae are normal. Anicteric sclera. Ears nose, mouth and throat: Deferred. Neck: Trachea is midline. Visual inspection is normal. Respiratory: Clear to auscultation bilaterally. No use of accessory muscles. No significant clubbing noted. Cardiovascular: Regular rate and rhythm. No murmurs. No edema. Gastrointestinal: Normal bowel sounds, soft, nontender and nondistended. No hepatosplenomegaly noted. Musculoskeletal: No cyanosis. Patient is able to move all extremities. Skin: No rashes, warm dry and intact. Neurologic: No obvious focal neurological deficits seen. Psychiatric: Alert and oriented. Anxious. Results & Data Results & Data ([facility]) Vital Signs (Past 12 Hours) Vital Signs Temp Pulse Resp BP Pulse Ox O2 Del Method O2 Flow Rate 11/27/21 05:01 110/70 11/27/21 05:01 37.6 C H 82 18 94 Nasal Cannula 3 11/27/21 05:00 37.6 C H 88 24 94 11/27/21 04:00 37.7 C H 78 17 97 11/27/21 04:00 129/63 11/27/21 03:00 37.6 C H 84 17 97 11/27/21 02:00 37.6 C H 85 21 97 11/27/21 02:00 119/61 11/27/21 01:00 37.5 C 73 14 97 Nasal Cannula 3 11/27/21 01:00 98/68 L 11/27/21 00:00 37.4 C 73 15 97 11/27/21 00:00 119/64 11/26/21 23:00 37.4 C 69 14 96 11/26/21 23:00 118/53 L 11/26/21 22:00 37.4 C 74 14 97 11/26/21 22:00 113/56 L 11/27/21 00:04 82 11/26/21 21:02 37.6 C H 96 Nasal Cannula 3 11/26/21 21:02 119/50 L 11/26/21 21:00 37.5 C 84 L Room Air Coding Level of Care Code 47400 Subseq Hosp Care Lvl 3 Diagnoses Acute encephalopathy G93.40 Seizure R56.9 Benzodiazepine withdrawal F13.939 GABI (acute kidney injury) N17.9
--- NOTE | 2021-11-27 09:24 | Neurology Consultation ---
Date of Consultation November 27, 2021 Assessment & Plan (1) Seizure: (2) Acute encephalopathy: (3) Benzodiazepine withdrawal: (4) Hyponatremia: (5) Psychosis: Plan Patient has a history of depression and anxiety. I am not certain of the history of psychosis but there have been note of some paranoid ideation. She was admitted with an acute encephalopathy and probably had a seizure-like episode in the evening of November 25. the etiology of her acute mental status changes was likely multifactorial, including benzodiazepine withdrawal from discontinuing lorazepam, the addition of multiple medications including donepezil, levetiracetam, and venlafaxine. Her Seroquel dose was likely increased. She had some hyponatremia and was very dehydrated on admission. Renal function is normal currently. She does have some anemia from hydration however. Hydrochlorothiazide and carvedilol can be associated with hyponatremia. Rarely, amlodipine , donepezil, and venlafaxine can cause hyponatremia. Her sodium is normal today. MRI of the brain was unremarkable for any significant abnormalities, including frontal or temporal lobe atrophy. Her seizure like activity was most likely associated with the medication and benzodiazepine withdrawal. She is quite stable today. She has been loaded on valproic acid which can act as a mood stabilizer has well as an anticonvulsant. Recommendations: 1. EEG is pending. 2. Agree with discontinuing donepezil, venlafaxine, levetiracetam, olanzapine, and quetiapine 3. continue valproic acid 500 mg p.o. twice daily, checking a trough level each morning for the next 3 days. 4. Control glucose as you are doing, aiming to lower her hemoglobin A1c from 7 down to closer to 6. 5. Continue blood pressure control as you are doing. 6. Increase activity as able. Overall, I spent a total of 120 minutes with this case including review of records, review of MRI films, direct evaluation the patient at bedside, and discussing the case with the patient and RN at bedside, and Dr. aCntu including differential diagnosis and treatment options. History of Present Illness Reason for Consultation: Patient is a 71-year-old, who I was asked to see at the request of Dr. Wilkins, for neurologic consultation regarding acute encephalopathy and possible seizure. Requesting Physician: Dr. Wilkins Attending Physician: Chuy Cantu History of Present Illness patient has a 25+ year history of hypertension, treated with hydrochlorothiazide, carvedilol, potassium, lisinopril, and amlodipine. She has a 10 year history of diabetes currently on metformin and Januvia. patient tells me that she has never been on donepezil or a medication for memory problems. She has been on atorvastatin for dyslipidemia. The patient, according to history I gathered from a psychiatry note (who got the information from her ) states that the patient had ECT in her 20s because of depression. She has had some issues with depression intermittently over last 15 years seeing Psychiatry and having been on certain medications. She has had a history of significant depression, anxiety, and stress stemming back several years ago from interactions with a dysfunctional neighbor. she can give significant detail about what this man has said and done to her. She moved because of the neighbor but there are still issues. Her stated that the patient has stopped cooking and cleaning over the last 3-6 months, tanika roy decreased motivation , not doing what she typically enjoy doing, and crying. She lives in [place], [place] and currently sees a psychiatrist, Dr. Lynne Dooley in [place], [place], who currently was giving her 0.5 mg lorazepam which the patient took 3 to 4 times a day, as well as a low-dose (uncertain amount) of Seroquel which helped her sleep and stay calm. Because of increased stress and depression, she was recently admitted to the [facility]. Apparently they were giving her Keppra 250 mg at bedtime, venlafaxine 75 mg the morning and 37.5 in the evening, donepezil 5 mg a day, Seroquel 50 mg at bedtime and 25 as needed at other times, and they discontinued her Ativan. She became increasingly confused, paranoid and psychotic with her thinking and they noted a low sodium. they sent her to our emergency room. When she arrived to the emergency room November 23, afebrile with a blood pressure 134/73 and O2 sat 100%. Pulse was 77 regular respiratory rate was 16. She was described as not being able to answer questions and not being overly cooperative including pulling out IVs. Sodium was 129, BUN 44 head creatinine 2.0. Glucose was 165. White count was elevated at 12.4 with increased neutrophils. Chest x- ray and CT scan of the head were unremarkable. She remained confused. On the evening of November 25, the patient was found to be unresponsive and may have had some seizure activity prior to this. She ended up being intubated. She was extubated on the after her MRI and sedation was stopped. MRI of the brain shows some very mild atrophy and white matter changes but otherwise was unremarkable with no significant findings with and without contrast. I reviewed these films. Today, the patient is more awake and alert. She denies pain or headache, dizziness or lightheadedness, blurry vision, confusion, or any focal weakness or numbness. Laboratory studies today revealed a sodium of 135 with a glucose of 127. BUN was 7 and creatinine 0.95. Calcium was mildly low at 7.9 and magnesium was low at 1.5. She has some anemia with hydration with hemoglobin 9.8 and hematocrit 28.5. She is afebrile at 37.6 and blood pressure 110/70. Allergies Allergy/AdvReac Type Severity Reaction Status Date / Time ciprofloxacin Allergy Intermediate itching Unverified 11/23/21 10:55 Home Medications Medication Instructions Recorded Confirmed Type acetaminophen 325 mg tablet 650 mg PO Q4H PRN Pain 11/23/21 11/23/21 History amlodipine 5 mg tablet 10 mg PO QAM 11/23/21 11/23/21 History atorvastatin 20 mg tablet 20 mg PO HS 11/23/21 11/23/21 History carvedilol 3.125 mg tablet 12.5 mg PO BIDM 11/23/21 11/23/21 History donepezil 5 mg tablet 5 mg PO HS 11/23/21 11/23/21 History hydrochlorothiazide 25 mg tablet 25 mg PO QAM 11/23/21 11/23/21 History levetiracetam 250 mg tablet 250 mg PO HS 11/23/21 11/23/21 History lisinopril 20 mg tablet 40 mg PO QAM 11/23/21 11/23/21 History metformin 500 mg tablet 1,000 mg PO BID 11/23/21 11/23/21 History potassium chloride 10 mEq 10 meq PO BID 11/23/21 11/23/21 History capsule,extended release quetiapine 25 mg tablet 12.5 mg PO Q4H PRN Agitation 11/23/21 11/23/21 History quetiapine 50 mg tablet 50 mg PO HS 11/23/21 11/23/21 History sitagliptin 50 mg tablet (Januvia) 50 mg PO BID 11/23/21 11/23/21 History venlafaxine 37.5 mg 37.5 mg PO DAILY@1300 11/23/21 11/23/21 History capsule,extended release 24 hr venlafaxine 75 mg tablet,extended 75 mg PO QAM 11/23/21 11/23/21 History release 24 hr lorazepam 0.5 mg tablet 0.5 mg PO TID 11/26/21 11/26/21 History Patient History Medical History Acute dehydration Acute kidney injury Benzodiazepine withdrawal Diabetes Hypertension Hyponatremia Psychosis Surgical History (Updated 11/27/21 @ 09:35 by Gallo Hurley MD) S/P cataract surgery Family History Father , age 65 of an DE Myocardial infarction Mother , age 86 of congestive heart failure Heart disease Social History Smoking Status: Never smoker Hx Alcohol Use: No Hx Substance Use: Yes (unknown) Preferred Language: Mozambican Communication Ability: Impaired Millwork 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 Feels Safe at Home: Yes Assistive Devices: Cane Review of Systems Constitutional: no fever, no fatigue and no weakness Eyes: no diplopia, no eye pain and no worsening vision Ear, Nose, Mouth, Throat: no ear pain, no tinnitus, no hearing loss, no dizziness, no snoring, no hoarseness and no dysphagia Respiratory: no cough and no dyspnea Cardiovascular: no chest pain, no palpitations and no lightheadedness Gastrointestinal: no abdominal pain, no nausea and no vomiting Genitourinary: no dysuria, no urinary frequency and no urinary incontinence Musculoskeletal: no back pain, no neck pain, no radicular pain, no joint pain and no myalgia Integumentary: no rash and no lesions Neurologic: no gait abnormality, no localized weakness, no generalized weakness, no tingling, no numbness, no tremor(s), no abnormal movements, no headache(s), no abnormal speech, no confusion and no memory loss Psychiatric: + depression and + anxiety; no irritability, no difficulty concentrating, no confusion and no hallucinations Endocrine: no fatigue and no flushing Hematologic / Lymphatic: no easy bleeding and no easy bruising Allergy / Immunological: no urticaria and no problem reported Exam (Neuro) Physical Exam: The patient is right-handed. The patient is awake, alert, and attentive. Speech is normal without any aphasia or dysarthria. The patient can name objects, repeat phrases, and has normal spontaneous speech. Mentation and thought processes are intact, with orientation to person, age, month, year. her speech is not pressured and she does not have a flight of ideas but she will go on talking about a topic and even repeating some of the things she says. She is not overtly perseverating however. Attention and concentration are reasonably normal. Mood and affect are normal and appropriate. General appearance and grooming are normal. Short and long-term memory seem very intact but I do not have any way to verify what she is saying. The discs are sharp with positive venous pulsations bilaterally. There are no exudates, hemorrhages, or blood vessel changes seen. Pupils are 4 mm bilaterally and reactive to light. Extraocular eye muscles are intact without nystagmus. Visual acuity and visual calabrese seem normal grossly to confrontation. There are no deficits to sensation in the face in all 3 distributions of the fifth cranial nerve bilaterally. Corneal reflexes are positive bilaterally. Facial strength and symmetry was normal bilaterally. Hearing seems normal bilaterally. Palate moves well without asymmetry. There is normal sternocleidomastoid and trapezius (shoulder shrug) strength bilaterally. Tongue is midline with good strength bilaterally. Neck has a full range of motion without discomfort. There are no cervical bruits bilaterally. There are no cranial or ocular bruits. Heart is without murmur. There is a regular rhythm and rate. Cervical, thoracic, and lumbar spine are nontender to palpation. Gait is not tested but stance sitting up in bed is normal. She can walk from bed to commode with assistance. With outstretched arms there is no drift. There are no resting tremors. There is no ataxia with finger to nose testing. She does have some mild postural and action tremor in the hands bilaterally. There is good facility in the hands. No other abnormal involuntary movements are noted. Motor strength is 5/5 diffusely in the arms bilaterally including deltoids, biceps, triceps, brachioradialis, wrist flexors and extensors, director of orthopedics, and intrinsic hand muscles. Motor strength is 5/5 diffusely in the legs bilaterally including hip flexors, quadriceps, hamstrings, gastrocnemius, tibialis anterior, tibialis posterior, and Peroneii muscles. Toe extensors are normal and there is good bulk in the extensor digitorum brevis muscles bilaterally. The limbs have good tone without rigidity or spasticity. There is no atrophy noted in the muscles. Muscle bulk is normal, there is no tenderness to palpation, no myotonia to percussion, and no fasciculations seen. Sensory examination is intact to touch and pin throughout all 4 limbs diffusely. Reflexes are 2/4 in the biceps, triceps, brachioradialis, quadriceps, and Achilles tendons bilaterally. There is no clonus bilaterally. Toes are downgoing with plantar stimulation bilaterally. Peripheral pulses are present and of normal quality distally in all 4 limbs. There is no peripheral edema noted in the limbs. Results & Data ([facility]) Vital Signs (Past 12 Hours) Vital Signs Temp Pulse Resp BP Pulse Ox O2 Del Method O2 Flow Rate 11/27/21 05:01 110/70 11/27/21 05:01 37.6 C H 82 18 94 Nasal Cannula 3 11/27/21 05:00 37.6 C H 88 24 94 11/27/21 04:00 37.7 C H 78 17 97 11/27/21 04:00 129/63 11/27/21 03:00 37.6 C H 84 17 97 11/27/21 02:00 37.6 C H 85 21 97 11/27/21 02:00 119/61 11/27/21 01:00 37.5 C 73 14 97 Nasal Cannula 3 11/27/21 01:00 98/68 L 11/27/21 00:00 37.4 C 73 15 97 11/27/21 00:00 119/64 11/26/21 23:00 37.4 C 69 14 96 11/26/21 23:00 118/53 L 11/26/21 22:00 37.4 C 74 14 97 11/26/21 22:00 113/56 L 11/27/21 00:04 82 PG Care Time/CCT Total # of Minutes Spent Total Time Spent with Patient: Total time spent is greater than 50% in coordination of care (as documented) at patient's floor/unit and/or counseling patient: Coding Level of Care Code 60404 Initial Inpt Care Lvl 3 Diagnoses Seizure R56.9 Acute encephalopathy G93.40 Benzodiazepine withdrawal F13.939 Hyponatremia E87.1 Psychosis F29 Time Spent (min) 120 Comment Add modifiers as able
[2021-11-27] MEDS: VALPROIC ACID SOLN 500 MG/10 ML UDC PO SCH ×2 (10:06→21:43)
--- NOTE | 2021-11-27 10:26 | Psychiatric Progress Note ---
Date of Service November 27, 2021 Impression / Recommendations Impression 71 yo admitted medically as transfer from [place] due to concern for worsening mental status changes with significant hyponatremia and GABI. Diagnostically consistent with delirium likely from hyponatremia versus benzo withdrawal versus recent steroid use superimposed on worsening recent confusion and paranoia with concern for newer onset cognitive decline and prefrontal dysfunction. as per Dr. Garcia above, improving (1) Benzodiazepine withdrawal: (2) Seizure: (3) Acute encephalopathy: Plan return to [facility] to continue acute inpatient psychiatric hospitalization when medically cleared. Interval History Identifying Information 71 yo woman with history of possible dementia and possible BPAD [facility] for altered mental status and GABI. Psychiatry initially consulted for medication recommendations, patient's keppra, donepezil, effexor were discontinued in setting of possible benzodiazepine withdrawal seizure. Patient then extubated, loaded on Depakote and restarted on lower dose Ativan. Chief Complaint "I feel like reading." Review of Systems Notes patient has some swelling on former venipuncture site, denies N/V. apparently ambulates to commode. Subjective Subjective Patient was seen & assessed and interval progress reviewed with nursing. Patient cooperative with EEG, formal read pending. MS improved and likely placement on regular med floor soon pending return to [facility]. She seems aware of her medical course thus far at [facility] and indicates she would like to continue treatment for depression and anxiety/return to [facility]. Physical Exam Psychiatric Orientation: alert Apperance: appropriately groomed Eye Contact: + fair eye contact Motor Behavior: no abnormal motor movements Speech: normal rate/rhythm/volume of speech Affect: + depressed affect Mood: + depressed mood Thought Process: + concrete thought process Thought Content: reality based without delusions Hallucinations: no auditory hallucinations and no visual hallucinations Cognition: attention grossly intact and language grossly intact Vital Signs (Past 24 Hours) Last Vital Signs Temp 37.4 C 11/27/21 08:00 Pulse 84 11/27/21 10:00 Resp 20 11/27/21 10:00 BP 112/80 11/27/21 10:00 Pulse Ox 99 11/27/21 10:00 O2 Del Method 11/27/21 10:00 O2 Flow Rate 2 11/27/21 10:00 FiO2 30 11/26/21 08:53 Results & Data ([facility]) Laboratory Results Laboratory Results - last 24 hr 11/26/21 11/26/21 11/27/21 16:21 19:42 05:36 WBC 10.81 H RBC 3.06 L Hgb 9.8 L Hct 28.5 L MCV 93.1 MCH 32.0 MCHC 34.4 RDW Std Deviation 40.8 RDW Coeff of Farida 12.0 Plt Count 227 MPV 8.8 L Immature Gran % (Auto) 0.5 Neut % (Auto) 70.8 Lymph % (Auto) 19.1 [place] % (Auto) 5.9 Eos % (Auto) 3.3 Baso % (Auto) 0.4 Neut # (Auto) 7.65 H Lymph # (Auto) 2.07 [place] # (Auto) 0.64 Eos # (Auto) 0.36 Baso # (Auto) 0.04 Immature Gran # (Auto) 0.05 H Sodium Potassium Chloride Carbon Dioxide Anion Gap BUN Creatinine Est Cr Clr Drug Dosing Est GFR ( Amer) Est GFR (Non-Af Amer) BUN/Creatinine Ratio Glucose POC Glucose 144 H 111 H Estimat Average Glucose Hemoglobin A1c Calcium Phosphorus Magnesium Total Bilirubin AST ALT Alkaline Phosphatase Total Protein Albumin Globulin Albumin/Globulin Ratio 11/27/21 11/27/21 11/27/21 05:36 05:36 07:19 WBC RBC Hgb Hct MCV MCH MCHC RDW Std Deviation RDW Coeff of Farida Plt Count MPV Immature Gran % (Auto) Neut % (Auto) Lymph % (Auto) [place] % (Auto) Eos % (Auto) Baso % (Auto) Neut # (Auto) Lymph # (Auto) [place] # (Auto) Eos # (Auto) Baso # (Auto) Immature Gran # (Auto) Sodium 135 L Potassium 3.9 D Chloride 105 Carbon Dioxide 22 Anion Gap 8 BUN 7 Creatinine 0.95 Est Cr Clr Drug Dosing 59.8 Est GFR ( Amer) 70.8 Est GFR (Non-Af Amer) 61.1 BUN/Creatinine Ratio 7.4 L Glucose 127 H POC Glucose 136 H Estimat Average Glucose 154 Hemoglobin A1c 7.0 H Calcium 7.9 L Phosphorus 3.6 D Magnesium 1.5 L Total Bilirubin 0.8 D AST 26 ALT 38 Alkaline Phosphatase 59 Total Protein 5.6 L Albumin 3.4 Globulin 2.2 L Albumin/Globulin Ratio 1.5 Current Inpatient Medications Current Inpatient Medications: Current Inpatient Medications Acetaminophen (Acetaminophen 325 Mg Tab) 650 mg PO Q4H PRN PRN Reason: pain/fever Stop: 12/23/21 21:49 Last Admin: 11/27/21 04:16 Dose: 650 mg Amlodipine Besylate (Amlodipine Besylate 5 Mg Tab) 10 mg PO QAM DESIREA Stop: 12/24/21 08:59 Last Admin: 11/25/21 08:55 Dose: 10 mg Atorvastatin Calcium (Atorvastatin 20 Mg Tab) 20 mg PO HS DESIRAE Stop: 12/23/21 21:49 Last Admin: 11/26/21 20:38 Dose: 20 mg Carvedilol (Carvedilol 12.5 Mg Tab) 12.5 mg PO BIDM [facility] Stop: 12/23/21 21:49 Last Admin: 11/25/21 16:59 Dose: 12.5 mg Cyanocobalamin (Cyanocobalamin 1000 Mcg/Ml Vial) 1,000 mcg IM QAM [facility] Stop: 12/01/21 09:01 Dextrose (Dextrose 50% 50 Ml Syringe) 25 - 50 ml IV UD PRN; Protocol PRN Reason: Hypoglycemia Protocol Stop: 12/26/21 16:03 Enoxaparin Sodium (Enoxaparin Inj 40 Mg/0.4 Ml Syr) 40 mg SQ Q24H DESIRAE Stop: 12/27/21 12:59 Glucagon (Glucagon For Inj 1 Mg Vial) 1 mg SQ UD PRN; Protocol PRN Reason: Hypoglycemia Protocol Stop: 12/26/21 16:03 Glucose (Glucose 40% Gel 15 Gm Tube) 15 - 30 gm PO UD PRN; Protocol PRN Reason: Hypoglycemia Protocol Stop: 12/26/21 16:03 Glucose (Glucose 10 Tab/Tube) 4 - 8 tab PO UD PRN; Protocol PRN Reason: Hypoglycemia Treatment Stop: 12/26/21 16:03 Sodium Chloride (Nss 1000ml) 1,000 mls @ 125 mls/hr IV .Q8H DESIRAE Stop: 12/25/21 23:29 Last Admin: 11/27/21 01:55 Dose: 125 mls/hr Magnesium Sulfate/Dextrose (Magnesium Sulfate / D5w) 1 gm in 100 mls @ 50 mls/hr IV Q2H DESIRAE Stop: 11/27/21 12:59 Last Admin: 11/27/21 07:33 Dose: 50 mls/hr Insulin Aspart (Insulin Aspart Per Unit) 0 units SC ACHS [facility] Stop: 12/26/21 16:29 Last Admin: 11/27/21 07:35 Dose: Not Given Lorazepam (Lorazepam 1 Mg Tab) 1 - 3 mg PO UD PRN; Protocol PRN Reason: EtoH Withdrawal AWSS 6-10+ Stop: 12/25/21 21:48 Lorazepam (Lorazepam 0.5 Mg Tab) 0.5 mg PO TID [facility] Stop: 12/26/21 09:44 Last Admin: 11/27/21 07:36 Dose: 0.5 mg Miscellaneous (Carbohydrates For Hypoglycemia ) 15 - 30 gm PO UD PRN PRN Reason: Hypoglycemia Protocol Stop: 12/26/21 16:03 Senna/Docusate Sodium (Docusate Sodium/Senna 50/8.6mg Tab) 1 tab PO QAM [facility] Stop: 12/25/21 07:44 Last Admin: 11/27/21 07:33 Dose: 1 tab Valproic Acid (Valproic Acid Soln 500 Mg/10 Ml Udc) 500 mg PO BID [facility] Stop: 12/27/21 09:59 Last Admin: 11/27/21 10:06 Dose: 500 mg
--- NOTE | 2021-11-27 10:55 | Electroencephalogram ---
EEG Procedure Note Date of Service November 27, 2021 Start / End Times Start Time: 918 End Time: 958 Referring Physician CHILO Casanova History 71-year-old with history of acute cephalopathy and seizure-like activity on November 25. Home Medication List Medication Instructions Recorded Confirmed Type acetaminophen 325 mg tablet 650 mg PO Q4H PRN Pain 11/23/21 11/23/21 History amlodipine 5 mg tablet 10 mg PO QAM 11/23/21 11/23/21 History atorvastatin 20 mg tablet 20 mg PO HS 11/23/21 11/23/21 History carvedilol 3.125 mg tablet 12.5 mg PO BIDM 11/23/21 11/23/21 History donepezil 5 mg tablet 5 mg PO HS 11/23/21 11/23/21 History hydrochlorothiazide 25 mg tablet 25 mg PO QAM 11/23/21 11/23/21 History levetiracetam 250 mg tablet 250 mg PO HS 11/23/21 11/23/21 History lisinopril 20 mg tablet 40 mg PO QAM 11/23/21 11/23/21 History metformin 500 mg tablet 1,000 mg PO BID 11/23/21 11/23/21 History potassium chloride 10 mEq 10 meq PO BID 11/23/21 11/23/21 History capsule,extended release quetiapine 25 mg tablet 12.5 mg PO Q4H PRN Agitation 11/23/21 11/23/21 History quetiapine 50 mg tablet 50 mg PO HS 11/23/21 11/23/21 History sitagliptin 50 mg tablet (Januvia) 50 mg PO BID 11/23/21 11/23/21 History venlafaxine 37.5 mg 37.5 mg PO DAILY@1300 11/23/21 11/23/21 History capsule,extended release 24 hr venlafaxine 75 mg tablet,extended 75 mg PO QAM 11/23/21 11/23/21 History release 24 hr lorazepam 0.5 mg tablet 0.5 mg PO TID 11/26/21 11/26/21 History Inpatient Medication List Acetaminophen (Acetaminophen 325 Mg Tab) 650 mg PO Q4H PRN PRN Reason: pain/fever Stop: 12/23/21 21:49 Last Admin: 11/27/21 04:16 Dose: 650 mg Documented By: Admin: 11/26/21 17:36 Dose: 650 mg Documented By: [id number] Admin: 11/24/21 09:35 Dose: 650 mg Documented By: YOANDY Amlodipine Besylate (Amlodipine Besylate 5 Mg Tab) 10 mg PO QAM DESIRAE Stop: 12/24/21 08:59 Last Admin: 11/25/21 08:55 Dose: 10 mg Documented By: Admin: 11/24/21 12:54 Dose: 10 mg Documented By: YOANDY Atorvastatin Calcium (Atorvastatin 20 Mg Tab) 20 mg PO HS DESIRAE Stop: 12/23/21 21:49 Last Admin: 11/26/21 20:38 Dose: 20 mg Documented By: Admin: 11/25/21 20:07 Dose: 20 mg Documented By: Admin: 11/24/21 20:24 Dose: 20 mg Documented By: Admin: 11/23/21 22:31 Dose: Not Given Documented By: BOY Carvedilol (Carvedilol 12.5 Mg Tab) 12.5 mg PO BIDM [facility] Stop: 12/23/21 21:49 Last Admin: 11/25/21 16:59 Dose: 12.5 mg Documented By: Admin: 11/25/21 08:55 Dose: 12.5 mg Documented By: Admin: 11/24/21 20:24 Dose: 12.5 mg Documented By: Admin: 11/24/21 12:54 Dose: 12.5 mg Documented By: Admin: 11/23/21 22:26 Dose: 12.5 mg Documented By: BOY Magnesium Sulfate/Dextrose (Magnesium Sulfate / D5w) 1 gm in 100 mls @ 50 mls /hr IV Q2H DESIRAE Stop: 11/27/21 12:59 Last Admin: 11/27/21 10:26 Dose: 50 mls/hr Documented By: Infusion: 11/27/21 09:33 Dose: 50 mls/hr Documented By: Admin: 11/27/21 07:33 Dose: 50 mls/hr Documented By: AGNES Insulin Aspart (Insulin Aspart Per Unit) 0 units SC ACHS DESIRAE Stop: 12/26/21 16:29 Last Admin: 11/27/21 07:35 Dose: Not Given Documented By: AGNES Co-signed By: [email or web address] Admin: 11/26/21 20:10 Dose: Not Given Documented By: Admin: 11/26/21 16:28 Dose: 1 units Documented By: [id number] Co-signed By: AGNES Lorazepam (Lorazepam 0.5 Mg Tab) 0.5 mg PO TID [facility] Stop: 12/26/21 09:44 Last Admin: 11/27/21 07:36 Dose: 0.5 mg Documented By: Admin: 11/26/21 20:38 Dose: 0.5 mg Documented By: Admin: 11/26/21 14:03 Dose: 0.5 mg Documented By: [id number] Admin: 11/26/21 11:12 Dose: 0.5 mg Documented By: [id number] Senna/Docusate Sodium (Docusate Sodium/Senna 50/8.6mg Tab) 1 tab PO QAM [facility] Stop: 12/25/21 07:44 Last Admin: 11/27/21 07:33 Dose: 1 tab Documented By: Admin: 11/26/21 08:17 Dose: Not Given Documented By: [id number] Admin: 11/25/21 09:11 Dose: Not Given Documented By: Admin: 11/25/21 09:11 Dose: Not Given Documented By: MYNOR Valproic Acid (Valproic Acid Soln 500 Mg/10 Ml Udc) 500 mg PO BID [facility] Stop: 12/27/21 09:59 Last Admin: 11/27/21 10:06 Dose: 500 mg Documented By: AGNES Discontinued Medications Etomidate (Etomidate 2 Mg/Ml 20 Ml Vial) 25 mg IV NOW ONE Stop: 11/25/21 21:29 Last Admin: 11/25/21 23:43 Dose: Not Given Documented By: BPPascual Fentanyl Citrate (Fentanyl Citrate 2,500 Mcg/250 Ml Bag) Confirm Administered Dose 2,500 mcg IV .STK-MED ONE Stop: 11/25/21 22:11 Last Admin: 11/25/21 23:44 Dose: Not Given Documented By: VALERIE Gadobutrol (Gadobutrol 30ml Vial) 7.8 ml IV ONCE ONE Stop: 11/26/21 11:00 Last Admin: 11/26/21 10:33 Dose: 7.8 ml Documented By: SHER Haloperidol Lactate (Haloperidol Lactate 5 Mg/Ml 1 Ml Vial) Confirm Administered Dose 5 mg .ROUTE .STK-MED ONE Stop: 11/23/21 13:30 Last Admin: 11/23/21 13:35 Dose: 2.5 mg Documented By: AB Heparin Sodium (Porcine) (Heparin Sod 5,000 Unit/0.5 Ml Vial) 5,000 units SQ Q12 [facility]IRAE Stop: 12/26/21 08:59 Last Admin: 11/27/21 07:34 Dose: 5,000 units Documented By: Admin: 11/26/21 20:38 Dose: 5,000 units Documented By: Admin: 11/26/21 08:17 Dose: 5,000 units Documented By: [id number] Sodium Chloride (Nss 1000ml) 500 mls @ 999 mls/hr IV .Q31M ONE Stop: 11/23/21 13:11 Last Infusion: 11/23/21 14:05 Dose: 0 mls/hr Documented By: Admin: 11/23/21 13:35 Dose: 999 mls/hr Documented By: AB Sodium Chloride (Nss 1000ml) 1,000 mls @ 70 mls/hr IV .[id number] [facility] Stop: 12/23/21 12:44 Last Infusion: 11/25/21 09:45 Dose: 0 mls/hr Documented By: Infusion: 11/25/21 08:48 Dose: 0 mls/hr Documented By: Admin: 11/25/21 06:40 Dose: 150 mls/hr Documented By: Infusion: 11/25/21 06:40 Dose: 150 mls/hr Documented By: Admin: 11/25/21 00:26 Dose: 150 mls/hr Documented By: Infusion: 11/25/21 00:26 Dose: 150 mls/hr Documented By: Admin: 11/24/21 20:21 Dose: Not Given Documented By: Admin: 11/24/21 18:26 Dose: 150 mls/hr Documented By: Infusion: 11/24/21 11:23 Dose: 150 mls/hr Documented By: Admin: 11/24/21 04:42 Dose: 150 mls/hr Documented By: Infusion: 11/24/21 04:39 Dose: 150 mls/hr Documented By: Admin: 11/23/21 21:58 Dose: 150 mls/hr Documented By: Infusion: 11/23/21 17:17 Dose: 0 mls/hr Documented By: Admin: 11/23/21 13:36 Dose: 150 mls/hr Documented By: Levetiracetam 500 mg/ Sodium (Chloride) 105 mls @ 420 mls/hr IV Q12H [facility] Stop: 12/26/21 08:59 Last Infusion: 11/26/21 11:26 Dose: 0 mls/hr Documented By: [id number] Admin: 11/26/21 08:18 Dose: 420 mls/hr Documented By: [id number] Midazolam HCl (Versed) 125 mg in 250 mls @ 2 mls/hr IV .Q96H DESIRAE; Protocol Stop: 12/25/21 22:14 Last Titration: 11/26/21 11:26 Dose: 0 mg/hr, 0 mls/hr Documented By: [id number] Co-signed By: AGNES Titration: 11/26/21 07:07 Dose: 2 mg/hr, 4 mls/hr Documented By: AGNES Co-signed By: VALERIE Admin: 11/25/21 23:46 Dose: 2 mg/hr, 4 mls/hr Documented By: VALERIE Co-signed By: SHAE Fentanyl Citrate (Fentanyl Citrate) 2,500 mcg in 250 mls @ 0 mls/hr IV .Q0M DESIRAE; Protocol Stop: 12/09/21 22:14 Last Titration: 11/26/21 12:12 Dose: 0 mcg/hr, 0 mls/hr Documented By: [id number] Co-signed By: AVA Titration: 11/26/21 11:45 Dose: 75 mcg/hr, 7.5 mls/hr Documented By: [id number] Co-signed By: AGNES Titration: 11/26/21 07:07 Dose: 100 mcg/hr, 10 mls/hr Documented By: AGNES Co-signed By: VALERIE Admin: 11/25/21 23:45 Dose: 100 mcg/hr, 10 mls/hr Documented By: VALERIE Co-signed By: SHAE Levetiracetam 500 mg/ Sodium (Chloride) 105 mls @ 420 mls/hr IV NOW ONE Stop: 11/25/21 22:24 Last Infusion: 11/26/21 00:26 Dose: 0 mls/hr Documented By: Admin: 11/25/21 23:44 Dose: 420 mls/hr Documented By: VALERIE Sodium Chloride (Nss 1000ml) 1,000 mls @ 125 mls/hr IV .Q8H [facility] Stop: 12/25/21 23:29 Last Admin: 11/27/21 01:55 Dose: 125 mls/hr Documented By: Infusion: 11/27/21 00:57 Dose: 125 mls/hr Documented By: Infusion: 11/26/21 22:03 Dose: 125 mls/hr Documented By: Infusion: 11/26/21 21:20 Dose: 0 mls/hr Documented By: Admin: 11/26/21 16:14 Dose: 125 mls/hr Documented By: [id number] Infusion: 11/26/21 15:31 Dose: 125 mls/hr Documented By: [id number] Admin: 11/26/21 07:31 Dose: 125 mls/hr Documented By: [id number] Infusion: 11/26/21 07:31 Dose: 125 mls/hr Documented By: [id number] Admin: 11/25/21 23:46 Dose: 125 mls/hr Documented By: VALEIRE Magnesium Sulfate/Dextrose (Magnesium Sulfate / D5w) 1 gm in 100 mls @ 50 mls/hr IV Q2H [facility] Stop: 11/26/21 04:59 Last Infusion: 11/26/21 05:31 Dose: 0 mls/hr Documented By: Y Admin: 11/26/21 03:16 Dose: 50 mls/hr Documented By: Infusion: 11/26/21 03:16 Dose: 50 mls/hr Documented By: Y Admin: 11/26/21 01:23 Dose: 50 mls/hr Documented By: VALERIE Potassium Phosphate 30 mmol/ (Sodium Chloride) 510 mls @ 88 mls/hr IV ONE ONE Stop: 11/26/21 12:32 Last Infusion: 11/26/21 14:27 Dose: 0 mls/hr Documented By: [id number] Admin: 11/26/21 07:30 Dose: 88 mls/hr Documented By: [id number] Propofol (Diprivan) 1,000 mg in 100 mls @ 0 mls/hr IV .Q0M DESIRAE; Protocol Stop: 11/29/21 07:29 Last Titration: 11/26/21 12:45 Dose: 0 mcg/kg/min, 0 mls/hr Documented By: [id number] Titration: 11/26/21 12:12 Dose: 0 mcg/kg/min, 0 mls/hr Documented By: [id number] Titration: 11/26/21 11:59 Dose: 5 mcg/kg/min, 2.4 mls/hr Documented By: [id number] Titration: 11/26/21 11:54 Dose: 10 mcg/kg/min, 4.7 mls/hr Documented By: [id number] Titration: 11/26/21 11:44 Dose: 15 mcg/kg/min, 7.1 mls/hr Documented By: [id number] Admin: 11/26/21 07:31 Dose: 20 mcg/kg/min, 9.5 mls/hr Documented By: [id number] Co-signed By: AGNES Valproic Acid 1,000 mg/ (Dextrose) 60 mls @ 55 mls/hr IV ONE ONE Stop: 11/26/21 11:05 Last Infusion: 11/26/21 12:45 Dose: 0 mls/hr Documented By: [id number] Admin: 11/26/21 11:12 Dose: 55 mls/hr Documented By: [id number] Valproic Acid 250 mg/ Dextrose 52.5 mls @ 55 mls/hr IV Q6H [facility] Stop: 12/26/21 15:59 Last Infusion: 11/27/21 05:15 Dose: 0 mls/hr Documented By: [email or web address] Admin: 11/27/21 04:17 Dose: 55 mls/hr Documented By: Infusion: 11/26/21 22:03 Dose: 0 mls/hr Documented By: Admin: 11/26/21 21:05 Dose: 55 mls/hr Documented By: Infusion: 11/26/21 17:15 Dose: 0 mls/hr Documented By: [id number] Admin: 11/26/21 16:14 Dose: 55 mls/hr Documented By: [id number] Levetiracetam (Levetiracetam 250 Mg Tab) 250 mg PO HS [facility] Stop: 12/23/21 21:49 Last Admin: 11/23/21 22:27 Dose: 250 mg Documented By: BOY Midazolam HCl (Midazolam Hcl 125mg/250ml D5w) Confirm Administered Dose 125 mg .ROUTE .STK-MED ONE Stop: 11/25/21 22:12 Last Admin: 11/25/21 23:44 Dose: Not Given Documented By: VALERIE Miscellaneous (Rapid Sequence Induction Bag) Confirm Administered Dose 1 each .ROUTE .STK-MED ONE Stop: 11/25/21 21:29 Last Admin: 11/25/21 23:43 Dose: 1 each Documented By: VALERIE Polyethylene Glycol (Polyethylene (Miralax) 17 Gm Pack) 17 gm PO DAILY [facility] Stop: 12/25/21 08:59 Last Admin: 11/25/21 08:53 Dose: Not Given Documented By: MYNOR Potassium Chloride (Potassium Chloride 20 Meq/15 Ml Udc) 40 meq PO NOW STA Stop: 11/26/21 06:36 Last Admin: 11/26/21 07:33 Dose: 40 meq Documented By: [id number] Potassium Chloride (Potassium Chloride Crtab 20 Meq Tabcr) 20 meq PO NOW STA Stop: 11/27/21 06:36 Last Admin: 11/27/21 07:33 Dose: 20 meq Documented By: [email or web address] Potassium Phosphate (Potassium Phos 3 Mmol/1 Ml Infusion) 30 mmol IV NOW STA Stop: 11/26/21 06:36 Last Admin: 11/26/21 11:30 Dose: Not Given Documented By: [id number] Propofol (Propofol Iv Emulsion 10 Mg/Ml 100 Ml Vial) Confirm Administered Dose 1,000 mg IV .STK-MED ONE Stop: 11/25/21 21:44 Last Admin: 11/25/21 23:44 Dose: Not Given Documented By: VALERIE Quetiapine Fumarate (Quetiapine Fumarate 25 Mg Tablet) 12.5 mg PO NOW STA Stop: 11/23/21 12:41 Last Admin: 11/23/21 17:18 Dose: Not Given Documented By: KAILEY Quetiapine Fumarate (Quetiapine Fumarate 25 Mg Tablet) 12.5 mg PO Q4H PRN PRN Reason: Agitation Stop: 12/23/21 21:49 Last Admin: 11/25/21 11:06 Dose: 12.5 mg Documented By: Admin: 11/24/21 09:34 Dose: 12.5 mg Documented By: YOANDY Quetiapine Fumarate (Quetiapine Fumarate 25 Mg Tablet) 50 mg PO HS DESIRAE Stop: 12/23/21 21:49 Last Admin: 11/24/21 20:25 Dose: 50 mg Documented By: Admin: 11/23/21 22:27 Dose: 50 mg Documented By: BOY Quetiapine Fumarate (Quetiapine Fumarate 25 Mg Tablet) 25 mg PO [facility] Stop: 12/25/21 20:59 Last Admin: 11/25/21 20:07 Dose: 25 mg Documented By: ESG Succinylcholine Chloride (Succinylcholine Chloride 20 Mg/Ml 10 Ml Vial) 100 mg IV NOW STA Stop: 11/25/21 21:29 Last Admin: 11/25/21 23:43 Dose: Not Given Documented By: VALERIE Venlafaxine HCl (Venlafaxine Hcl Xr 75 Mg Capxr) 75 mg PO QAM [facility] Stop: 12/24/21 08:59 Last Admin: 11/24/21 21:45 Dose: Not Given Documented By: ESG Venlafaxine HCl (Venlafaxine Hcl Xr 37.5 Mg Capxr) 37.5 mg PO QAM [facility] Stop: 12/25/21 08:59 Last Admin: 11/25/21 11:06 Dose: 37.5 mg Documented By: MYNOR Description This is a 21 electrode EEG with a single channel dedicated to limited EKG. The electrodes were placed in accordance with the International 10-20 system. Interpretation The predominant background activity consists of a fairly well modulated 8-9 Hz activity, of up to 50 mV in amplitude,seen symmetrically distributed over the posterior head regions bilaterally. This activity attenuates nicely with eye- opening and other alerting procedures. Photic stimulation was performed and elicited no change in the background activity and no abnormal responses were seen. Hyperventilation was not performed. A significant amount of muscle and movement artifact activity contaminated the recording, hindering interpretation from time to time but not to any significant degree overall. In addition the patient was talking throughout the study, intermittently, which also created artifact. Throughout the recording, no focal abnormalities, abnormal slow activity, or potentially epileptogenic discharges are seen. The patient did not enter drowsiness or sleep. In summary, this EEG was normal during wakefulness. No focal abnormalities, potentially epileptogenic discharges, or abnormal slow activity was seen. Clinical Correlation The abscence of potentially epileptogenic activity does not exclude a seizure disorder, since interictally, EEGs can be normal. Clinical correlation is required. [facility] EEG Procedure Codes Indication for Procedure (1) Seizure: (2) Acute encephalopathy: Neurology Neurology: 29334 EEG include record awake & drowsy
[2021-11-27 11:42] LABS: iSTAT Arterial Blood Gas pCO2 35 mmHg (35-46); iSTAT Arterial Blood Gas pH 7.36 (7.35-7.45); iSTAT Hematocrit 28 % (37-47); iSTAT Hemoglobin 9.5 g/dl (12.0-16.0); iSTAT Potassium 3.5 mmol/L (3.3-5.0); iSTAT Sodium 131 mmol/L (135-144)
[2021-11-27 11:43] LABS: iSTAT Arterial Blood Gas HCO3 20 meg/L (19-24); iSTAT Arterial Blood Gas pO2 76 mmHg (80-95); iSTAT Carbon Dioxide 21 mmol/L (24-31)
[2021-11-27] MEDS ORDERED: EpINEphrine HCL INJ 1 MG/ML 1ML SYRINGE IV ONE (12:07)
[2021-11-27] MEDS ORDERED: SODIUM CHLORIDE 0.9% 10ML FLUSH IV ONE (12:07)
[2021-11-27] MEDS: ENOXAPARIN INJ 40 MG/0.4 ML SYR SQ SCH (13:43)
--- NOTE | 2021-11-27 18:46 | Hospitalist Progress Note ---
Date of Service November 27, 2021 Assessment & Plan (1) Acute encephalopathy: Plan: Seems more consistent with acute metabolic encephalopathy as well as possible toxic encephalopathy from recent medication changes at psychiatric inpatient unit Discussed with psychiatry- tapered off Effexor, stopped Keppra Seroquel also seems to be causing possible akathisia-discontinued Symptoms ongoing despite resolution of GABI and improvement in sodium to close to normal Had seizure and CODE BLUE due to respiratory arrest and possible PEA on evening of 11/25--> [facility] of po lorazepam tid therefore her whole presentation is likely delirium tremens related to lorazepam withdrawal. Now in ICU, extubated, restarted po lorazepam and started IV Depakote for seizures as well as for mood MRI brain with contrast negative 11/26 NH3 52 -Supportive care, can make one-on-one sitter prn now -Not allowed to leave AMA as per Psych due to encephalopathy, but I do not believe she is there on a 302 -dc Seroquel as can lower seizure threshold, dc Effexor -awaiting EEG -Neuro consult on Saturday -continue to correct hyponatremia although I do not believe her hyponatremia is related to/the cause of her seizure -continue IVFs -adv diet as tolerated s/p extubation -started Depakote for seizures/mood, check levels daily x 3 days as per Neuro -restart home lorazepam 0.5mg po tid-if desired to stop this medication, would recommend more gradual taper On 11/27 Patient is improving. No longer appears encephalopathic. Will monitor for siezures. anticipate discharge tomorro.w (2) Seizure: Plan: as above (3) GABI (acute kidney injury): Plan: Secondary to likely poor p.o. intake and side effect of psychiatric medications and withdrawal from lorazepam causing delirium which led to the poor p.o. intake. She is also on lisinopril and HCTZ at home both of which have been held Treated with IVFs x 2 days intermittently between patient pulling ot IVs [employer] now down to 1.1 from 2.2 on admission Metabolic acidosis is now improved, and hyponatremia also improved to 134 (from 129 on admit), BUN down to 19 from 44 Urinalysis shows ketones consistent with dehydration Na+ back down to 130 after seizure remove IVF as she is tolerating diet (4) Acute dehydration: Plan: resolved as above (5) Fall: Plan: with mechanical fall-tripped while trying to run out the door, fell onto face and arm while delirious on 11/25 xrays of right wrist and CT head noncon negative continue 1:1 sitter prn (6) Diarrhea: Plan: reported on admission but she has not had a BM since admission, she thinks she is constipated started senna/docusate, Miralax (7) Hyponatremia: Plan: Suspect due to poor intake and HCTZ use Improved Follow BMP (8) Groin pain: Plan: Complained of bilateral groin pain to RN. Now appears comfortable, no abnormalities on exam Urinalysis with ketones only (9) Hypertension: Plan: Blood pressures controlled Continue amlodipine and carvedilol. Stop lisinopril and HCTZ as above (10) Hyperbilirubinemia: Plan: Total bilirubin 2.0 on admission but rest of LFTs are normal No upper abdominal pain noted on admission Total bilirubin now down to 1.2 Could be Gilbert's in the setting of dehydration Follow LFTs (11) Leukocytosis: Plan: WBC count persistently mildly elevated at 12-13 each day, afebrile, no evidence of infection anywhere With acute rise to 22 shortly after CODE suspect stress induced continue to follow clinically Plan VTE Prophylaxis - low risk and increased risk of delusions/delirium therefore deferred Diet - NPO for now until improved s/p extubation Disposition-downgrade today if continues to improve, eventually back to the [facility] psychiatric unit when encephalopathy and acute kidney injury resolved Admission and Anticipated Discharge Date Admission Date: November 25, 2021 Subjective 71 yo female reports feeling better. She has no new complaints. Review of Systems Review of Systems: All systems reviewed & are unremarkable except as noted in HPI & below Physical Exam Physical Exam: Constitutional: WD/WN, vitals as above Eyes: PERRL, conjunctivae normal, anicteric sclerae EOM intact bilaterally; no anisocoria and no nystagmus ENMT: external ear and nose normal, oropharynx normal Neck: trachea midline, no thyromegaly Respiratory: normal respiratory effort, lungs clear to auscultation Cardiovascular: RRR, no murmur, no edema Gastrointestinal (Abdomen): normal bowel sounds, soft, nontender, no hepatosplenomegaly Musculoskeletal: Extremities: no cyanosis and no clubbing Skin: no rashes, warm and dry Trauma: + abrasion (left knee, right knee scab) Psychiatric: Orientation: awake alert oriented x3, no longer has a flat affect. Results & Data Results & Data ([facility]) Vital Signs (Past 12 Hours) Vital Signs Temp Pulse Pulse Pulse Resp BP BP 11/27/21 16:10 36.8 C 99 H 14 151/69 H 11/27/21 15:42 83 11/27/21 13:06 96 H 11/27/21 08:00 37.4 C 82 18 128/59 L 11/27/21 10:00 84 20 112/80 Pulse Ox O2 Del Method O2 Flow Rate 11/27/21 16:10 92 Room Air 11/27/21 15:42 11/27/21 13:06 11/27/21 08:00 96 Nasal Cannula 2 11/27/21 10:00 99 Nasal Cannula 2 PG Care Time/CCT Total # of Minutes Spent Total Time Spent with Patient: Total time spent is greater than 50% in coordination of care (as documented) at patient's floor/unit and/or counseling patient: Coding Level of Care Code 28225 Subseq Hosp Care Lvl 3 Diagnoses Acute encephalopathy G93.40 Seizure R56.9 GABI (acute kidney injury) N17.9 Acute dehydration E86.0 Fall W19.XXXA Diarrhea R19.7 Hyponatremia E87.1 Groin pain R10.30 Hypertension I10 Hyperbilirubinemia E80.6 Leukocytosis D72.829
[2021-11-27] MEDS: ATORVASTATIN 20 MG TAB PO SCH (21:43)
[2021-11-28] MEDS: ACETAMINOPHEN 325 MG TAB PO PRN ×3 (00:20→14:08)
[2021-11-28] MEDS: DOCUSATE SODIUM/SENNA 50/8.6MG TAB PO SCH (08:58)
[2021-11-28] MEDS: VALPROIC ACID SOLN 500 MG/10 ML UDC PO SCH (08:58)
[2021-11-28] MEDS: INSULIN ASPART PER UNIT SC SCH ×3 (08:58→17:26)
[2021-11-28] MEDS: LORazepam 0.5 MG TAB PO SCH ×2 (09:03→14:08)
--- NOTE | 2021-11-28 09:38 | Neurology Progress Note ---
Date of Service November 28, 2021 Assessment & Plan (1) Seizure: (2) Acute encephalopathy: Plan Patient has a history of depression and anxiety. I am not certain of the history of psychosis but there have been note of some paranoid ideation. She was admitted with an acute encephalopathy and probably had a seizure-like episode in the evening of November 25. the etiology of her acute mental status changes was likely multifactorial, including benzodiazepine withdrawal from discontinuing lorazepam, the addition of multiple medications including donepezil, levetiracetam, and venlafaxine. Her Seroquel dose was likely increased. She had some hyponatremia and was very dehydrated on admission. Renal function was normal November 27. She does have some anemia from hydration however. Hydrochlorothiazide and carvedilol can be associated with hyponatremia. Rarely, amlodipine , donepezil, and venlafaxine can cause hyponatremia. Her sodium is normal November 27. MRI of the brain was unremarkable for any significant abnormalities, including frontal or temporal lobe atrophy. Her seizure like activity was most likely associated with the medication and benzodiazepine withdrawal. She has been loaded on valproic acid November 26 and has been on 500 mg twice daily p.o. since the . Depakote can act as a mood stabilizer as well as an anticonvulsant. trough level this morning was low normal. EEG November 27 was unremarkable. Recommendations: 1. she is off donepezil, venlafaxine, levetiracetam, olanzapine, and quetiapine 2. She is requesting Seroquel (as it helps her sleep) or another medicine that would "make her sleep". 3. continue valproic acid 500 mg p.o. twice daily, checking a trough level each morning for the next 2 days. 4. Control glucose as you are doing, aiming to lower her hemoglobin A1c from 7 down to closer to 6. 5. Continue blood pressure control as you are doing. 6. Increase activity as able. 7. The patient wants to go home instead of going back to the [facility]. I told her that that was the decision between her hospitalist and the psychiatrist. From a neurologic standpoint, I have no objection to her going home. I also explained to her that there is no specific tests that I can do to measure central nervous system serotonin levels or other neurotransmitters. Overall, I spent a total of 35 minutes with this case including review of records, direct evaluation the patient at bedside, and discussion of the case with the patient and RN at bedside, and Dr. Cantu including differential diagnosis and treatment options. Admission and Anticipated Discharge Date Admission Date: November 25, 2021 Subjective patient feels "back to her usual self" this morning. She has no pain or headache. She has many questions for me particularly about trying to understand the levels of serotonin in her brain and what we can do to help her mood via these dear chemicals. She wants to know what tests can be done to measure these levels. She states that she is worried about her son and other issues. Blood pressure is 138/69 and she is afebrile. Trough Depakote level this morning was 56 and glucose was 133. Results & Data ([facility]) Vital Signs (Past 12 Hours) Vital Signs Temp Pulse Pulse Pulse Resp BP BP 11/28/21 07:42 36.9 C 74 18 138/69 11/28/21 04:00 37 C 75 20 145/70 H 11/27/21 22:17 89 Pulse Ox O2 Del Method 11/28/21 07:42 92 Room Air 11/28/21 04:00 96 Room Air 11/27/21 22:17 Exam (Neuro) Physical Exam: she is awake and alert. She is sitting in the chair calm and pleasant. She follows one-step and other commands quite well. She is not quite as loquacious as yesterday and she does not perseverate on topics quite as much as yesterday. She is not repeating phrases. She has no dysarthria or aphasia. Extraocular eye muscles are intact without nystagmus. There is no resting, postural, or action tremor. There is no focal weakness noted. PG Care Time/CCT Total # of Minutes Spent Total Time Spent with Patient: Total time spent is greater than 50% in coordination of care (as documented) at patient's floor/unit and/or counseling patient: Coding Level of Care Code 56934 Subseq Hosp Care Lvl 3 Diagnoses Seizure R56.9 Acute encephalopathy G93.40 Time Spent (min) 35
[2021-11-28] MEDS: ENOXAPARIN INJ 40 MG/0.4 ML SYR SQ SCH (14:08)
[2021-11-28] MEDS ORDERED: ALBUTEROL HFA 8 GM INHALER INH ONE (15:14)
--- NOTE | 2021-11-28 15:54 | Psychiatric Progress Note ---
Date of Service November 28, 2021 Impression / Recommendations Impression 71 yo admitted medically as transfer from [place] due to concern for worsening mental status changes with significant hyponatremia and GABI. Diagnostically consistent with delirium likely from hyponatremia versus benzo withdrawal versus recent steroid use superimposed on worsening recent confusion and paranoia with concern for newer onset cognitive decline and prefrontal dysfunction. as per Dr. Garcia above 11/28/21: MSE improving, continues to deny SI, hx of depression with anxiety at baseline, now mainly endorses reactive to aging process. (1) Benzodiazepine withdrawal: (2) Seizure: (3) Acute encephalopathy: Plan neurology and hospitalist discussed resuming Seroquel 25 mg this hs and monitoring. Patient asked about increase in Benzodiazepine and reviewed why I would not advise that given risks/age. Reviewed that if she is not agreeing to return to inpatient psych, her medications are best managed by her outpatient psychiatrist and she and are hoping she can return home rather than inpatient psych and agree for medications to be taken as prescribed and closely monitored. Liaison was able to confirm her outpatient appt at [facility] Dr. Dooley is 12/18/21 @ 0845. Patient is not meeting 302 commitment criteria at this time as there does not appear to be any psychosis or elvie interfering with her medical decision making. Interval History Identifying Information 71 yo woman with history of possible dementia and possible BPAD [facility] for altered mental status and GABI. Psychiatry initially consulted for medication recommendations, patient's keppra, donepezil, effexor were discontinued in setting of possible benzodiazepine withdrawal seizure. Patient then extubated, loaded on Depakote and restarted on lower dose Ativan. Chief Complaint "I wasn't taking my medications correctly but then also this rash". Review of Systems Notes patient is coughing and c/o chest discomfort related to cough, audible wheeze--one time dose ventolin inhaler ordered and Dr. Cantu notified in case desires change given pharmacy alert Subjective Subjective Patient was seen & assessed and interval progress reviewed with nursing/hospitalist service. Seen with at bedside. Couple was discussing how they help care for the other as he has hearing loss following an injury and she is having recurring rashes, etc. Patient admits to taking 3 mg of Ativan daily and then "extra Seroquel." has maintained that her thoughts are organized at baseline and neither them seem to understand the [facility] referral and voice concerns about going back there given that "her meds were taken and locked away" Reviewed that this is typical psych unit protocol. Reviewed the dangers of not taking medications as prescribed, particularly given risk of falls with benzodiazepines in patients over 65 and potential for anticholinergic side effects. It's likely she has been using more antihistamines before received steroids in ED. She continues to report that a neighbor is bothering her but that she doesn't own a gun and doesn't plan to get one for protection. seems to support this neighbor is problematic but can't list anything specific. She reports a good and longstanding relationship with her outpatient psychiatrist Dr. Dooley in [place]. She has consistently denied suicidal ideation in meeting with me and she and her deny this was cause for admission to [facility]. Records from [facility] are limited, seems she seemed confused and uncooperative and then decompensated further with some paranoid delusions related to her delirium. Physical Exam Psychiatric Orientation: alert and oriented x 3 Apperance: appropriately groomed Eye Contact: + fair eye contact Motor Behavior: no abnormal motor movements Speech: normal rate/rhythm/volume of speech Affect: + constricted affect Mood: + anxious mood Thought Process: + concrete thought process Thought Content: reality based without delusions Suicidal Thoughts: denies suicidal thoughts Homicidal Thoughts: denies homicidal thoughts Hallucinations: no auditory hallucinations and no visual hallucinations Cognition: attention grossly intact and language grossly intact Estimated Intelligence: consistent with education level Insight: + fair insight Vital Signs (Past 24 Hours) Last Vital Signs Temp 37.2 C 11/28/21 12:02 Pulse 83 11/28/21 12:02 Resp 18 11/28/21 12:02 BP 134/62 11/28/21 12:02 Pulse Ox 94 11/28/21 12:02 O2 Del Method 11/28/21 07:42 O2 Flow Rate 2 11/27/21 10:00 FiO2 30 11/26/21 08:53 Results & Data ([facility]) Laboratory Results Laboratory Results - last 24 hr 11/27/21 11/27/21 11/28/21 16:58 20:02 07:06 POC Glucose 171 H 164 H Valproic Acid 56 11/28/21 11/28/21 07:34 11:27 POC Glucose 133 H 170 H Valproic Acid Current Inpatient Medications Current Inpatient Medications: Current Inpatient Medications Acetaminophen (Acetaminophen 325 Mg Tab) 650 mg PO Q4H PRN PRN Reason: pain/fever Stop: 12/23/21 21:49 Last Admin: 11/28/21 14:08 Dose: 650 mg Amlodipine Besylate (Amlodipine Besylate 5 Mg Tab) 10 mg PO QAM [facility] Stop: 12/24/21 08:59 Last Admin: 11/25/21 08:55 Dose: 10 mg Atorvastatin Calcium (Atorvastatin 20 Mg Tab) 20 mg PO HS [facility] Stop: 12/23/21 21:49 Last Admin: 11/27/21 21:43 Dose: 20 mg Carvedilol (Carvedilol 12.5 Mg Tab) 12.5 mg PO BIDM [facility] Stop: 12/23/21 21:49 Last Admin: 11/25/21 16:59 Dose: 12.5 mg Cyanocobalamin (Cyanocobalamin 1000 Mcg/Ml Vial) 1,000 mcg IM QAM [facility] Stop: 12/01/21 09:01 Dextrose (Dextrose 50% 50 Ml Syringe) 25 - 50 ml IV UD PRN; Protocol PRN Reason: Hypoglycemia Protocol Stop: 12/26/21 16:03 Enoxaparin Sodium (Enoxaparin Inj 40 Mg/0.4 Ml Syr) 40 mg SQ Q24H [facility] Stop: 12/27/21 12:59 Last Admin: 11/28/21 14:08 Dose: 40 mg Glucagon (Glucagon For Inj 1 Mg Vial) 1 mg SQ UD PRN; Protocol PRN Reason: Hypoglycemia Protocol Stop: 12/26/21 16:03 Glucose (Glucose 40% Gel 15 Gm Tube) 15 - 30 gm PO UD PRN; Protocol PRN Reason: Hypoglycemia Protocol Stop: 12/26/21 16:03 Glucose (Glucose 10 Tab/Tube) 4 - 8 tab PO UD PRN; Protocol PRN Reason: Hypoglycemia Treatment Stop: 12/26/21 16:03 Insulin Aspart (Insulin Aspart Per Unit) 0 units SC ACHS [facility] Stop: 12/26/21 16:29 Last Admin: 11/28/21 12:32 Dose: 1 units Lorazepam (Lorazepam 1 Mg Tab) 1 - 3 mg PO UD PRN; Protocol PRN Reason: EtoH Withdrawal AWSS 6-10+ Stop: 12/25/21 21:48 Lorazepam (Lorazepam 0.5 Mg Tab) 0.5 mg PO TID [facility] Stop: 12/26/21 09:44 Last Admin: 11/28/21 14:08 Dose: 0.5 mg Miscellaneous (Carbohydrates For Hypoglycemia ) 15 - 30 gm PO UD PRN PRN Reason: Hypoglycemia Protocol Stop: 12/26/21 16:03 Senna/Docusate Sodium (Docusate Sodium/Senna 50/8.6mg Tab) 1 tab PO QAM [facility] Stop: 12/25/21 07:44 Last Admin: 11/28/21 08:58 Dose: Not Given Valproic Acid (Valproic Acid Soln 500 Mg/10 Ml Udc) 500 mg PO BID [facility] Stop: 12/27/21 09:59 Last Admin: 11/28/21 08:58 Dose: 500 mg
[2021-11-29] MEDS ORDERED: CYANOCOBALAMIN 1000 MCG/ML VIAL IM SCH (09:00)
== END 2021-11-28 18:07 | DRG 682 ==
LOC: 3N 10:44 → ED 10:44 → SUATTDRO 16:29 → 3N 20:26 → SUATTDRO 11-25 15:13 → 1E 11-25 22:10 → 2W 11-27 10:48